=== PATIENT | male | born 1945 | race Caucasian/White ===

== ENCOUNTER 2022-02-05 14:23 | Outpatient (CLI) | payer MEDICARE, SELFPAY ==
[2022-02-05 17:50] LABS: Cholesterol* 167 mg/dL (90-199); HDL Cholesterol* 57 mg/dL (>=40); LDL Cholesterol Calculated 87 mg/dL (<100); Triglycerides* 116 mg/dL (40-149)
== END 2022-02-05 14:24 | disposition home or self-care (01) ==
LOC: NFLDREF 14:23
PROVIDERS: PCP Internal Medicine; Visit Provider Internal Medicine
DX: I25.10 Atherosclerotic heart disease of native coronary artery without angina pectoris (principal); I10 Essential (primary) hypertension
CPT/HCPCS: 80061

== ENCOUNTER 2022-11-11 15:45 | Outpatient (RCR) | payer MEDICARE, SELFPAY ==
--- NOTE | 2022-10-01 15:47 | PT.OPEX ---
PT [place] Outpatient Eval INITIAL EVAL MEDICARE REQUIRES SIGNATURE PT [facility] Outpatient Eval Start: 10/01/22 07:33 Freq: Status: Active Protocol: Document 10/01/22 07:33 ADRIEN (Rec: 10/01/22 15:43 ADRIEN [id number]) E-signed By Enzo Caballero DPT Physical Therapy Outpatient Evaluation Insurance Information Recert Due Date 12/25/22 Insurance Name Medicare B Insurance Information/Comments AARP Medical Diagnosis L TKA Treating Diagnosis L knee pain muscle weakness Referring MD Alec corbett Subjective Subjective Vel comes into clinic for a pre op visit prior to his L TKA on 10/07/22. Does notice he has some 'knock knee' presentation. Does note he has a cartilage condition where it has effected more of joints . States he has a hard time, walking, standing, sitting any prolonged activity really irritates it. HE is unable to perform stairs with the L knee . Overall just wants to get back into normal activity along with working in his [employer]op. Date of Surgery (If applicable) 10/13/22 Current Work Status Retired Objective Other/Pertinent Objective GAIT/FUNCTIONAL MOBILITY ambulates in step through pattern with increased knee valgus KNEE ROM L 2-134 LLE MMT: Hip flexion: L 4/5 Hip abduction: L4- /5 Knee flexion:L 4/5 Knee extension: L4 /5 TX: long sitting quad set x10 w/5 sec isometric hold performed ankle pumps x10 supine hamstring sets x10 w/5 sec isometric hold supine SAQ x10 w/cueing for isometric contraction at top of arc of motion with slow eccentric supine SLR flexion x10 w/ cueing for isometric contraction at top of arc of motion with slow eccentric supine heel slide x 10 w/3-5 sec hold at end range holding for stretch seated LAQ x10 w/cueing for isometric contraction at top of arc of motion with slow eccentric seated heel slides x5 with 30 sec holds into stretch passive knee ext stretch x 3 min - education on longer duration post-op educated on frequency to perform HEP post operatively Assessment Assessment/Impression Pt is a 77 yr old male who presents with concerns of L knee pain and pre op visit before L TKA. Patient also has notable objective findings including limited ROM, impaired balance, decreased strength also likely contributing to the problem. Patient is a good candidate for skilled therapy to target deficits described above. Skilled PT intervention is necessary for use of therapeutic exercise manual therapy, neuromuscular re- education, gait training, and therapeutic activity. Functional impairments include difficulty with: walking, standing, stairs, . See appropriate sections of PT eval for complete list of goals and POC. D/C plan and criteria is for pt to achieve the goals as listed below or until max rehab potential is met. Pt was agreeable with plan of care and goals established Plan of Care Rehabilitation Potential Excellent Physical Therapy Goals TKA GOALS STG (within 5 weeks ) 1) Pt will improve knee AROM at least 0 to 100 for improved sit to stand transfers 2) Pt will demonstrate negative extensor lag during straight leg raise exercise with ability to complete at least 15 reps with 5 sec hold to improve strength for ambulation 3) Patient will demonstrate/ report ability to walk for 15 minutes w/SPC with pain level <1/10, to allow for community and household ambulation. 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 Coordination/Communication With Referral Source Treatment Plan/Direct Interventions Gait Training,Joint Mobilization,Manual Therapy, Neuromuscular Re-ed,Self-Care/ Home Management,Therapeutic Activities,Therapeutic Exercises Frequency/Duration 1-2 a week for 8-16 weeks Patient Will Be Discharged From Therapy Completion of LTG(s), Independent w/HEP Evaluation Billing Untimed Code Treatment Minutes 20 Complexity Low Certification Information Initial Certification Date 10/01/22 Ending Certification Date 12/25/22 Physician Comment/Change : Physician NPI Number #
== END 2023-01-06 13:34 | disposition home or self-care (01) ==
PROVIDERS: PCP Internal Medicine; Visit Provider Orthopaedic Surgery Sports Medicine
DX: M17.12 Unilateral primary osteoarthritis, left knee (principal); M25.562 Pain in left knee; M62.81 Muscle weakness (generalized); Z96.652 Presence of left artificial knee joint; Z51.89 Encounter for other specified aftercare
CPT/HCPCS: 97110; 97112; 97140; 97161; 97164; 97530

== ENCOUNTER 2023-03-12 10:53 | Emergency (ER) | payer MEDICARE, SELFPAY ==
[2023-03-12 10:59] VITALS: BP 149/87; PULSE 74; RESP 16; TEMP 37.1; O2SAT 96; BMI 29.0
[2023-03-12] MEDS: LIDOCAINE 1 % PF 30 ML INJECTION (11:40)
[2023-03-12] MEDS: TETANUS/DIPHTH/PERTUSSIS 0.5 ML SYRINGE IM (12:07)
--- NOTE | 2023-03-12 12:43 | ED.NURSE ---
after stitches, bacitracin, Telfa, tube gauze, applied per tyler from
[2023-03-12 13:00] VITALS: BP 140/97; PULSE 75; RESP 16
--- NOTE | 2023-03-12 14:13 | ED.WOUNDLAC ---
HPI - Wound/Laceration General Date Seen: 03/12/23 Chief Complaint: Laceration/Wound Stated Complaint: L index finger lac Time Seen by Provider: 03/12/23 11:06 Source: patient Mode of arrival: ambulatory Limitations: no limitations History of Present Illness HPI narrative: Patient is a very nice 78-year-old gentleman who was doing some woodworking in a shop, and injured his left index finger, he ripped it through. But is able to move his finger normally, denies any numbness tingling, but thought he probably needs stitches. Sure when his last tetanus shot is, he is on no Coumadin, presents here for help. Place: home Patient tetanus UTD: No Context: accidental Associated symptoms: none Treatments prior to arrival: bandage Related Data Home Medications Medication Instructions Recorded Confirmed desoximetasone 0.25 % topical cream 1 applic topical BID PRN 02/05/22 11/17/22 diclofenac sodium 1 % topical gel 2 g topical BID PRN 02/05/22 11/17/22 multivitamin (Multiple Vitamins 1 tab PO QAM 02/05/22 11/17/22 tablet) timolol maleate 0.25 % eye drops 1 drp ophthalmic (eye) QAM 02/05/22 11/17/22 albuterol sulfate 90 mcg/actuation 2 inh inhalation Q4H PRN 10/05/22 11/17/22 aerosol inhaler fluorouracil 5 % topical cream 1 applic topical Q7D 10/05/22 11/17/22 mirtazapine 7.5 mg tablet 7.5 mg PO HS 10/05/22 11/17/22 Previous Rx's Medication Instructions Recorded bupropion HCl 150 mg 24 hr tablet, 150 mg PO DAILY #90 tabs 02/05/22 extended release hydrochlorothiazide 25 mg tablet 25 mg PO DAILY #90 tabs 02/05/22 escitalopram oxalate 20 mg tablet 20 mg PO QDAY #90 tabs 06/11/22 acetaminophen 500 mg capsule 500 - 1,000 mg (1 - 2 x 500 mg) PO 10/08/22 Q6H PRN #100 caps atomoxetine 40 mg capsule 40 mg PO QDAY #30 caps 12/02/22 (Strattera) pantoprazole 40 mg tablet,delayed 40 mg PO DAILY #90 tabs 01/05/23 release clopidogrel 75 mg tablet 75 mg PO DAILY #90 tabs 02/23/23 Allergies Allergy/AdvReac Type Severity Reaction Status Date / Time cephalexin Allergy Severe Swelling Verified 03/12/23 10:59 of Lip/Tongue/Throat clindamycin Allergy Mild Rash Verified 03/12/23 10:59 Review of Systems Status of ROS: Reports: 6 or more systems reviewed and unremarkable except as noted in History and below [facility] Medical History History of opioid abuse ?F11.11 - Opioid abuse, in remission (ICD-10) History of alcohol use disorder ?Z87.898 - Personal history of other specified conditions (ICD-10) Arterial dissection ?I77.70 - Dissection of unspecified artery (ICD-10) History of pancreatitis ?Z87.19 - Personal history of other diseases of the digestive system (ICD-10) Surgical History (Updated 11/17/22 @ 09:38 by Yecenia Nina) 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) ?Z96.659 - Presence of unspecified artificial knee joint (ICD-10) Status post total shoulder replacement (2016) ?Z96.619 - Presence of unspecified artificial shoulder joint (ICD-10) 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) ?Z96.649 - Presence of unspecified artificial hip joint (ICD-10) History of cholecystectomy (05/06/11) ?Z90.49 - Acquired absence of other specified parts of digestive tract (ICD-10) History of cataract extraction (2019) ?Z98.49 - Cataract extraction status, unspecified eye (ICD-10) Family History (Updated 09/22/22 @ 12:23 by Cailin Davies RN) Sister High blood pressure Breast cancer Mother High blood pressure Father High blood pressure Angina at rest CHF (congestive heart failure) Social History (Reviewed 11/17/22 @ 09:19 by Ana Martin [facility], [facility]) Highest level of school completed/degree received: Doctoral degree Smoking Status: Former smoker What tobacco products do you use: cigarettes Years smoked: 8 Smoking quit date/years: >15 years ago Do you use any of these nicotine containing products: None How often do you have a drink containing alcohol: monthly or less Alcohol type: wine How many standard drinks containing alcohol do you have on a typical day: 1 or 2 AUDIT-C Alcohol total score: 1 Non-prescribed substance use: marijuana (any form) Non-prescribed substance use details: THC Gummies Caffeine: Yes (coffee, 1-2 cups/am) Little interest or pleasure in doing things: several days Feeling down, depressed, or hopeless: more than half the days Exam Narrative: Exam Narrative: Examination of left index finger shows normal range of motion is pretty significant PIP arthritis, but is able to extend it fully and flex it fully at both the PIP and the IP joint is sensation is normal over his finger also. Cap refill is excellent. There is a flap, between his PIP and D IP, and area of avulsion within this. The flap is approximately 2 cm in the area of avulsed skin which appears to be more than just epidermal. Is approximately 1 and half to 2 centimeter sq. I explained to him that I can so up part of the flap part of it will have to fill in by secondary intention the good news is there is no exposed tendon. Modified the inter digital block was done with 1% lidocaine without epinephrine x4 mL. I was able to and the sewed up with 3 simple 4-0 sutures. Bacitracin dry dressing applied, no evidence of any foreign bodies. Estimated blood loss less than 1 mL no complication Const: Vital Signs, click to edit/add: Vital Signs - 24 hr 03/12/23 10:59 03/12/23 13:00 Temperature 98.7 F Pulse Rate [Pulse Oximeter] 74 75 Respiratory Rate 16 16 Blood Pressure [Ri ght Upper Arm] 149/87 H 140/97 H Pulse Oximetry 96 Oxygen Delivery Me thod Room Air Documenting provider has reviewed patient's vital signs: yes Course Vital Signs Vital signs: Initial Vital Signs Temperature 98.7 F 03/12/23 10:59 Temperature Source Temporal Artery Scan 03/12/23 10:59 Pulse Rate 74 03/12/23 10:59 Respiratory Rate 16 03/12/23 10:59 Blood Pressure 149/87 H 03/12/23 10:59 Blood Pressure Mean 107 H 03/12/23 10:59 Blood Pressure Position Sitting 03/12/23 10:59 Pulse Oximetry 96 03/12/23 10:59 Oxygen Delivery Method Room Air 03/12/23 10:59 Vital Signs Temperature 98.7 F 03/12/23 10:59 Pulse Rate 74 03/12/23 10:59 Respiratory Rate 16 03/12/23 10:59 Blood Pressure 149/87 H 03/12/23 10:59 Pulse Oximetry 96 03/12/23 10:59 Oxygen Delivery Method Room Air 03/12/23 10:59 Temperature 98.7 F 03/12/23 10:59 Pulse Rate 75 03/12/23 13:00 Respiratory Rate 16 03/12/23 13:00 Blood Pressure 140/97 H 03/12/23 13:00 Pulse Oximetry 96 03/12/23 10:59 Oxygen Delivery Method Room Air 03/12/23 10:59 Discharge Plan Discharge Clinical Impression: Finger laceration Patient Disposition: Home, Self-Care Condition: Improved Instructions: Finger Laceration (ED) Additional Instructions: Home rest use of medication for pain Tylenol ibuprofen, bacitracin daily on the wound, sutures should come out in 14 days, signs of infection such as redness fever swelling increasing pain then you should come back and be seen. Activity Level: No Restrictions Prescriptions: No Action timolol maleate 0.25 % drops 1 drp ophthalmic (eye) QAM diclofenac sodium 1 % gel 2 g topical BID PRN desoximetasone 0.25 % cream 1 applic topical BID PRN multivitamin [Multiple Vitamins] Tablet 1 tab PO QAM hydrochlorothiazide 25 mg tablet 25 mg PO DAILY Qty: 90 3RF bupropion HCl 150 mg tablet extended release 24 hr 150 mg PO DAILY Qty: 90 3RF escitalopram oxalate 20 mg tablet 20 mg PO QDAY Qty: 90 3RF albuterol sulfate 90 mcg/actuation HFA aerosol inhaler 2 inh inhalation Q4H PRN fluorouracil 5 % cream 1 applic topical Q7D Rx Instructions: Apply topically to affected area one night (Wednesday) every week mirtazapine 7.5 mg tablet 7.5 mg PO HS acetaminophen 500 mg capsule 500 - 1,000 mg PO Q6H MDD 4000mg PRNQty: 100 0RF atomoxetine [Strattera] 40 mg capsule 40 mg PO QDAY Qty: 30 1RF Rx Instructions: take one cap daily for adhd pantoprazole 40 mg tablet,delayed release (DR/EC) 40 mg PO DAILY Qty: 90 2RF clopidogrel 75 mg tablet 75 mg PO DAILY Qty: 90 0RF Follow Up/Referrals: [place] Jacques MD [Primary Care Provider] - Stand Alone Forms: [employer] Info Instructions
== END 2023-03-12 13:00 | disposition home or self-care (01) ==
PROVIDERS: Emergency Provider Family Medicine; PCP Internal Medicine
DX: S61.211A Laceration without foreign body of left index finger without damage to nail, initial encounter (principal)
CPT/HCPCS: 12001; 90471; 90715; 99283; 99284; J2001

== ENCOUNTER 2023-03-19 08:24 | Outpatient (CLI) | payer MEDICARE, SELFPAY | END 2023-03-19 08:25 | disposition home or self-care (01) | LOC: NFLDREF 03-22 12:51 | PROVIDERS: PCP Internal Medicine; Referring Provider Internal Medicine; Visit Provider Internal Medicine | DX: I25.10 Atherosclerotic heart disease of native coronary artery without angina pectoris (principal); I10 Essential (primary) hypertension | CPT/HCPCS: 80048; 80061 ==

== ENCOUNTER 2023-11-29 08:51 | Inpatient (IN) | payer MEDICARE, SELFPAY ==
[2023-11-29] VITALS (19 sets, daily range): BP systolic 105–131; BP diastolic 60–93; PULSE 58–77; RESP 14–18; TEMP 36.9–38; O2SAT 91–98; BMI 28.2; BMI 28.0
--- NOTE | 2023-11-29 08:56 | ED.GENADULT ---
HPI - General Adult General Time Seen by Provider: 08:56 Date Seen: 11/29/23 Chief complaint: Skin/Abscess/Foreign Body Stated complaint: LT hand skin abscess Time Seen by Provider: 11/29/23 08:58 Source: patient, RN notes reviewed and old records reviewed Mode of arrival: ambulatory Limitations: no limitations History of Present Illness HPI narrative: 78-year-old male who comes in today with concern of infection of his left hand. Patient reports that he had a splinter in his left hand about 10 days ago, in developed a pus pocket and then the splinter came out but noted increased redness and swelling. Seen in two days ago and started on Bactrim, increased pain and swelling so came to the emergency department. Denies fever or chills, no nausea or vomiting. Related Data Home Medications ?Medication ?Instructions ?Recorded ?Confirmed desoximetasone 0.25 % topical cream 1 applic topical BID PRN 02/05/22 11/29/23 diclofenac sodium 1 % topical gel 2 g topical BID PRN 02/05/22 11/29/23 multivitamin (Multiple Vitamins 1 tab PO QAM 02/05/22 11/29/23 tablet) timolol maleate 0.25 % eye drops 1 drp ophthalmic (eye) QAM 02/05/22 11/29/23 albuterol sulfate 90 mcg/actuation 2 inh inhalation Q4H PRN 10/05/22 11/29/23 aerosol inhaler fluorouracil 5 % topical cream 1 applic topical Q7D 10/05/22 11/29/23 escitalopram oxalate 20 mg tablet 20 mg PO DAILY 11/29/23 11/29/23 Previous Rx's ?Medication ?Instructions ?Recorded acetaminophen 500 mg capsule 500 - 1,000 mg (1 - 2 x 500 mg) PO 10/08/22 Q6H PRN #100 caps clopidogrel 75 mg tablet 75 mg PO DAILY #90 tabs 03/25/23 hydrochlorothiazide 25 mg tablet 25 mg PO DAILY #90 tabs 03/25/23 mirtazapine 7.5 mg tablet 7.5 mg PO HS #90 tabs 03/25/23 pantoprazole 40 mg tablet,delayed 40 mg PO DAILY #90 tabs 03/25/23 release bupropion HCl 150 mg 24 hr tablet, 150 mg PO DAILY #90 tabs 12/01/23 extended release methylphenidate HCl 18 mg 18 mg PO QAM #90 tabs 09/02/23 tablet,extended release 24 hr (Concerta) sulfamethoxazole 800 1 tab PO BID 7 days #14 tabs 11/27/23 mg-trimethoprim 160 mg tablet Allergies Allergy/AdvReac Type Severity Reaction Status Date / Time cephalexin Allergy Severe Swelling Verified 11/29/23 09:01 of Lip/Tongue/Throat clindamycin Allergy Mild Rash Verified 11/29/23 09:01 [facility] Medical History (Updated 11/29/23 @ 09:40 by Luis Esposito MD) History of arterial dissection ?Z86.79 - Personal history of other diseases of the circulatory system (ICD-10) History of pancreatitis ?Z87.19 - Personal history of other diseases of the digestive system (ICD-10) Surgical History 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) ?Z96.659 - Presence of unspecified artificial knee joint (ICD-10) Status post total shoulder replacement (2016) ?Z96.619 - Presence of unspecified artificial shoulder joint (ICD-10) 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) ?Z96.649 - Presence of unspecified artificial hip joint (ICD-10) History of cholecystectomy (05/06/11) ?Z90.49 - Acquired absence of other specified parts of digestive tract (ICD-10) History of cataract extraction (2019) ?Z98.49 - Cataract extraction status, unspecified eye (ICD-10) Family History Sister High blood pressure Breast cancer Mother High blood pressure Father High blood pressure Angina at rest CHF (congestive heart failure) Social History What is your current living situation?: I presently have a place to live Problems where you live: no known problems Problems where you live details: NA In the past 12 months, utilities in danger of being shut off: no In past 12 months, lack of transportation kept you from medical appts, meetings, work, or getting things needed for daily living: yes In the past 12 mos, have been you worried that your food would run out before you had money to buy more?: never true In the past 12 mos, the food you bought just didn't last and you didn't have money to buy more?: never true Highest level of school completed/degree received: Master's degree Smoking Status: Former smoker What tobacco products do you use: cigarettes Years smoked: 8 Smoking quit date/years: >15 years ago Do you use any of these nicotine containing products: None Second hand tobacco smoke exposure: No How often do you have a drink containing alcohol: monthly or less Alcohol type: wine and hard liquor How many standard drinks containing alcohol do you have on a typical day: 1 or 2 How often do you have six or more drinks on one occasion: Never AUDIT-C Alcohol total score: 1 Non-prescribed substance use: marijuana (any form) Non-prescribed substance use details: THC Gummies Caffeine: Yes (coffee and tea) How often does anyone, including family, friends and others, physically hurt you: never How often does anyone, including family, friends and others, insult or talk down to you: rarely How often does anyone, including family, friends and others, threaten you with harm: never How often does anyone, including family, friends and others, scream or curse at you: never Little interest or pleasure in doing things: several days Feeling down, depressed, or hopeless: several days service: No Exam Narrative: Exam Narrative: General: Well-developed and well-nourished, no acute distress Head: Atraumatic and normocephalic Eyes: Pupils are equal reactive, extraocular motions intact, conjunctiva clear ENT: External nose and ears are normal, posterior pharynx without erythema or exudate Neck: No midline cervical tenderness, full spontaneous range of motion the neck, trachea midline, no adenopathy Heart: Regular rate and rhythm no murmurs or thrills Lungs: Clear to auscultation bilaterally without wheezes or crackles Abdomen: Soft, nontender, nondistended with active bowel sounds Musculoskeletal: Left hand- palmar swelling over the distal 3rd metacarpal with central pustule, on the dorsum of the hand there is some redness between the 2nd and 3rd metacarpals with streaking on the extensor surface the forearm to the elbow Neurologic: Awake, alert, and oriented x3, no gross focal neurologic deficits, cranial nerves intact as tested Psych: Mood and affect are appropriate Skin: No rashes Const: Vital Signs, click to edit/add: Vital Signs - 24 hr 11/29/23 08:56 11/29/23 10:09 11/29/23 10:10 Temperature 99.1 F Pulse Rate 60 61 Pulse Rate [Left P ulse Oximeter] Pulse Rate [Pulse Oximeter] 66 Respiratory Rate 14 18 18 Blood Pressure 113/71 116/71 Blood Pressure [Ri ght Arm] Blood Pressure [Ri ght Upper Arm] 119/73 Pulse Oximetry 96 97 98 Oxygen Delivery Me thod Room Air 11/29/23 10:15 11/29/23 10:20 11/29/23 10:25 Temperature Pulse Rate 60 59 L 59 L Pulse Rate [Left P ulse Oximeter] Pulse Rate [Pulse Oximeter] Respiratory Rate 18 16 14 Blood Pressure 117/72 119/73 110/68 Blood Pressure [Ri ght Arm] Blood Pressure [Ri ght Upper Arm] Pulse Oximetry 97 97 97 Oxygen Delivery Me thod Room Air Room Air Room Air 11/29/23 10:30 11/29/23 10:35 11/29/23 10:40 Temperature Pulse Rate 59 L 59 L 58 L Pulse Rate [Left P ulse Oximeter] Pulse Rate [Pulse Oximeter] Respiratory Rate 16 16 16 Blood Pressure 111/70 105/65 113/73 Blood Pressure [Ri ght Arm] Blood Pressure [Ri ght Upper Arm] Pulse Oximetry 97 98 96 Oxygen Delivery Me thod Room Air Room Air Room Air 11/29/23 10:45 11/29/23 10:50 11/29/23 11:00 Temperature 98.8 F Pulse Rate 59 L 59 L 70 Pulse Rate [Left P ulse Oximeter] Pulse Rate [Pulse Oximeter] Respiratory Rate 16 16 16 Blood Pressure 114/69 115/72 117/93 H Blood Pressure [Ri ght Arm] Blood Pressure [Ri ght Upper Arm] Pulse Oximetry 97 98 95 Oxygen Delivery Me thod Room Air Room Air Room Air 11/29/23 13:33 11/29/23 13:45 Temperature 98.5 F 98.5 F Pulse Rate 65 Pulse Rate [Left P ulse Oximeter] 65 Pulse Rate [Pulse Oximeter] Respiratory Rate 18 18 Blood Pressure 119/60 Blood Pressure [Ri ght Arm] 119/60 Blood Pressure [Ri ght Upper Arm] Pulse Oximetry 95 95 Oxygen Delivery Me thod Room Air Room Air Course Course ED Course: Review prior urgent care visit from November 26 at which time ooze seen with palmar swelling and left hand min going on for several days, patient was started on Bactrim and notes increased pain since then. Reevaluation(s) Time of Reevaluation #1: 09:38 Reevaluation #1: Care discussed Dr. Ortiz, orthopedics, who evaluated the patient. Plan to go to OR for incision and drainage with washout, agrees with plan for admission afterward. Does request that antibiotics be held until after procedure. Time of Reevaluation #2: 10:23 Reevaluation #2: Labs ordered and independently interpreted by mood normal CBC, normal basic panel. On discussion with hospitalist Dr. Douglas, was informed there were no hospital beds after being told at the beginning and shows that there was 1 bed left the hospital. Spoke with warehouse puller, patient is in the OR now and will need to determine disposition. Vital Signs Vital signs: Initial Vital Signs Temperature 99.1 F 11/29/23 08:56 Temperature Source Temporal Artery Scan 11/29/23 08:56 Pulse Rate 66 11/29/23 08:56 Respiratory Rate 14 11/29/23 08:56 Blood Pressure 119/73 11/29/23 08:56 Blood Pressure Mean 88 11/29/23 08:56 Blood Pressure Position Sitting 11/29/23 08:56 Pulse Oximetry 96 11/29/23 08:56 Oxygen Delivery Method Room Air 11/29/23 08:56 Vital Signs Temperature 99.1 F 11/29/23 08:56 Pulse Rate 66 11/29/23 08:56 Respiratory Rate 14 11/29/23 08:56 Blood Pressure 119/73 11/29/23 08:56 Pulse Oximetry 96 11/29/23 08:56 Oxygen Delivery Method Room Air 11/29/23 08:56 Temperature 98.5 F 11/29/23 13:45 Pulse Rate 65 11/29/23 13:45 Respiratory Rate 18 11/29/23 13:45 Blood Pressure 119/60 11/29/23 13:45 Pulse Oximetry 95 11/29/23 13:45 Oxygen Delivery Method Room Air 11/29/23 13:45 Medications Administered Medications: Generic Name Dose Route Start Last Admin Trade Name Freq PRN Reason Stop Dose Admin Lactated Ringer's 1,000 mls @ 75 mls/hr 11/29/23 13:32 11/29/23 14:44 Lactated Ringers 1000 Ml IV 75 mls/hr .[id number] EDIE Administration Piperacillin Sod/Tazobactam 100 mls @ 200 mls/hr 11/29/23 15:00 11/29/23 15:28 Sod 3.375 gm/ Sodium Chloride IVPB 200 mls/hr Q6H EDIE Administration Discontinued Medications Generic Name Dose Route Start Last Admin Trade Name Freq PRN Reason Stop Dose Admin Bupivacaine HCl 10 ml 11/29/23 10:57 11/29/23 10:25 Bupivacaine 0.5 % 10 Ml Vial INJECTION 11/29/23 10:58 5 ml ONCE ONE Administration Lidocaine/Epinephrine 20 ml 11/29/23 10:58 11/29/23 10:25 Lidocaine 1%-Epi 1:100,000 20 Ml INFILTRATI 11/29/23 10:59 5 ml ONCE ONE Administration Oxycodone HCl 2.5 mg 11/29/23 12:00 11/29/23 12:00 Oxycodone 5 Mg Tablet PO 11/29/23 12:01 2.5 mg ONCE ONE Administration Oxycodone HCl 2.5 mg 11/29/23 12:45 11/29/23 13:47 Oxycodone 5 Mg Tablet PO 11/29/23 12:46 Not Given ONCE ONE Potassium Bicarbonate 50 meq 11/29/23 15:00 11/29/23 15:28 Potassium Bicarb 25 Meq Effervescent Tab PO 11/29/23 15:01 50 meq ONCE ONE Administration Medical Decision Making Lab Data Labs: Lab Results 11/29/23 Range/Units 09:43 WBC 10.17 (4.50-11.00) K/uL RBC 4.49 (4.30-5.90) m/uL Hgb 13.4 L (13.5-17.5) gm/dL Hct 40.8 (37.0-53.0) % MCV 91 (80-100) fL MCH 30 (26-34) pg MCHC 33 (32-36) gm/dL RDW Coeff of Eloy 14.0 (11.5-15.5) % Plt Count 240 (140-440) K/uL Neut % (Auto) 79.4 H (42.0-72.0) % Lymph % (Auto) 7.9 L (20-44) % Henry % (Auto) 9.5 (0.0-11.0) % Eos % (Auto) 2.7 (0.0-7.0) % Baso % (Auto) 0.3 (0.0-3.0) % Neut # (Auto) 8.10 H (1.7-7.0) K/uL Lymph # (Auto) 0.80 L (0.90-2.90) K/uL Henry # (Auto) 1.00 H (0.00-0.90) K/UL Eos # (Auto) 0.27 (0.00-0.50) K/uL Baso # (Auto) 0.03 (0.00-0.30) K/uL Abs Immat Gran (auto) 0.02 (0.00-0.30) K/uL Imm/Tot Granulo (auto) 0.2 % Sodium 137 (135-149) mmol/L Potassium 3.3 L (3.6-5.1) mmol/L Chloride 103 (96-114) mmol/L Carbon Dioxide 27 (20-32) mmol/L Anion Gap 7 (7-15) mEq/L BUN 11 (7-30) mg/dL Creatinine 0.7 (0.5-1.5) mg/dL Estimated Creat Clear 55.08 Estimated GFR 93 ml/min Glucose 120 H (60-115) mg/dL Calcium 8.8 (8.4-10.6) mg/dL Discharge Plan Discharge Clinical Impression: Abscess of left hand, Cellulitis of hand, left Patient Disposition: Admitted As Observation
[2023-11-29 09:51] LABS: Basophils Absolute Auto 0.03 K/uL (0.00-0.30); Basophils Percent Auto 0.3 % (0.0-3.0); Eosinophils Absolute Auto 0.27 K/uL (0.00-0.50); Eosinophils Percent Auto 2.7 % (0.0-7.0); Hematocrit 40.8 % (37.0-53.0); Hemoglobin* 13.4 gm/dL (13.5-17.5); Immature Granulocytes Abs Auto 0.02 K/uL (0.00-0.30); Immature Granulocytes Pct Auto 0.2 %; Lymphocytes Percent Auto 7.9 % (20-44); Mean Corpuscular HGB Conc 33 gm/dL (32-36); Mean Corpuscular Hemoglobin 30 pg (26-34); Mean Corpuscular Volume 91 fL (80-100); Monocytes Percent Auto 9.5 % (0.0-11.0); Neutrophils Percent Auto 79.4 % (42.0-72.0); Platelet Count* 240 K/uL (140-440); Red Blood Count 4.49 m/uL (4.30-5.90); White Blood Count* 10.17 K/uL (4.50-11.00)
[2023-11-29 09:53] LABS: Slide Review Reflex No
[2023-11-29 10:03] LABS: Chloride* 103 mmol/L (96-114)
[2023-11-29 10:04] LABS: Potassium* 3.3 mmol/L (3.6-5.1); Sodium* 137 mmol/L (135-149)
[2023-11-29 10:06] LABS: Creatinine* 0.7 mg/dL (0.5-1.5); Est. Creatinine Clearance* 55.08; Estimated Glomerular Filt Rate 93 ml/min
--- NOTE | 2023-11-29 10:06 | ED.NURSE ---
Patient presenting to ED with an abcess/infection to palm of his L hand. Pt reporting 2 weeks ago had a wooden sliver. Did not seek medical care until Wednesday, pt placed on Bactrim for possible cellulitis infection. Site has worsened and spread. Now reporting low grade fever with redness and swelling to area. PT to OR this visit for I&D. Verbal order from physician to hold ordered antibiotics. IV was placed and blood sent to lab.
[2023-11-29 10:07] LABS: Anion Gap 7 mEq/L (7-15); Blood Urea Nitrogen* 11 mg/dL (7-30); Calcium* 8.8 mg/dL (8.4-10.6); Carbon Dioxide* 27 mmol/L (20-32); Glucose* 120 mg/dL (60-115)
--- NOTE | 2023-11-29 10:08 | PM.ORCN ---
History of Present Illness HPI Date Seen: 11/29/23 Chief complaint: LT hand skin abscess Narrative: Vel is a pleasant 78-year-old male who presented [facility] ED on 11/29/2023 (today). This pertains to his left hand. He reports a splinter in his left hand approximately 10 days ago. Wood splinter. He noted a pus pocket was present but eventually this had rupture which resulted in the splinter coming out. Unfortunately, redness, pain, swelling persisted in the volar aspect on line with the left long finger near the MCP joint location. He does have swelling into the finger, but no hailey pain about the volar long finger. Seen in urgent care two days ago and started on Bactrim; unfortunately, still developed increased pain and swelling and thus present to the ED today. Orthopedics was consulted for possible surgical intervention. 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) ?Z96.649 - Presence of unspecified artificial hip joint (ICD-10) History of cholecystectomy (05/06/11) ?Z90.49 - Acquired absence of other specified parts of digestive tract (ICD-10) History of cataract extraction (2019) ?Z98.49 - Cataract extraction status, unspecified eye (ICD-10) Family History Sister High blood pressure Breast cancer Mother High blood pressure Father High blood pressure Angina at rest CHF (congestive heart failure) Social History What is your current living situation?: I presently have a place to live Problems where you live: no known problems In the past 12 months, utilities in danger of being shut off: no In past 12 months, lack of transportation kept you from medical appts, meetings, work, or getting things needed for daily living: no In the past 12 mos, have been you worried that your food would run out before you had money to buy more?: never true In the past 12 mos, the food you bought just didn't last and you didn't have money to buy more?: never true Highest level of school completed/degree received: Doctoral degree Smoking Status: Former smoker What tobacco products do you use: cigarettes Years smoked: 8 Smoking quit date/years: >15 years ago Do you use any of these nicotine containing products: None How often do you have a drink containing alcohol: monthly or less Alcohol type: wine How many standard drinks containing alcohol do you have on a typical day: 1 or 2 AUDIT-C Alcohol total score: 1 Non-prescribed substance use: marijuana (any form) Non-prescribed substance use details: THC Gummies Caffeine: Yes (coffee, 1-2 cups/am) How often does anyone, including family, friends and others, physically hurt you: never How often does anyone, including family, friends and others, insult or talk down to you: rarely How often does anyone, including family, friends and others, threaten you with harm: never How often does anyone, including family, friends and others, scream or curse at you: never Little interest or pleasure in doing things: several days Feeling down, depressed, or hopeless: several days Meds Home Medications and Allergies Home Medications ?Medication ?Instructions ?Recorded ?Confirmed ?Type desoximetasone 0.25 % topical cream 1 applic topical BID PRN 02/05/22 11/29/23 History diclofenac sodium 1 % topical gel 2 g topical BID PRN 02/05/22 11/29/23 History multivitamin (Multiple Vitamins 1 tab PO QA02/05/22 11/29/23 History tablet) timolol maleate 0.25 % eye drops 1 drp ophthalmic (eye) QA02/05/22 11/29/23 History albuterol sulfate 90 mcg/actuation 2 inh inhalation Q4H PRN 10/05/22 11/29/23 History aerosol inhaler fluorouracil 5 % topical cream 1 applic topical Q7D 10/05/22 11/29/23 History Allergies Allergy/AdvReac Type Severity Reaction Status Date / Time cephalexin Allergy Severe Swelling Verified 11/29/23 09:01 of Lip/Tongue/Throat clindamycin Allergy Mild Rash Verified 11/29/23 09:01 Ortho Exam Narrative Exam Narrative: He is lying supine in the emergency room bed. Cooperative with the exam. Memory intact both remote and recent events regarding today's presenting complaint. Left hand exam shows 1 cm scab over the volar MCP joint in line with the 3rd ray. Surrounding erythema over a 3 cm diameter region. Some erythema into the left long finger volarly and dorsally. There is swelling about the left long finger, but nontender along the volar flexor tendon region. He is able to actively flex his finger without significant pain. There is some tenderness in the left volar palm but this feels supple without significant swelling outside of the local 3 cm erythematous region. Minor erythema tracking into the dorsal aspect of the left forearm, subtle. Neurologically intact in the radial, ulnar, and median nerves to sensory light touch and motor function. Digit tip is pink, warm, brisk cap refill. Const Vital Signs, click to edit/add: Vital Signs - 24 hr 11/29/23 08:56 Temperature 99.1 F Pulse Rate [Pulse Oximeter] 66 Respiratory Rate 14 Blood Pressure [Right Upper Arm] 119/73 Pulse Oximetry 96 Oxygen Delivery Method Room Air Results Labs Labs: Laboratory Results - last 48 hr 11/29/23 09:43 WBC 10.17 RBC 4.49 Hgb 13.4 L Hct 40.8 MCV 91 MCH 30 MCHC 33 RDW Coeff of Eloy 14.0 Plt Count 240 Neut % (Auto) 79.4 H Lymph % (Auto) 7.9 L Citrus % (Auto) 9.5 Eos % (Auto) 2.7 Baso % (Auto) 0.3 Neut # (Auto) 8.10 H Lymph # (Auto) 0.80 L [place] # (Auto) 1.00 H Eos # (Auto) 0.27 Baso # (Auto) 0.03 Abs Immat Gran (auto) 0.02 Imm/Tot Granulo (auto) 0.2 Assessment and Plan Assessment and plan (1) Abscess of left hand: Status: Acute Plan Had a good discussion today with the patient. His was present as well. We recognize this abscess has been brewing for multiple days. He has been started on oral antibiotics 2 days ago in yet things still persists/worsens. In my opinion, I do think surgery is indicated to incise and drain this left hand abscess on the palmar aspect. Done this will be done within the next 30 minutes. Partly to decrease the abscess and bacterial load, but also partly to decrease the risk for freely in flexor tenosynovitis. I do not think he has this currently, but I think he is at risk for given its location. We discussed risks, benefits, and alternatives to the surgery. Specific for him, the risk for persistent infection, or development of purulent flexor tenosynovitis. I believe all questions were answered. We will plan to send a local anesthetic. I have coordinated care with the emergency room physician. Following the surgery, the plan will be to have the patient admitted to the hospitalist for IV antibiotics. Thereafter, eventually transitioning back to oral antibiotics when felt to be appropriate.
--- OUTSIDE RECORDS SUMMARY | 2023-11-29 10:11 | XMS_ITS ---
Author Organization [facility] Address [address] [place] [address] Care Team Providers Care Marine Steward Name Role Phone Unavailable Unavailable Unavailable Surgery Details Not on file Complications Check Surgery Details section. Procedure Estimated Blood Loss Check Surgery Details section. Procedure Findings Check Surgery Details section. Procedure Specimens Taken Check Surgery Details section.
--- OUTSIDE RECORDS SUMMARY | 2023-11-29 10:11 | XMS_ITS | Clinical Summary ---
Author Organization [facility] Address [address] [place] [address] Care Team Providers Care Network Support Specialist Name Role Phone Unavailable Primary Care Provider Unavailabl e Source Comments Patient records contain information from all sites at [facility]. For routine questions regarding patient records, call [phone] during business hours, M-F 8:00 AM - 5:00 PM Central Time. Record requests for emergency care only can be directed to [phone] at any time.[facility] Allergies Active Allergy Reactions Criticality Noted Date Comments Cephalexin Other (see comments),Swelling,Anap hylaxis High 03/15/2014 Difficult breathing Clindamycin Other (see comments) Low 03/25/2023 Nut - Unspecified Itching 06/22/2014 Pistachio Clams GI intolerance 06/22/2014 Medications Medication Sig Dispensed Refills Start Date End Date Status ascorbic acid, vitamin C, (VITAMIN C) 500 mg tablet Take 1 tablet by mouth 2 (two) times a day. 03/26/2015 Active buPROPion XL (WELLBUTRIN XL) 150 mg 24 hr tablet Take 150 mg by mouth. 02/01/2014 Active clopidogreL (PLAVIX) 75 mg tablet Take 75 mg by mouth. 02/01/2014 Active desoximetasone (TOPICORT) 0.25 % ointment Apply topically. Active diclofenac sodium (VOLTAREN) 1 % gel 02/27/2015 Active escitalopram (LEXAPRO) 20 mg tablet Take 1 tablet by mouth daily. 03/26/2015 Active hydroCHLOROthiazi de (HYDRODIURIL) 25 mg tablet 08/28/2018 Active miscellaneous medical supply [facility] [place] BIPAP machine for home use at pressure: EPAP min/max- 12cm/H2O, PS min/max- 3-15 cm/H2O, I time to 3, BR- 10; Heated humidifier x 1, 07/21/2018 Active methylphenidate HCl (RITALIN) 5 mg tablet 2 (two) times a day. 12/14/2015 Active mirtazapine (REMERON) 7.5 mg tablet Take 7.5 mg by mouth. 10/20/2018 Active multivitamin tablet Take 1 tablet by mouth daily. 03/26/2015 Active oxymetazoline (AFRIN) 0.05 % nasal spray Administer into affected nostril(s). 02/28/2018 Active pantoprazole (PROTONIX) 40 mg EC tablet Take 40 mg by mouth. 02/01/2014 Active timolol (TIMOPTIC) 0.25 % ophthalmic solution 09/21/2017 Active ketoconazole (NIZORAL) 2 % shampoo WASH AFFECTED AREAS ON FACE AND SCALP 2-3X WEEKLY. LATHER AND LET SIT FOR SEVERAL MINUTES BEFORE RINSING. 05/27/2023 Active ketoconazole (NIZORAL) 2 % cream APPLY A THIN LAYER TO AFFECTED AREA ON THE FOREHEAD 1-2X DAILY ONGOING. 05/27/2023 Active montelukast (SINGULAIR) 10 mg tablet Take 10 mg by mouth. 02/28/2018 11/24/2023 Discontinued( Discontinued by another clinician) multivitamin (THERAGRAN) tablet Take 1 tablet by mouth daily. 11/24/2023 Discontinued( Discontinued by another clinician) brimonidine (Alphagan) 0.2 % ophthalmic solution daily. 09/21/2017 11/24/2023 Discontinued( Discontinued by another clinician) gabapentin (Neurontin) 600 mg tablet Take 2 tablets by mouth 3 (three) times a day. 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 Dysfunction Somatic Cervical Region (Primary Dx); Dysfunction Somatic Thoracic Region; Dysfunction Somatic Lumbar Region; Scoliosis; Pain Myofascial 11/10/2023 8:00 AM CDT Comprehensive Visit Department of Spine in [place], [place] [address] [place] [phone] Regulo Tello APRN C.N.PHu [facility] Dysfunction Somatic Thoracic Region (Primary Dx); Dysfunction Somatic Cervical Region; Dysfunction Somatic Lumbar Region; Scoliosis; Pain Myofascial 08/30/2023 9:55 AM CDT - 08/30/2023 11:59 PM CDT [place] [address] [place] [phone] Regulo Tello APRN, C.N.P. Scoliosis Discharge Disposition: Home or Self Care 08/30/2023 8:00 AM CDT Comprehensive Visit Department of Spine in [place], [place] [address] [place] [phone] Regulo Tello APRN, C.N.P. Scoliosis (Primary Dx); Other Forms Of Scoliosis Lumbar Region; Pain Neck 08/30/2023 6:16 AM CDT - 08/30/2023 9:54 AM CDT [facility] [place] [place] [address] [place] [phone] Dionisio Carreon M.D. Other Forms Of Scoliosis Lumbar Region; Pain Back; Pain Neck Discharge Disposition: Home or Self Care from Last 3 Months Immunizations Name Administration Dates Next Due Influenza Split 03/20/2013 Pneumococcal, Unspecified 06/10/2013 Family History Medical History Relation Name Comments Rheum arthritis Sister 1 pat Sleep apnea Sister 1 pat Hypertension Sister 2 all Hyperlipidemia Sister 3 mark Skin cancer Sister 3 mark Sleep apnea Sister 3 mark Breast cancer Sister 4 domo Relation Name Status Comments Sister 1 pat Sister 2 all Sister 3 mark Sister 4 domo Social History Tobacco Use Types Packs/Day Years Used Date Smoking Tobacco: Former Cigarettes Q uit: 10/23/1975 Smokeless Tobacco: Never Tobacco Cessation:Counseling Given: Not Answered Alcohol Use Standard Drinks/Week Comments Yes 3 (1 standard drink = 0.6 oz pur e alcohol) Social Connection and Isolation Panel [NHANES] A nswer Date Recorded In a typical week, how many times do you talk on the phone with family, friends, or neighbors? Twice a week 01/23/2020 How often do you get together with friends or re latives? Once a week 01/23/2020 Attends Christianity Services Not on file 01/22 Active Member of Clubs or Organizations Not on f ile 01/23/2020 Attends Club or Organization Meetings Not on shanta e 01/23/2020 Marital Status Not on file 01/23/2020 AUDIT-C Answer Date Recorded Frequency of Alcohol Consumption 2-4 times a wed01/23/2020 Average Number of Drinks 1 or 2 020 Frequency of Binge Drinking Never 05/2019 Overall Financial Resource Strain (CARDIA) Answe r Date Recorded How hard is it for you to pa y for the very basics like food, housing, medical care, and heating? Not very hard 01/23/2020 [facility] - Occupational Stress Questionnaire Answer Date Recorded Feeling of Stress Rather much 01/23/2020 Exercise Vital Sign Answer Date Recorde d On average, how many days pe r week do you engage in moderate to strenuous exercise (like a brisk walk)? 3 days 01/23/2020 On average, how many minutes do you engage in exercise at this level? 50 min 01/23/2020 Hunger Vital Sign Answer Date Recorded Worried About Running Out of Food in the Last Ye ar Never true 01/23/2020 Ran Out of Food in the Last Year Never true 01/23/2020 PRAPARE - Transportation Answer Date Re corded Lack of Transportation (Medical) No 01/23/2020 Lack of Transportation (Non-Medical) No 01/23/2020 Nutrition Answer Date Recorded Nutrition: EVOO Fat Source No 01/22 On average, how many serving s of fruits and vegetables do you eat per day (serving size is equal to 1 cup or approximately the size of a tennis ball)? 2-3 01/23/2020 Dental Answer Date Recorded Dental: Regular Dentist Unknown 02/24/20 23 Education Answer Date Recorded What is the highest level of school you have completed or the highest degree you have received? Doctorate 11/07/2018 Sex and Gender Information Value Date Recorded Sex Assigned at Male 11/07/2018 10:45 PM CDT Gender Identity Male 11/07/2018 10:38 PM CDT Sexual Orientation Straight 11/07/2018 10 :38 PM CDT Last Filed Vital Signs Vital Sign Reading Time Taken Comments Blood Pressure 128/71 11/10/2023 7:50 AM CDT Pulse 73 11/10/2023 7:50 AM CDT Temperature - - Respiratory Rate 14 07/11/2014 1:05 PM ZINC SKIMMER Vital sign result from Clinical Notes. Oxygen Saturation - - Inhaled Oxygen Concentration - - Weight 86.4 kg (190 lb 7.6 oz) 06/08/2023 3:13 PM ZINC SKIMMER Height 169.2 cm (5' 6.61) 06/08/2023 3 :13 PM ZINC SKIMMER Body Mass Index 30.18 06/08/2023 3:13 PM ZINC SKIMMER Plan of Treatment Upcoming Encounters Date Type Department Care Team (Late st Contact Info) Description 12/08/2023 9:00 AM CDT Office Visit Department of Spine in [place], [place] [address] [place] [address] [facility] [address] [place] [phone] 01/06/2024 7:30 AM CDT Office Visit Department of Spine in [place], [place] [address] [place] [address] [facility] [address] [place] [phone] Health Maintenance Due Date Last Done Comments Zoster Vaccines (1 of 2) 1993 Pneumococcal vaccine (65+ ye ars) (2 of 2 - PPSV23 or PCV20) 06/05/2016 06/05/2015, 06/10/2013, 06/10/2013 Depression Screening (Annual PHQ-2) 05/24/2023 Fall Risk Screen (Annual) 05/24/2023 COVID-19 Vaccine (2022-2 4 season) 2023 02/17/2023, 04/08/2022, 10/29/2021, Additional history exists Influenza Vaccine (#1) 2024 , 04/08/2022, 07/31/2019, Additional history exists Creatinine Level (Kidney Fun ction Test) 06/08/2024 06/08/2023, 10/15/2020, 01/20/2013, Additional history exists Potassium Level 06/08/2024 06/08/2023, 09/22, 01/20/2013, Additional history exists Sodium Level 06/08/2024 06/08/2023, 09/22, 01/20/2013, Additional history exists DTaP,Tdap,and Td Vaccines (4 - Td or Tdap) 03/12/2033 03/12/2023, 03/12/2014, 05/08/2013 Medical Devices Implanted Type Area Lens Molder Device Identifier Shelf Expiration Date Model / Serial / Lot Conversions - Default Historical Implant Device Implanted:09/12 (Quantity not on file) Hip Implant Description:Device Status Te xt - Hip Imp. Conversions - Default Historical Implant Device Implanted:09/12 (Quantity not on file) Hip Implant Description:Device Status Te xt - Hip Imp. Knee Implant Knee Implant Left: Knee Description:Knee replacement 10/07/2022 Conversions - Default Historical Implant Device Implanted:06/22 (Quantity not on file) Misc Other Description:Device Status Te xt - MiscOther. left shoulder and right hip implant. Conversions - Default Historical Implant Device Implanted:09/12 (Quantity not on file) Shoulder Implant Description:Device Status Te xt - Shoulder. Procedures Procedure Name Priority Date/Time Associated Diagnosis Comments DX ENTIRE SPINE SCOLIOSIS 2-3 VIEWS RAD - Routine (most inpatients and all outpatients) 08/30/2023 10:37 AM CDT Scoliosis DX CERVICAL SPINE 2-3 VIEWS RAD - Routine (most inpatients and all outpatients) 08/30/2023 7:23 AM CDT Other Forms Of Scoliosis Lumbar Region Pain Neck DX LUMBAR SPINE 2-3 VIEWS RAD - Routine (most inpatients and all outpatients) 08/30/2023 7:23 AM CDT Other Forms Of Scoliosis Lumbar Region Pain Back SODIUM, S/P Routine 06/08/2023 6:53 AM ZINC SKIMMER Vascular Agustina Danlos Syndrome (HCC) POTASSIUM, S/P Routine 06/08/2023 6:53 AM ZINC SKIMMER Vascular Agustina Danlos Syndrome (HCC) CREATININE WITH EGFR, S/P Routine 06/08/2023 6:53 AM ZINC SKIMMER Vascular Agustina Danlos Syndrome (HCC) from Last 3 Months or Most Recently Relevant to Health Maintenance Results * DX Entire Spine Scoliosis 2-3 Views (08/30/2023 10:37 AM CDT) Anatomical Region Laterality Modality Spine, Musculoskeletal RST L OS, Neuroradiology ARZ LOS, Muskuloskeletal FLA LOS N/A Digital Radiography Impressions 08/30/2023 11:17 AM CDT Full-length standing views of the entire spine obtained for scoliosis evaluation. Thoracolumbar scoliosis with multilevel degenerative disc disease, marginal hypertrophic change, and degenerative facet arthritis. Right STAN. Left TSA. 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 Cholecystectomy. ?? Narrative 08/30/2023 11:17 AM CDT EXAM: ??DX ENTIRE SPINE SCOLIOSIS 2-3 VIEWS Procedure Note Saúl Paulino M.D. - 08/30/2023 EXAM: DX ENTIRE SPINE SCOLIOSIS 2-3 VIEWS IMPRESSION: Full-length standing views of the entire spine obtained for scoliosisevaluation. Thoracolumbar scoliosis with multilevel degenerative discdisease, marginal hypertrophic change, and degenerative facet arthritis.Right STAN. Left TSA. 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 Cholecystectomy. Regulo Tello APRN, C.N.P. IMG DIAGNOSTI C IMAGING PROCEDURES * DX Lumbar Spine 2-3 Views (08/30/2023 7:23 AM CDT) Anatomical Region Laterality Modality Lumbar Spine, Musculoskeleta l RST LOS, Neuroradiology ARZ LOS, Muskuloskeletal FLA LOS N/A Digital Radiography Impressions 08/30/2023 8:11 AM CDT Demineralization. Lumbar scoliosis, convex to the left. Advanced degenerative arthritis lumbar spine with facet joint arthropathy and diffuse disk space narrowing. Degenerative arthritis sacroiliac joints. Right STAN. Surgical clips RUQ. Narrative 08/30/2023 8:11 AM CDT EXAM: ??DX LUMBAR SPINE 2-3 VIEWS Procedure Note Himanshu Brownlee M.D. - 08/30/2023 EXAM: DX LUMBAR SPINE 2-3 VIEWS IMPRESSION: Demineralization. Lumbar scoliosis, convex to the left. Advanceddegenerative arthritis lumbar spine with facet joint arthropathy anddiffuse disk space narrowing. Degenerative arthritis sacroiliac joints.Right STAN. Surgical clips RUQ. Dionisio Carreon M.D. IMG DIAGNOSTIC IM AGING PROCEDURES * DX Cervical Spine 2-3 Views (08/30/2023 7:23 AM CDT) Anatomical Region Laterality Modality Cervical Spine, Musculoskele urszula RST LOS, Neuroradiology ARZ LOS, Muskuloskeletal FLA LOS N/A Digita l Radiography Impressions 08/30/2023 8:13 AM CDT Advanced degenerative arthritis of the cervical spine has progressed since 05/04/12. Hypertrophy at the cervical facet and uncovertebral joints. Degenerative narrowing of the C3-C7 interspaces. Reversal of the normal cervical lordosis. Low-grade anterior subluxation of C2 on C3 and C4 on C5. Posterior subluxation C3 on C4. ?? Narrative 08/30/2023 8:13 AM CDT EXAM: ??DX CERVICAL SPINE 2-3 VIEWS Procedure Note Himanshu Brownlee M.D. - 08/30/2023 EXAM: DX CERVICAL SPINE 2-3 VIEWS IMPRESSION: Advanced degenerative arthritis of the cervical spine has progressed since05/04/12. Hypertrophy at the cervical facet and uncovertebral joints.Degenerative narrowing of the C3-C7 interspaces. Reversal of the normalcervical lordosis. Low-grade anterior subluxation of C2 on C3 and C4 on C5. Posteriorsubluxation C3 on C4. Dionisio Carreon M.D. IMG DIAGNOSTIC IM AGING PROCEDURES * Sodium (06/08/2023 6:53 AM ZINC SKIMMER) Sodium, S 141 135 - 145 mmol/L 06/08/2023 7:55 AM ZINC SKIMMER DTL Blood (Blood, Venous) 06/08/2023 6:53 AM ZINC SKIMMER 06/08/2023 7:36 AM ZINC SKIMMER Dionisio Carreon M.D. LAB BLOOD ADD-ON Performing Organization Address City/[facility]/ZIP Co de Phone Number [facility] [address] [place] [address], [facility] [address] [address] * Potassium (06/08/2023 6:53 AM ZINC SKIMMER) Potassium, S 3.9 3.6 - 5.2 mmol/L 06/08/2023 7:55 AM ZINC SKIMMER DTL Blood (Blood, Venous) 06/08/2023 6:53 AM ZINC SKIMMER 06/08/2023 7:36 AM ZINC SKIMMER Dionisio Carreon M.D. LAB BLOOD ADD-ON Performing Organization Address City/[facility]/ZIP Co de Phone Number [facility] [address] [place] [address], [facility] [address] [address] * Creatinine with Estimated GFR (06/08/2023 6:53 AM ZINC SKIMMER) Creatinine 0.84 0.74 - 1.35 mg/dL 06/08/2023 7:55 AM ZINC SKIMMER DTL Estimated GFR (eGFR) 88 >=60 mL/min/BSA 06/08/2023 7:55 AM ZINC SKIMMER DTL Comment: Estimated GFR calculated using the 2020 CKD_EPI creatinine equation. Blood (Blood, Venous) 06/08/2023 6:53 AM ZINC SKIMMER 06/08/2023 7:36 AM ZINC SKIMMER Dionisio Carreon M.D. LAB BLOOD ADD-ON [facility] [address] [place] [address], [place] DTL [facility] [address] [place] [address] from Last 3 Months or Most Recently Relevant to Health Maintenance
--- OUTSIDE RECORDS SUMMARY | 2023-11-29 10:11 | XMS_ITS | Encounter Summary ---
Author Organization [facility] Address [address] [place] [phone] Care Team Providers Care Trial Justice Name Role Phone Unavailable Primary Care Provider Unavailabl e Reason for Referral * Outpatient (Routine) - Closed Specialty Diagnoses / Procedures Referred By Contac t Referred To Contact Diagnoses Scoliosis Procedures DX Entire Spine Scoliosis 2-3 Views Regulo Tello APRN, C.N.P. [address] [place] [phone] [facility] Referral ID Status Reason Start Date Expiration Date Visits Re quested Visits Authorized [id number] Closed 08/30/2023 08/29/2024 1 1 Reason for Visit * Outpatient (Routine) - Closed Specialty Diagnoses / Procedures Referred By Contac t Referred To Contact Diagnoses Scoliosis Procedures DX Entire Spine Scoliosis 2-3 Views Regulo Tello APRN, C.N.P. [address] [place] [phone] [facility] Referral ID Status Reason Start Date Expiration Date Visits Re quested Visits Authorized [id number] Closed 08/30/2023 08/29/2024 1 1 Encounter Details Date Type Department Care Team (Latest Contact Info) Description 08/30/2023 9:55 AM CDT - 08/30/2023 11:59 PM CDT Hospital Encounter Department of Radiology, [facility], in [place], [place] [address] [place] [address] Regulo Tello, LAUREANO, C.N.P. [address] [place] [address] Scoliosis Discharge Disposition: Home or Self Care Social History Tobacco Use Types Packs/Day Years Used Date Smoking Tobacco: Unknown Social Connection and Isolation Panel [NHANES] A nswer Date Recorded In a typical week, how many times do you talk on the phone with family, friends, or neighbors? Twice a week 01/23/2020 How often do you get together with friends or re latives? Once a week 01/23/2020 Attends Denominational Services Not on file 01/22 Active Member [...] care, and heating? Not very hard 01/23/2020 [facility] - Occupational Stress [...] Date Recorded Dental: Regular Dentist Unknown 02/24/20 Education Answer Date Recorded What is the highest level of school you have completed or the highest degree you have received? Doctorate 11/07/2018 Sex and Gender Information Value Date Recorded Sex Assigned at Male 11/07/2018 10:45 PM CDT Gender Identity Male 11/07/2018 10:38 PM CDT Sexual Orientation Straight 11/07/2018 10 :38 PM CDT documented as of this encounter Medications at Time of Discharge Medication Sig Dispensed Refills Start Date End Date ascorbic acid, vitamin C, (VITAMIN C) 500 mg tablet Take 1 tablet by mouth 2 (two) times a day. 03/26/2015 buPROPion XL (WELLBUTRIN XL) 150 mg 24 hr tablet Take 150 mg by mouth. 02/01/2014 clopidogreL (PLAVIX) 75 mg tablet Take 75 mg by mouth. 02/01/2014 desoximetasone (TOPICORT) 0.25 % ointment Apply topically. diclofenac sodium (VOLTAREN) 1 % gel 02/27/2015 escitalopram (LEXAPRO) 20 mg tablet Take 1 tablet by mouth daily. 03/26/2015 hydroCHLOROthiazide (HYDRODIURIL) 25 mg tablet 08/28/2018 ketoconazole (NIZORAL) 2 % cream APPLY A THIN LAYER TO AFFECTED AREA ON THE FOREHEAD 1-2X DAILY ONGOING. 05/27/2023 ketoconazole (NIZORAL) 2 % shampoo WASH AFFECTED AREAS ON FACE AND SCALP 2-3X WEEKLY. LATHER AND LET SIT FOR SEVERAL MINUTES BEFORE RINSING. 05/27/2023 methylphenidate HCl (RITALIN) 5 mg tablet 2 (two) times a day. 12/14/2015 mirtazapine (REMERON) 7.5 mg tablet Take 7.5 mg by mouth. 10/20/2018 miscellaneous medical supply [facility] [place] BIPAP machine for home use at pressure: EPAP min/max- 12cm/H2O, PS min/max- 3-15 cm/H2O, I time to 3, BR- 10; Heated humidifier x 1, 07/21/2018 multivitamin tablet Take 1 tablet by mouth daily. 03/26/2015 oxymetazoline (AFRIN) 0.05 % nasal spray Administer into affected nostril(s). 02/28/2018 pantoprazole (PROTONIX) 40 mg EC tablet Take 40 mg by mouth. 02/01/2014 timolol (TIMOPTIC) 0.25 % ophthalmic solution 09/21/2017 brimonidine (Alphagan) 0.2 % ophthalmic solution daily. 09/21/2017 11/24/2023 gabapentin (Neurontin) 600 mg tablet Take 2 tablets by mouth 3 (three) times a day. 07/15/2016 11/24/2023 montelukast (SINGULAIR) 10 mg tablet Take 10 mg by mouth. 02/28/2018 024 multivitamin (THERAGRAN) tablet Take 1 tablet by mouth daily. 11/24/2023 documented as of this encounter Plan of Treatment Upcoming Encounters Date Type Department Care Team (Late st Contact Info) Description 12/08/2023 9:00 AM CDT Office Visit Department of Spine in [place], [place] [address] [place] [phone] [facility] [address] [place] [phone] 01/06/2024 7:30 AM CDT Office Visit Department of Spine in [place], [place] [address] [place] [phone] [facility] [address] [place] [phone] documented as of this encounter Procedures Procedure Name Priority Date/Time Associated Diagnosis Comments DX ENTIRE SPINE SCOLIOSIS 2-3 VIEWS RAD - Routine (most inpatients and all outpatients) 08/30/2023 10:37 AM CDT Scoliosis documented in this encounter Results * DX Entire Spine Scoliosis 2-3 [...] APRN, C.N.P. 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
--- OUTSIDE RECORDS SUMMARY | 2023-11-29 10:11 | XMS_ITS | Encounter Summary ---
Author Organization [facility] Address [address] [place] [id number] Care Team Providers Care Color Depositing Machine Tender Name Role Phone Unavailable Primary Care Provider Unavailabl e Reason for Referral * Outpatient (Routine) - Closed Specialty Diagnoses / Procedures Referred By Contac t Referred To Contact Diagnoses Scoliosis Procedures DX Entire Spine Scoliosis 2-3 Views Regulo Tello APRN, C.N.P. [address] [place] [phone] [facility] Referral ID Status Reason Start Date Expiration Date Visits Re quested Visits Authorized [id number] Closed 08/30/2023 08/29/2024 1 1 * Outpatient (Routine) - Closed Specialty Diagnoses / Procedures Referred By Contac t Referred To Contact Spine Diagnoses Pain Neck Scoliosis Regulo Tello APRN, C.N.P. [address] [place] [phone] [facility] Referral ID Status Reason Start Date Expiration Date Visits Re quested Visits Authorized [id number] Closed 08/30/2023 02/28/2025 1 1 Reason for Visit * Outpatient (Routine) - Closed Specialty Diagnoses / Procedures Referred By Contac t Referred To Contact Spine Diagnoses Other Forms Of Scoliosis Lumbar Region Pain Neck Dionisio Carreon M.D. [address] [place] [address] [facility] Referral ID Status Reason Start Date Expiration Date Visits Re quested Visits Authorized [id number] Closed 06/08/2023 06/07/2024 1 1 Encounter Details Date Type Department Care Team (Latest Contact Info) Description 08/30/2023 8:00 AM CDT Comprehensive Visit Department of Spine in [place], [place] [address] [place] [phone] Regulo Tello, LAUREANO, C.N.P. [address] [place] [phone] Scoliosis (Primary Dx); Other Forms Of Scoliosis Lumbar Region; Pain Neck Social History Tobacco Use Types Packs/Day Years Used Date Smoking Tobacco: Unknown Social Connection and Isolation Panel [NHANES] A nswer Date Recorded In a typical week, how many times do you talk on the phone with family, friends, or neighbors? Twice a week 01/23/2020 How often do you get together with friends or re latives? Once a week 01/23/2020 Attends [employer] Not on file 01/22 Active Member [...] care, and heating? Not very hard 01/23/2020 [facility] Occupat ional Health - Occupational Stress [...] PM CDT documented as of this encounter Consult Notes * Regulo Tello, LAUREANO, C.N.P. - 08/30/2023 8:00 AM CDT CHIEF COMPLIANT: Scoliosis HISTORY OF PRESENT ILLNESS:Mr. Durbin is an 78-year-old patient from [place], [place], who returns to the [facility] for further evaluation of his neck pain and scoliosis. He met with Drs. Veronica and Shabnam back in 2012. He has also been followed by Dr. Urban in the Neurosurgery Clinic. Dr. Urban briefly discussed the option of pursuing a thoracolumbar instrumented fusion to stabilize the scoliosis, but given the patient's relatively minimal symptoms, they elected to continue with nonoperative measures. More recently, the patient met with Dr. Torres in the PM&R Clinic in 2019. At that point, they discussed pursuing a course of physical therapy. The patient had subsequent followup in our Vascular Medicine Clinic. He discussed with vascular medicine his concerns related to his ongoing neck and back pain. Therefore, he was referred back to the Spine Center by Dr. Carreon for further recommendations regarding management of his chronic neck and back pain. At the visit today, the patient describes pain located along his posterior cervical region, particularly over his right upper trapezius. He rates his pain as a 3. In addition to his neck and right shoulder-type pain, he also describes axial low back pain which is slightly more asymmetric to the left. He also describes a component of pain located near his right groin. He describes longstanding numbness in his left anterior thigh. He denies any radiation of symptoms into his arms or legs. He reports a longstanding history of weakness affect his left shoulder following a left total shoulder arthroplasty, but otherwise denies any new focal weakness to his arms or legs. He describes mild numbness in his bilateral feet, which has been longstanding. He has not noted any fine motor skill difficulties. He describes balance difficulties, but no falls. He has not had any fevers or unexplained weight loss. He denies any bowel or bladder dysfunction. He feels his posture has been worsening, particularly his coronal imbalance. He feels that his sagittal balance generally is maintained, but the more he is on his feet for long walks, the more sagittally imbalanced he becomes. TREATMENT: Physical therapy: Historically, he was very active with a home core strengthening routine, but overthe past year or two he has gotten out of his routine. He is not presently performing any core strengthening or low-impact aerobic conditioning programs. Spine injections: He has not had any spine injections over the past five or ten years. Pain medicines: He was utilizing opioids for many years, but completed our Pain Rehab program and is now only intermittently using Tylenol. He also was on gabapentin for a period of time, but he did not tolerate this. 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 CURRENT MEDICATIONS Current Outpatient Medications on File Prior to Visit Medication Sig Dispense Refill ascorbic acid, vitamin C, (VITAMIN C) 500 mg tablet Take 1 tablet by mouth 2 (two) times a day. buPROPion XL (WELLBUTRIN XL) 150 mg 24 hr tablet Take 150 mg by mouth. clopidogreL (PLAVIX) 75 mg tablet Take 75 mg by mouth. desoximetasone (TOPICORT) 0.25 % ointment Apply topically. diclofenac sodium (VOLTAREN) 1 % gel escitalopram (LEXAPRO) 20 mg tablet Take 1 tablet by mouth daily. hydroCHLOROthiazide (HYDRODIURIL) 25 mg tablet ketoconazole (NIZORAL) 2 % cream APPLY A THIN LAYER TO AFFECTED AREA ON THE FOREHEAD 1-2X DAILY ONGOING. ketoconazole (NIZORAL) 2 % shampoo WASH AFFECTED AREAS ON FACE AND SCALP 2-3X WEEKLY. LATHER AND LET SIT FOR SEVERAL MINUTES BEFORE RINSING. methylphenidate HCl (RITALIN) 5 mg tablet 2 (two) times a day. mirtazapine (REMERON) 7.5 mg tablet Take 7.5 mg by mouth. [facility] BIPAP machine for home use at pressure: EPAP min/max- 12cm/H2O, PS min/max- 3-15 cm/H2O, I time to 3, BR- 10; Heated humidifier x 1, montelukast (SINGULAIR) 10 mg tablet Take 10 mg by mouth. multivitamin (THERAGRAN) tablet Take 1 tablet by mouth daily. multivitamin tablet Take 1 tablet by mouth daily. oxymetazoline (AFRIN) 0.05 % nasal spray Administer into affected nostril(s). pantoprazole (PROTONIX) 40 mg EC tablet Take 40 mg by mouth. timolol (TIMOPTIC) 0.25 % ophthalmic solution No current facility-administered medications on file prior to visit. ALLERGIES Allergies Allergen Reactions Cephalexin Other (see comments), Swelling and Anaphylaxis Difficult breathing Nut - Unspecified Itching Pistachio Shellfish [Clams] GI intolerance Clindamycin Other (see comments) FAMILY HISTORY No family history on file. PHYSICAL EXAMINATION General: Well-developed, well-nourished individual who does not appear in any acute distress Mental: Appropriate mood and affect. Grossly oriented with coherent speech and thought processing. Spine: Inspection of the posterior cervical lumbar region did not reveal any redness, swelling or mass. Lumbar ROM limited by stiffness with both flexion and extension. His cervical range of motion is also limited flexion and extension as well as rotation. Palpation reveals an area of focal tenderness in spasms over his right upper trapezius Gait: Patient walks with a nonantalgic gait; he has difficulty with tandem gait; plantar and dorsi-flexion walking is normal; Strength: With independent testing of the bilateral upper and lower extremity strength is 5/5 throughout except left deltoid which has decreased range of motion secondary to his previous total shoulder arthroplasty Reflexes: Bilateral upper and lower extremity muscle stretch reflexes are physiologic and symmetric. No Im sign. Plantar responses are down going. No evidence of ankle clonus Provocative Maneuvers: Straight leg raise is negative. ROM of the bilateral hips did not reproduce the pain. Griffin sign is negative. Palpation over his right lateral hip reveals an area of focal tenderness. Cardiovascular: Pedal pulses are intact. No lower extremity edema. Respiratory: Breathing is comfortable and regular. DIAGNOSTICS Imaging: I reviewed his cervical spine x-ray dated from August 30, 2023, which reveals advanced multilevel spondylitic changes. He has reversal of his normal cervical lordosis. I anticipate he has ankylosed his C3-4 disk space. He also appears to have ankylosed several of his facet joints. He appearsto have a slight anterolisthesis of C2 on C3 and C4 on C5. He also appears to have a slight left-sided cervicothoracic scoliosis. I also reviewed his lumbar spine x-ray dated from August 30, 2023, compared it back to previous x-rays dated from March 22, 2020, as well as a full-length scoliosis x-ray dated from June 22, 2014.He is again noted to have a left- sided lumbar scoliosis that today I measure at approximately 53 degrees from the inferior endplate of T11 through the inferior endplate of L3. This is similar to the curvature from 2019 that I measured at approximately 49 degrees. When compared back to his full-length scoliosis x-ray from 2014, however, the curve has progressed about 10 degrees. 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 We discussed the multiple potential generators of his pain related to his spondylosis including his facet and disk degeneration. We also discussed that he likely has a component of myofascial pain. I do not detect any focal weakness. We discussed several different treatment modalities. With regard to his thoracolumbar scoliosis, although there has been some slow progression since he last saw Dr. Urban, at this time given the large magnitude ofsurgery in his other comorbidities I do not think surgery would be a good option and the patient isin agreement therefore we will continue focus on nonoperative treatment modalities. We discussed several options, and at the conclusion of our discussion he indicated and he is going to resume his home exercise core strengthening program. We also discussed options for therapeutic injections, including trigger point injections or facet-directed procedures. We discussed possible benefits of a TENS unit, acupuncture, topical ointments including capsaicin cream, as well as the role of myofascial release. The patient has had a good response to previous myofascial release, and he is interested in visiting with Dr. Mon. We reviewed signs and symptoms suggestive of progressive neurologic deterioration. He will contact me if he does not get good response with myofascial release with Dr. Mon or if he felt I could be of further assistance in his care. We have also elected to update his scoliosis x-ray. documented in this encounter Plan of Treatment Upcoming Encounters Date Type Department Care Team (Late st Contact Info) Description 12/08/2023 9:00 AM CDT Office Visit Department of Spine in [place], [place] [address] [place] [address] [facility] [address] [place] [phone] 01/06/2024 7:30 AM CDT Office Visit Department of Spine in [place], [place] [address] [place] [address] [facility] [address] [place] [phone] Scheduled Referrals Name Type Priority Associated Diagnoses Order Schedule Spine Clinic - Spine chiropractic consult (clinic) Outpatient Referral Routine Pain Neck Scoliosis Expected: 08/30/2023 (Approximate), Expires: 11/28/2024 documented as of this encounter Results * DX Entire Spine [...] documented in this encounter Visit Diagnoses Diagnosis Scoliosis- Primary Other Forms Of Scoliosis Lumbar Region Pain Neck Scoliosis documented in this encounter Additional Health Concerns Assessment Noted Time PHQ-9 Depression Total Score: 1 04/16/20 15 8:53 AM COAT EXAMINER documented as of this encounter
--- OUTSIDE RECORDS SUMMARY | 2023-11-29 10:11 | XMS_ITS | Encounter Summary ---
Author Organization [facility] Address [address] [place] [id number] Care Team Providers Care Banquet Line Cook Name Role Phone Unavailable Primary Care Provider Unavailabl e Reason for Referral * Outpatient (Routine) - Authorized Specialty Diagnoses / Procedures Referred By Contac t Referred To Contact Spine [facility] [address] [place] [phone] [facility] Referral ID Status Reason Start Date Expiration Date V isits Requested Visits Authorized [id number] Authorized 11/10/2023 05/11/2025 2 2 Reason for Visit * Outpatient (Routine) - Closed Specialty Diagnoses / Procedures Referred By Contac t Referred To Contact Spine Diagnoses Pain Neck Scoliosis Regulo Tello APRN, C.N.P. [address] [place] [phone] [facility] Referral ID Status Reason Start Date Expiration Date Visits Re quested Visits Authorized [id number] Closed 08/30/2023 02/28/2025 1 1 Encounter Details Date Type Department Care Team (Latest Contact Info) Description 11/10/2023 8:00 AM CDT Comprehensive Visit Department of Spine in [place], [place] [address] [place] [phone] Regulo Tello APRN, C.N.P. [address] [place] [phone] [facility] 200 [place] [phone] Dysfunction Somatic Thoracic Region (Primary Dx); Dysfunction Somatic Cervical Region; Dysfunction Somatic Lumbar Region; Scoliosis; Pain Myofascial Social History Tobacco Use Types Packs/Day Years [...] re latives? Once a week 01/23/2020 Attends [employer] Not on file 01/22 Active Member [...] care, and heating? Not very hard 01/23/2020 [facility] Occupat ional [facility] - Occupational Stress [...] PM CDT documented as of this encounter Last Filed Vital Signs Vital Sign Reading Time Taken Comments Blood Pressure 128/71 11/10/2023 7:50 AM CDT Pulse 73 11/10/2023 7:50 AM CDT Temperature - - Respiratory Rate - - Oxygen Saturation - - Inhaled Oxygen Concentration - - Weight - - Height - - Body Mass Index - - documented in this encounter Consult Notes * [facility] - 11/10/2023 8:00 AM CDT Images from the original note were not included. SUBJECTIVE HISTORY OF PRESENT ILLNESS Vel is a 78 y.o. male who presents today for primary complaints of right-sided neck and parascapular pain. He describes a history of chronic left-sided neck and parascapular pain that over the lastcouple of years has changed more to the right side. It is aggravated more with movement of the neckthan it is with movement of the arm. Has a fairly progressed thoracolumbar scoliosis that has tightening in the thoracolumbar region as well. Remaining history as provided by the Dey[facility] via electronic tablet is listed below. Adult Neck Pain Red Flags/HPI: Duration of symptoms: Chronic Recent change in symptoms: Yes (worsening of symptoms in the past 6 weeks with closing up a work shop) Does not have arm pain. Recent fall or accident: No Has experienced changes in bowel or bladder function (Has dealt with a recent bout of diarrhea thathe thinks may be related to increased intake of crystal light that is sweetened with aspartame. Elimination of this has gradually improved his bowel function.) and buttocks numbness (2-3 months' duration of right lateral buttock pain that he describes as a fiery burn. There is also some persistent numbness in this region. This typically is provoked with sitting.). Recently had recent weight loss (Unintentional weight loss over the last 6 weeks of about 12 lb. Has been more active and made some dietary changes that may have been contributing to the weight change.). Did not recently have fevers or chills, sickness in the last 30 days or recent surgery. Recent tests include X-ray. X-ray details: [facility] Recent treatments: ice/heat, medications and pain clinic. Response to the ice/heat treatment?: Improved (heat) Response to the medications?: Improved (Topical Voltaren to the right shoulder and parascapular region 1-2 times per day provides several hours of relief.) Response to pain clinic treatment?: No change Adult Low Back Red Flags/HPI: Symptom duration: Chronic Recent change in symptoms: Yes (4-6 month duration of spontaneous onset cold sensation to the left flank. Unable to relate specific movement or position that contributes to pain. Gradually resolves without specific intervention.) Does not have leg pain. Recent fall or accident: No Recently had recent weight loss (Unintentional weight loss over the last 6 weeks of about 12 lb. Has been more active and made some dietary changes that may have been contributing to the weight change.). Did not recently have fevers or chills, sickness in the last 30 days or recent surgery. Has experienced changes in bowel or bladder function (Has dealt with a recent bout of diarrhea thathe thinks may be related to increased intake of crystal light that is sweetened with aspartame. Elimination of this has gradually improved his bowel function.) and buttocks numbness (2-3 months' duration of right lateral buttock pain that he describes as a fiery burn. There is also some persistent numbness in this region. This typically is provoked with sitting.). Recent tests include X-ray. X-ray details: [facility] Recent treatments: pain clinic and physical therapy. Response to pain clinic treatment: No change Response to the physical therapy: Improved (Core stabilization exercises. No longer perfoms these regularly.) MEDICATIONS Current Outpatient Medications: ascorbic acid, vitamin C, (VITAMIN C) 500 mg tablet, Take 1 tablet by mouth 2 (two) times a day., Disp: , Rfl: buPROPion XL (WELLBUTRIN XL) 150 mg 24 hr tablet, Take 150 mg by mouth., Disp: , Rfl: clopidogreL (PLAVIX) 75 mg tablet, Take 75 mg by mouth., Disp: , Rfl: desoximetasone (TOPICORT) 0.25 % ointment, Apply topically., Disp: , Rfl: diclofenac sodium (VOLTAREN) 1 % gel, , Disp: , Rfl: escitalopram (LEXAPRO) 20 mg tablet, Take 1 tablet by mouth daily., Disp: , Rfl: hydroCHLOROthiazide (HYDRODIURIL) 25 mg tablet, , Disp: , Rfl: ketoconazole (NIZORAL) 2 % cream, APPLY A THIN LAYER TO AFFECTED AREA ON THE FOREHEAD 1-2X DAILY ONGOING., Disp: , Rfl: ketoconazole (NIZORAL) 2 % shampoo, WASH AFFECTED AREAS ON FACE AND SCALP 2-3X WEEKLY. LATHER AND LET SIT FOR SEVERAL MINUTES BEFORE RINSING., Disp: , Rfl: methylphenidate HCl (RITALIN) 5 mg tablet, 2 (two) times a day. , Disp: , Rfl: mirtazapine (REMERON) 7.5 mg tablet, Take 7.5 mg by mouth., Disp: , Rfl: miscellaneous medical supply mis, BIPAP machine for home use at pressure: EPAP min/max- 12cm/H2O, PS min/max- 3-15 cm/H2O, I time to 3, BR- 10; Heated humidifier x 1,, Disp: , Rfl: montelukast (SINGULAIR) 10 mg tablet, Take 10 mg by mouth., Disp: , Rfl: multivitamin (THERAGRAN) tablet, Take 1 tablet by mouth daily., Disp: , Rfl: multivitamin tablet, Take 1 tablet by mouth daily., Disp: , Rfl: oxymetazoline (AFRIN) 0.05 % nasal spray, Administer into affected nostril(s)., Disp: , Rfl: pantoprazole (PROTONIX) 40 mg EC tablet, Take 40 mg by mouth., Disp: , Rfl: timolol (TIMOPTIC) 0.25 % ophthalmic solution, , Disp: , Rfl: ALLERGIES Allergies Allergen Reactions Cephalexin Other (see comments), Swelling and Anaphylaxis Difficult breathing Nut - Unspecified Itching Pistachio Shellfish [Clams] GI intolerance Clindamycin Other (see comments) PAST MEDICAL HISTORY No past medical history on file. 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 FAMILY HISTORY No family history on file. SOCIAL HISTORY Social History Tobacco Use Smoking status: Unknown OBJECTIVE PHYSICAL EXAM GENERAL: 78 y.o. male in no acute distress with appropriate affect. SKIN: Inspection of the skin does not reveal any rashes or lesions to the cervical, thoracic, or lumbar regions. CARDIOVASCULAR: No upper or lower extremity edema is noted. MUSCULOSKELETAL EXAM: Diminished cervical and trunk rotation to the right with provocation of right-sided symptoms. He is diminished left side bending with right thoracolumbar symptoms noted. He has severe myofascial restriction along the distribution of the cervicothoracic paraspinal connective tissue, the thoracolumbar paraspinal connective tissue, the proximal and distal aspects of the thoracolumbar fascia, the right dorsal cervicothoracic fascia, the distal levator scapula, and the rhomboidalong the medial scapular border. Soft tissue changes are consistent with distribution of symptom complaint. He does have restricted mobility noted at the cervicothoracic and thoracolumbar junctions in a prone position. NEUROLOGICAL EXAM: Muscle stretch reflexes of the upper and lower extremity are within normal limits. Gait and balance are normal. Pathological reflexes are absent in the upper and lower extremities.Romberg sign is absent. No dysdiadochokinesia is noted. Isolated myotomal testing of the upper and lower extremities does not reveal any deficits. ASSESSMENT / PLAN #1 Pain Neck #2 Scoliosis We discussed initiating a trial of manual therapy and modified manipulation techniques given the scoliotic deformity. Vel does provide verbal consent to proceed with this today. Treatment today consisted of diversified manual manipulation to the cervicothoracic and thoracolumbar junctions. Fascial manipulation was performed to the involved connective tissues as indicated in the physical examination. No complications associated with today's visit. He does report a reduction in pain post treatment. I did provide him with some instruction in general mobilization techniques. We did discuss resuming his home exercise program that he is learned in physical therapy. He does feel comfortable withdoing this and does not have any questions about the exercise routine. I did ask him to bring in his exercises at his follow-up visit so that we could go through and reduce the redundancy that may exist as he found the volume of activity to be cumbersome on a daily basis. He is provided with instruction in use of ice and heat for any residual soreness. Vel is in agreement with this plan. PRO Scores: 03/18/2020 08/29/2023 [facility] PROMIS-CAT: Anxiety 56 (mild) 54 (within normal limits) PROMIS-CAT: Depression 54 (within normal limits) 54 (within normal limits) PROMIS-CAT: Fatigue 55 (within normal limits) 57 (mild) PROMIS-CAT: Sleep disturbance 50 (within normal limits) 48 (within normal limits) PROMIS-CAT: Pain interference 54 (within normal limits) 65 (moderate) PROMIS-CAT: Ability to participate social roles 58 (within normal limits) 39 (moderate dysfunction) PROMIS-CAT: Physical function 38 (moderate dysfunction) 39 (moderate dysfunction) PROMIS SHORT FORM (Pain Intensity): Pain rating (avg.) 4 documented in this encounter Plan of Treatment Upcoming Encounters Date Type Department Care Team (Late st Contact Info) Description 12/08/2023 9:00 AM CDT Office Visit Department of Spine in [place], [place] [address] [place] [phone] [facility] [address] [place] [phone] 01/06/2024 7:30 AM CDT Office Visit Department of Spine in [place], [place] [address] [place] [phone] [facility] 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
--- OUTSIDE RECORDS SUMMARY | 2023-11-29 10:11 | XMS_ITS | Encounter Summary ---
Author Organization [facility] Address [address] [place] [address] Care Team Providers Care Platen Press Operator Name Role Phone Unavailable Primary Care Provider Unavailabl e Reason for Referral * Outpatient (Routine) - Authorized Specialty Diagnoses / Procedures Referred By Contac t Referred To Contact [facility] [address] [place] [address] [phone] [facility] Referral ID Status Reason Start Date Expiration Date V isits Requested Visits Authorized [id number] Authorized 11/24/2023 05/25/2025 1 1 Reason for Visit * Outpatient (Routine) - Authorized Specialty Diagnoses / Procedures Referred By Contac t Referred To Contact [facility] [address] [place] [address] [phone] [facility] Referral ID Status Reason Start Date Expiration Date V isits Requested Visits Authorized [id number] Authorized 11/10/2023 05/11/2025 2 2 Encounter Details Date Type Department Care Team (Late st Contact Info) Description 11/24/2023 9:00 AM CDT Office Visit Department of Spine in [place], [place] [address] [place] [phone] [facility] [address] [place] [phone] Dysfunction Somatic Cervical Region (Primary Dx); Dysfunction Somatic Thoracic Region; Dysfunction Somatic Lumbar Region; Scoliosis; Pain Myofascial Social History Tobacco Use Types Packs/Day Years Used Date Smoking Tobacco: Former Cigarettes Q uit: 10/23/1975 Smokeless Tobacco: Never Alcohol Use Standard Drinks/Week Comments Yes 3 [...] care, and heating? Not very hard 01/23/2020 [facility] [place] [facility] Occupat ional Health - Occupational Stress [...] PM CDT documented as of this encounter Progress Notes * [facility] - 11/24/2023 9:00 AM CDT SUBJECTIVE HISTORY OF PRESENT ILLNESS Vel is a 78 y.o. male who presents today for recheck of neck and back pain. He reports improvement following his initial visit. He continues to have some tightness in the neck and mid back extending to the upper lumbar region on the right. He denies any residual soreness following his initial visit. He does feel as if his mobility has improved. OBJECTIVE PHYSICAL EXAM GENERAL: 78 y.o. male in no acute distress. MUSCULOSKELETAL EXAM: Cervical left rotation and left lateral flexion are provocative of right neckpain. Trunk rotation to the left is provocative right lower thoracic symptoms. Myofascial restriction right upper trapezius, right distal levator scapula, right latissimus dorsi at the ninth and tenth intercostal space, and the right serratus posterior. Soft tissue changes are consistent with reproduction of symptoms. Joint restriction is noted at the right cervicothoracic junction and the thoracolumbar junction. NEUROLOGICAL EXAM: Gross neurological function is normal in the extremities. Observation of gait and balance is within normal limits. ASSESSMENT / PLAN #1 Dysfunction Somatic Cervical Region #2 Dysfunction Somatic Thoracic Region #3 Dysfunction Somatic Lumbar Region #4 Scoliosis #5 Pain Myofascial Treatment today consisted of diversified manual manipulation to the cervicothoracic and thoracolumbar junctions. Fascial manipulation was performed to the involved connective tissues as indicated in the physical examination. No complications noted with today's visit. He reports a reduction in pain and stiffness. We did review some of the exercises that were provided by Physical therapy. I would like him to do the flexibility exercises, the pelvic tilt exercise, and the step-ups 3-4 days per week. He will continue with walking for general activity and exercise. Recommended chiropractic recheckin 2 weeks. documented in this encounter Plan of Treatment Upcoming Encounters Date Type Department Care Team (Late st Contact Info) Description 12/08/2023 9:00 AM CDT Office Visit Department of Spine in [place], [place] [address] [place] [phone] [facility] [address] [place] [phone] 01/06/2024 7:30 AM CDT Office Visit Department of Spine in [place], [place] [address] [place] [phone] [facility] [address] [place] [phone] Scheduled Referrals Name Type Priority Associated Diagnoses Orde r Schedule Spine office visit (clinic) Outpatient Referral Routine Expected: 12/15/2023 (Approximate), Expires: 2025 documented as of this encounter Visit Diagnoses Diagnosis Dysfunction Somatic Cervical Region- Primary Dysfunction Somatic Thoracic Region Dysfunction Somatic Lumbar Region Scoliosis Pain Myofascial documented in this encounter Additional Health Concerns Assessment Noted Time PHQ-9 Depression Total Score: 1 04/16/20 15 8:53 AM CHECKROOM CHIEF documented as of this encounter
--- OUTSIDE RECORDS SUMMARY | 2023-11-29 10:11 | XMS_ITS | Clinical Summary ---
Author Organization [facility] Address [place], [place] [address] Care Team Providers Care Plant Maintenance Manager Name Role Phone India Jacques MD Unavailable [phone] India Jacques MD Primary Care Provider [phone] Allergies Active Allergy Reactions Criticality Noted Date Comments Cephalexin Laryngospasm,Throat Swelling/Closing High 03/15/2014 Difficult breathing Nut - Unspecified Itching 06/22/2014 Pistachio Shellfish Derived Nausea Only,Throat Swelling/Closing High 07/08/2016 Medications Medication Sig Dispensed Refills Start Date End Date Status pantoprazole (PROTONIX) 40 mg delayed-release tablet Take 1 tablet by mouth once daily. 0 02/01/2014 Active clopidogrel (PLAVIX) 75 mg tablet Take 1 tablet by mouth once daily. 0 02/01/2014 Active buPROPion (WELLBUTRIN XL) 150 mg Extended-Release tablet Take 1 tablet by mouth every morning. 0 02/01/2014 Active VOLTAREN gel 02/27/2015 Active desoximetasone 0.25% topical (TOPICORT) 0.25 % ointment Apply topically to affected area(s) 2 times daily. Active escitalopram oxalate (LEXAPRO) 10 mg tablet Take 20 mg by mouth every morning. 0 01/10/2018 Active timolol maleate (TIMOPTIC) 0.25 % ophthalmic solution Place 1 Drop into both eyes once daily. 11/17/2017 Active hydroCHLOROthiazide (HCTZ) 25 mg tablet Take 25 mg by mouth once daily. 11/23/2017 Active oxymetazoline (AFRIN, OXYMETAZOLINE,) 0.05 % nasal spray Inhale in the nostril(s) 2 times daily if needed for Nasal Congestion. 0 02/28/2018 Active multivitamin (MVI) tablet Take 1 tablet by mouth once daily. 0 02/28/2018 Active rx prochlorperazine (COMPAZINE) 5 mg tablet (ED DC MED) Take 5 mg by mouth every 6 hours if needed. Active albuterol sulfate 90 mcg/actuation aebs Inhale 2 Puffs by mouth every 4 hours if needed. Active rosuvastatin (CRESTOR) 20 mg tabletIndications:Dysl ipidemia,ASHD (arteriosclerotic heart disease) Take 1 Tablet (20 mg) by mouth at bedtime. 30 Tablet 2 10/15/2020 Active mirtazapine (REMERON) 7.5 mg tabletIndications:Inso mnia, unspecified type Take 1 Tablet (7.5 mg) by mouth at bedtime. 30 Tablet 3 05/12/2022 Active BiPapIndications:Compl ex sleep apnea syndrome bPAP auto ASV machine for home use at pressure: epap 5-13 max pressure 22 max PS 8 min PS 0, rise time 3 BR 10, timed inspiration 1.5, Heated humidifier x 1 q 5 yr, Humidifier chamber x 1 q 6 mo, Full face mask x1 q 3mos, with cushion x 1 q mo, Heated tubing x 1 q 3 mo, Headgear x 1 q 3 mo, Filters: Disposable x 2 q mo non-disposable filters x1 q 6mo, Length of Need: 99 months, Frequency of use: Daily 1 Each 11 08/03/2023 Active Active Problems Problem Noted Date Diagnosed Date Abnormal stress echo 10/15/2020 ASHD (arteriosclerotic heart disease) 10/15/2020 Overview: Coronary angiogram 10/15/20: 30% stenosis in mLAD Treatment-emergent central sleep apnea 9 Complex sleep apnea syndrome 06/20/2018 Revision to Hemiarthroplasty , removal of total shoulder, impaction bone grafting, glenoid bone defect and humeral medial calcar defect on 07/08/16 by Vicente Taylor MD. 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 HTN (hypertension) 02/01/2014 Depression with anxiety 02/01/2014 GERD (gastroesophageal reflux disease) 4 LESLIE 11/21/2013 AHI-28, with tx increased centrals 02/01/2014 Erectile dysfunction Mechanical complication of g raft of bone, cartilage, muscle or tendon Primary osteoarthritis of left shoulder Resolved Problems Problem Noted Date Diagnosed Date Resolved Date OA (osteoarthritis) 02/01/2014 03/15/20 14 Erectile dysfunction 018 Erectile dysfunction 018 Immunizations Name Administration Dates Next Due Influenza, IIV4 05/08/2016 Tdap 03/13/2014 Social History Tobacco Use Types Packs/Day Years Used Date Smoking Tobacco: Former Cigarettes Q uit: 05/24/1972 Smokeless Tobacco: Never Tobacco Cessation:Counseling Given: Yes Alcohol Use Standard Drinks/Week Comments Yes 3 (1 standard drink = 0.6 oz pur e alcohol) PHQ-2 Answer Date Recorded PHQ-2 Score 0 07/24/2018 Social Connections Answer Date Recorded Frequency of Communication with Friends and Fami ly Not on file 05/24/2021 Financial Resource Strain Answer Date R ecorded Difficulty of Paying Living Expenses Not on file 05/24/2021 Difficulty of Paying Living Expenses Not on file 05/24/2021 Sex and Gender Information Value Date Recorded Sex Assigned at Not on file Gender Identity Not on file Sexual Orientation Not on file Obstetrics History Last Filed Vital Signs Vital Sign Reading Time Taken Comments Blood Pressure 118/74 11/26/2020 9:01 AM CDT Pulse 63 11/26/2020 9:01 AM CDT Temperature 35.8 ??C (96.5 ??F) 10/15/2020 4:47 PM CD T Respiratory Rate 16 10/15/2020 4:47 PM CDT Oxygen Saturation 97% 11/26/2020 9:01 AM CDT Inhaled Oxygen Concentration - - Weight 88 kg (193 lb 14.4 oz) 11/26/2020 9:01 AM CDT Height 170.2 cm (5' 7) 10/15/2020 10:50 AM CDT Body Mass Index 30.37 10/15/2020 10:50 AM CDT Plan of Treatment Health Maintenance Due Date Last Done Comments BMI (ht and wt on same day) for age 18+ 1961 Zoster (shingles) series for age 50+ (1 of 2) 1993 Medicare Wellness for age 65+ 02/24/2008 Pneumococcal series for age 65+ (1 of 1 - PCV) 02/24/2008 Depression screening for age 12+ 01/10/2019 01/11/20 18 COVID-19 vaccine series ( season) 2023 02/17/2023, 04/08/2022, 10/29/2021, Additional history exists Influenza for age 65+ 01/23/2024 05/08/2016 Tetanus booster 03/13/2024 03/13/2014 Tdap Completed 03/13/2014 Medical Devices Implanted Type Area Exhibit Display Representative Device Identifier Shelf Expiration Date Model / Serial / Lot [id number] 30cc Mtf Chips Canclls Pouch [[id number]] Implanted:Qty: 1 on 07/08/2016 by Vicente Taylor MD at [facility] Explanted:at [facility] (Quantity not on file) Left: Shoulder Musculoskeletal Transplant 07/01/2018 [id number]# / [id number] / [id number] one Matrix 5cc [place] Putty Dbm Implanted:Qty: 1 on 07/08/2016 by Vicente Taylor MD at [facility] Explanted:at [facility] (Quantity not on file) Left: Shoulder Medtronic Spine/Ortho 01/09/2019 [id number]# / [id number] / [id number] one Matrix 1cc Torsten Plus Paste Dbm Implanted:Qty: 1 on 07/08/2016 by Vicente Taylor MD at [facility] Explanted:at [facility] (Quantity not on file) Left: Shoulder Medtronic Spine/Ortho 03/11/2018 [id number]# / [id number] / [id number] one Matrix 10cc Torsten Puttydbm Implanted:Qty: 1 on 07/08/2016 by Vicente Taylor MD at [facility] Explanted:at [facility] (Quantity not on file) Left: Shoulder Medtronic Spine/Ortho 02/17/2019 [id number]# / [id number] / Stem Hum [id number] Comprehensive Rev - [id number] Implanted:Qty: 1 on 07/08/2016 by Vicente Taylor MD at [facility] Left: Shoulder [employer] [id number]# / / [id number] Head Hum [id number] Versa Dialco Cr - [id number] Implanted:Qty: 1 on 07/08/2016 by Vicente Taylor MD at [facility] Left: Shoulder [employer] [id number]# / / [id number] Adptr Shldr Versa-Dial Tape Red - [id number] Implanted:Qty: 1 on 07/08/2016 by Vicente Taylor MD at [facility] Left: Shoulder [employer] [id number]# / / [id number] Explanted Type Area Exhibit Display Representative Device Identifier Shelf Expiration Date Model / Serial / Lot Guidewire Ball Tip - [id number] Explanted:Qty: 1 on 07/08/2016 at [facility] Left: Shoulder [employer] [id number]# / / Advance Directives * Full Code (Latest Code Status on File) Date Activated Date Inactivated Comments 10/15/2020 11:34 AM 10/15/2020 7:20 PM Question Answer Comments Code Status Discussion: Discussed * Full Code Date Activated Date Inactivated Comments 10/15/2020 11:07 AM 10/15/2020 11:34 AM Will confi rm with patient Question Answer Comments Code Status Discussion: Other (specify in commen ts): * Full Code Date Activated Date Inactivated Comments 07/08/2016 8:28 PM 07/09/2016 3:59 PM * Full Code Date Activated Date Inactivated Comments 07/08/2016 11:58 AM 07/08/2016 8:28 PM Care Teams Plant Maintenance Manager Relationship Specialty Start Date End Date India Jacques MD [address] [place] [address] PCP - General Internal Medicine 08/29/20 India Jacques MD [address] [place] [address] Internal Medicine 10/19/13
--- OUTSIDE RECORDS SUMMARY | 2023-11-29 10:11 | XMS_ITS | Referral Summary ---
Author Organization [facility] Address [address] [place] [address] Care Team Providers Care Termite Control Service Representative Name Role Phone Unavailable Primary Care Provider Unavailabl e Source Comments Patient records contain information from all sites at [facility]. For routine questions regarding patient records, call [phone] during business hours, M-F 8:00 AM - 5:00 PM Central Time. Record requests for emergency care only can be directed to [phone] at any time.[facility] Encounters Date Type Department Care Team Description 11/24/2023 9:00 AM CDT Office Visit Department of Spine in [place], [place] [address] [place] [phone] Hu Mon D.C. Dysfunction Somatic Cervical Region (Primary Dx); Dysfunction Somatic Thoracic Region; Dysfunction Somatic Lumbar Region; Scoliosis; Pain Myofascial 11/10/2023 8:00 AM CDT Comprehensive Visit Department of Spine in [place], [place] [address] [place] [phone] Regulo Tello APRN, C.N.PHu Trinh D.C. Dysfunction Somatic Thoracic Region (Primary Dx); Dysfunction Somatic Cervical Region; Dysfunction Somatic Lumbar Region; Scoliosis; Pain Myofascial 08/30/2023 9:55 AM CDT - 08/30/2023 11:59 PM CDT Hospital Encounter Department of Radiology, [facility], in [place], [place] [address] [place] [phone] Regulo Telol APRN, C.N.P. Scoliosis Discharge Disposition: Home or Self Care 08/30/2023 8:00 AM CDT Comprehensive Visit Department of Spine in [place], [place] [address] [place] [address] Regulo Tello APRN, C.N.PIndia Scoliosis (Primary Dx); Other Forms Of Scoliosis Lumbar Region; Pain Neck 08/30/2023 6:16 AM CDT - 08/30/2023 9:54 AM CDT Hospital Encounter Department of Radiology, [facility] in [place], [place] [address] [place] [address] Dionisio Carreon M.D. 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 Once a week 01/23/2020 Attends Holiness Services Not on file 01/22 Active Member of Clubs or Organizations Not on f ile 01/23/2020 Attends Club or Organization Meetings Not on shanta e 01/23/2020 Marital Status Not on file 01/23/2020 AUDIT-C Answer Date Recorded Frequency of Alcohol Consumption 2-4 times a mon 01/23/2020 Average Number of Drinks 1 or 2 020 Frequency of Binge Drinking Never 05/2019 Overall Financial Resource Strain (CARDIA) Answe r Date Recorded How hard is it for you to pa y for the very basics like food, housing, medical care, and heating? Not very hard 01/23/2020 [facility] of Occupat ional Health - Occupational Stress [...] - Respiratory Rate 14 07/11/2014 1:05 PM TRAFFIC RECORDER Vital sign result from Clinical Notes. Oxygen Saturation - - Inhaled Oxygen Concentration - - Weight 86.4 kg (190 lb 7.6 oz) 06/08/2023 3:13 PM TRAFFIC RECORDER Height 169.2 cm (5' 6.61) 06/08/2023 3 :13 PM TRAFFIC RECORDER Body Mass Index 30.18 06/08/2023 3:13 PM TRAFFIC RECORDER Plan of Treatment Upcoming Encounters Date Type Department Care Team (Late st Contact Info) Description 12/08/2023 9:00 AM CDT Office Visit Department of Spine in [place], [place] [address] [place] [address] Hu Mon D.CIndia [address] [place] [phone] 01/06/2024 7:30 AM CDT Office Visit Department of Spine in [place], [place] [address] [place] [address] Hu Mon D.C. [address] [place] [phone] Medical Devices Implanted Type Area Rockboard Lather Device Identifier Shelf Expiration Date Model / [...] Back SODIUM, S/P Routine 06/08/2023 6:53 AM TRAFFIC RECORDER Vascular Agustina Danlos Syndrome (HCC) POTASSIUM, S/P Routine 06/08/2023 6:53 AM TRAFFIC RECORDER Vascular Agustina Danlos Syndrome (HCC) CREATININE WITH EGFR, S/P Routine 06/08/2023 6:53 AM TRAFFIC RECORDER Vascular Agustina Danlos Syndrome (HCC) from Last [...] the SI joints and left hip. Cholecystectomy. Adela Baird APRNNTeodoro IMG DIAGNOSTI C IMAGING PROCEDURES * DX [...] AGING PROCEDURES * Sodium (06/08/2023 6:53 AM TRAFFIC RECORDER) Sodium, S 141 135 - 145 mmol/L 06/08/2023 7:55 AM TRAFFIC RECORDER DT Blood (Blood, Venous) 06/08/2023 6:53 AM TRAFFIC RECORDER 06/08/2023 7:36 AM TRAFFIC RECORDER Dionisio Carreon M.D. LAB BLOOD ADD-ON Performing Organization Address City/[facility]/ZIP Co de Phone Number [facility] [address] [place] [address], [facility] [address] [place] [address] * Potassium (06/08/2023 6:53 AM TRAFFIC RECORDER) Potassium, S 3.9 3.6 - 5.2 mmol/L 06/08/2023 7:55 AM TRAFFIC RECORDER DTL Blood (Blood, Venous) 06/08/2023 6:53 AM TRAFFIC RECORDER 06/08/2023 7:36 AM TRAFFIC RECORDER Dionisio Carreon M.D. LAB BLOOD ADD-ON Performing Organization Address City/[facility]/ZIP Co de Phone Number [facility] [address] [facility] [address] [place] [address] * Creatinine with Estimated GFR (06/08/2023 6:53 AM TRAFFIC RECORDER) Creatinine 0.84 0.74 - 1.35 mg/dL 06/08/2023 7:55 AM TRAFFIC RECORDER DTL Estimated GFR (eGFR) 88 >=60 mL/min/BSA 06/08/2023 7:55 AM TRAFFIC RECORDER DTL Comment: Estimated GFR calculated using the 2020 CKD_EPI creatinine equation. Blood (Blood, Venous) 06/08/2023 6:53 AM TRAFFIC RECORDER 06/08/2023 7:36 AM TRAFFIC RECORDER Dionisio Carreon M.D. LAB BLOOD ADD-ON [facility] [address] [place] [address], [facility] [address] [place] [address] from Last 3 Months or Most Recently Relevant to Health Maintenance
--- OUTSIDE RECORDS SUMMARY | 2023-11-29 10:11 | XMS_ITS | Encounter Summary ---
Author Organization [facility] Address [address] [place] [address] Care Team Providers Care Engineering Manager Name Role Phone Unavailable Primary Care Provider Unavailabl e Reason for Referral * Outpatient (Routine) - Closed Specialty Diagnoses / Procedures Referred By Contac t Referred To Contact Diagnoses Other Forms Of Scoliosis Lumbar Region Pain Neck Procedures DX Cervical Spine 2-3 Views Dionisio Carreon M.D. [address] [place] [address] [facility] Referral ID Status Reason Start Date Expiration Date Visits Re quested Visits Authorized [id number] Closed 06/08/2023 06/07/2024 1 1 * Outpatient (Routine) - Closed Specialty Diagnoses / Procedures Referred By Contac t Referred To Contact Diagnoses Other Forms Of Scoliosis Lumbar Region Pain Back Procedures DX Lumbar Spine 2-3 Views Dionisio Carreon M.D. [address] [place] [address] [facility] Referral ID Status Reason Start Date Expiration Date Visits Re quested Visits Authorized [id number] Closed 06/08/2023 06/07/2024 1 1 Reason for Visit * Outpatient (Routine) - Closed Specialty Diagnoses / Procedures Referred By Contac t Referred To Contact Diagnoses Other Forms Of Scoliosis Lumbar Region Pain Neck Procedures DX Cervical Spine 2-3 Views Dionisio Carreon M.D. [address] [place] [address] [facility] Referral ID Status Reason Start Date Expiration Date Visits Re quested Visits Authorized [id number] Closed 06/08/2023 06/07/2024 1 1 Encounter Details Date Type Department Care Team (Latest Contact Info) Description 08/30/2023 6:16 AM CDT - 08/30/2023 9:54 AM CDT Hospital Encounter Department of Radiology, [facility], in [place], [place] [address] [place] [phone] Dionisio Carreon M.D. [address] [place] [phone] Other Forms Of Scoliosis Lumbar Region; Pain Back; Pain Neck Discharge Disposition: Home or Self Care Social [...] re latives? Once a week 01/23/2020 Attends [employer] Services Not on file 01/22 Active Member [...] care, and heating? Not very hard 01/23/2020 [facility] of Occupat ional Health - Occupational Stress [...] mg by mouth. 10/20/2018 miscellaneous medical supply [facility] [place] [place] BIPAP machine for home [...] CDT Office Visit Department of Spine in [place], [place] [address] [place] [phone] [facility]. [address] [place] [phone] 01/06/2024 7:30 AM CDT Office Visit Department of Spine in [place], [place] [address] [place] [phone] [facility] D.C. [address] [place] [phone] (work) documented as of this encounter Procedures Procedure Name Priority Date/Time Associated Diagnosis Comments DX LUMBAR SPINE 2-3 VIEWS RAD - Routine (most inpatients and all outpatients) 08/30/2023 7:23 AM CDT Other Forms Of Scoliosis Lumbar Region Pain Back DX CERVICAL SPINE 2-3 VIEWS RAD - Routine (most inpatients and all outpatients) 08/30/2023 7:23 AM CDT Other Forms Of Scoliosis Lumbar Region Pain Neck documented in this encounter Results * DX Cervical Spine 2-3 Views (08/30/2023 [...] on C5. Posteriorsubluxation C3 on C4. Dionisio WILKINSONG DIAGNOSTIC IM AGING PROCEDURES * DX Lumbar Spine 2-3 Views [...] Carreon M.D. IMG DIAGNOSTIC IM AGING PROCEDURES documented in this encounter Visit Diagnoses Diagnosis Other Forms Of Scoliosis Lumbar Region Pain Back Pain Neck documented in this encounter Additional Health Concerns Assessment Noted Time PHQ-9 Depression Total Score: 1 04/16/20 15 8:53 AM COMMERCIAL ESCROW ASSISTANT documented as of this encounter
[2023-11-29] MEDS: BUPIVACAINE 0.5 % 10 ML VIAL INJECTION (10:25)
--- NOTE | 2023-11-29 10:45 | P.ORPRC_ITS ---
Procedure Note Date of procedure: 11/29/23 Procedure: PREOPERATIVE DIAGNOSIS: 1. Left palmar hand deep abscess POSTOPERATIVE DIAGNOSIS: 1. Left palmar hand deep abscess PROCEDURE: 1. Left palmar hand deep abscess incision and drainage 2. Left palm excisional debridement of skin and subcutaneous tissue. SURGEON: Alec Delacruz MD. VICE PRESIDENT OF ACADEMIC AFFAIRS: Catarino Lopez PA-C ANESTHESIA: Local anesthetic 16 mL via 50:50 mixture of 1% Lidocaine with epi and 0.5% marcaine plain EBL: 10 mL IMPLANTS: None TOURNIQUET: None COMPLICATIONS: None evident INDICATIONS: The patient is a pleasant 78-year-old male who got a sliver on the palmar aspect of left hand overlying 3rd MCP joint approximately 10 days ago. This eventually became red and swollen and a small abscess developed. It spontaneously ruptured and he noted the sliver came out. However, the redness and swelling and pain persisted/worsened in the coming days. He presented to urgent care where he was placed on oral Bactrim. Unfortunately, things continue to progress. He presented [place] ED today (11/29/2023). Orthopedics was consulted and indeed felt that surgical debridement would be prudent along with admission for IV antibiotics. DESCRIPTION OF PROCEDURE: Following a thorough discussion of risks, benefits, and alternatives consent was obtained and the operative digit(s) was marked. The patient was brought to the operating room and placed supine on the operating table. Local anesthesia induction was undertaken in preop holding. No antibiotics until cultures could be obtained. Proper time-out was performed identifying proper patient, site, and procedure. The operative extremity was prepped and draped in the appropriate sterile fashion using ChloraPrep. A longitudinal incision was made overlying the 3rd MCP joint region of the left hand. Sharp incision through skin and blunt dissection through subcutaneous tissue allowed identification of the flexor tendon and its sheath. Upon entry into the space, purulence was encountered. A culture swab was utilized to obtain sample of the bacteria. After incising this deep abscess and evacuated majority of the purulence, thorough irrigation normal saline was performed. We also were able to milk down the digit as well as up the palm to express any other purulence that may be in the flexor sheath. A hemostat was utilized to mobilize tissue both proximally and distally and only a small amount of purulence was encountered on either side. The flexor tendon A1 judah was released and tendon found to have significant striations consistent with the infectious surrounding and subsequent inflammation and irritation. The skin and subcutaneous tissue was excised with a 15 blade in the local region as that was mostly scab and of poor quality. Again a thorough irrigation normal saline was performed. A total of 1 L normal saline was utilized in this small incisional space. Closure was performed with 4-O nylon in interrupted fashion. Soft dressings were applied, and the patient was transferred to the recovery room in stable condition. PLAN: 1. Encourage elevation of the operative extremity. 2. Range of motion and icing of the fingers and hand/wrist as tolerated/needed. 3. Ibuprofen/acetaminophen and/or oxycodone as needed for pain control. 4. Per the emergency department physician, recommendation was made for admission to the hospital for IV antibiotics. I would anticipate the patient will be discharged when medically stable and can switch to oral antibiotics. This may take 1-2 days for cultures to return with results. 5. Follow up with PA visit in 12-16 days for wound check and suture removal.
[2023-11-29] MEDS: OXYCODONE 5 MG TABLET 2.5 MG PO (12:00)
--- NOTE | 2023-11-29 12:20 | SUR.PHASEII ---
Pt tolerated tea and toast. Denies pain, states he feels it more but not painful. He requested a pain medication before the numbness wore off. Report given to Minna GAFFNEY on Med/surg. Pt transferred to med/surg via wheelchair.
[2023-11-29] MEDS: LACTATED RINGERS 1000 ML 1,000 ML 75 ML IV (14:44)
[2023-11-29] MEDS: POTASSIUM BICARB 25 MEQ EFFERVESCENT TAB 50 MEQ PO (15:28)
[2023-11-29] MEDS: PIPERACILLIN/TAZOBACTAM 3.375 GM in 0.9 % SODIUM CHLORIDE Mini-bag 100 ML IVPB ×2 (15:28→21:15)
--- NOTE | 2023-11-29 16:28 | P.IMHP_ITS ---
Hospitalist- H&P: HPI History of Present Illness Date Seen: 11/29/23 Chief complaint: LT hand skin abscess Narrative: Vel Durbin is a 78 year old male admitted to the hospital with his left hand infection. About 12 days ago he got a sliver in his left hand. He developed an infection over the palmar surface of the 3rd MCP. Abscess formed and then spontaneously drained and he sought piece of sliver come out when that occurred. Infection continued to get worse and so he was seen in urgent care 2 days ago were started on Bactrim. Despite being on Bactrim for the last 2 days his infection is gotten worse and he is having pain and redness going up his forearm. He reports a low-grade fever less than 100 F at home. No other symptoms of illness. He return to the emergency room today for evaluation treatment. He was seen by Orthopedic surgery and taken to the OR for I&D of a deep abscess of the palmar hand. Last tetanus shot he believes was in the last few years. Last documentation that I have is a Tdap in February 2014. He reports he has been feeling well other than this hand infection. Review of Systems Narrative: No other illness or injury recently. [facility] Medical History (Updated 11/29/23 @ 20:22 by Juan M Braga MD) Ulnar neuropathy at elbow of left upper extremity ?G56.22 - Lesion of ulnar nerve, left upper limb (ICD-10) Anxiety (05/06/11) ?F41.9 - Anxiety disorder, unspecified (ICD-10) Actinic keratitis ?H16.139 - Photokeratitis, unspecified eye (ICD-10) Chronic fatigue and malaise ?R53.82 - Chronic fatigue, unspecified (ICD-10) ?R53.81 - Other malaise (ICD-10) Attention deficit disorder (2016) ?F98.8 - Other specified behavioral and emotional disorders with onset usually occurring in childhood and adolescence (ICD-10) Chronic nausea ?R11.0 - Nausea (ICD-10) Coronary artery disease ?I25.10 - Atherosclerotic heart disease of [place] coronary artery without angina pectoris (ICD-10) 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 ?M24.152 - Other articular cartilage disorders, left hip (ICD-10) 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) ?Q79.60 - Agustina-Danlos syndrome, unspecified (ICD-10) Glaucoma ?H40.9 - Unspecified glaucoma (ICD-10) Erectile dysfunction (05/06/11) ?N52.9 - Male erectile dysfunction, unspecified (ICD-10) Obstructive sleep apnea syndrome ?G47.33 - Obstructive sleep apnea (adult) (pediatric) (ICD-10) Major depressive disorder ?F32.9 - Major depressive disorder, single episode, unspecified (ICD-10) Essential hypertension ?I10 - Essential (primary) hypertension (ICD-10) Obesity with body mass index 30 or greater ?E66.9 - Obesity, unspecified (ICD-10) Chronic insomnia ?F51.04 - Psychophysiologic insomnia (ICD-10) PVC (premature ventricular contraction) ?I49.3 - Ventricular premature depolarization (ICD-10) Left carpal tunnel syndrome ?G56.02 - Carpal tunnel syndrome, left upper limb (ICD-10) Right carpal tunnel syndrome ?G56.01 - Carpal tunnel syndrome, right upper limb (ICD-10) Cubital tunnel syndrome on left ?G56.22 - Lesion of ulnar nerve, left upper limb (ICD-10) History of alcohol use disorder ?Z87.898 - Personal history of other specified conditions (ICD-10) History of opioid abuse ?F11.11 - Opioid abuse, in remission (ICD-10) Statin intolerance ?Z78.9 - Other specified health status (ICD-10) History of arterial dissection ?Z86.79 - Personal history of other diseases of the circulatory system (ICD- 10) History of pancreatitis ?Z87.19 - Personal history of other diseases of the digestive system (ICD-10) Surgical History 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) ?Z96.659 - Presence of unspecified artificial knee joint (ICD-10) Status post total shoulder replacement (2016) ?Z96.619 - Presence of unspecified artificial shoulder joint (ICD-10) 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 He is a former smoker having quit in 1972. Occasional alcohol use. THC use as well. What is your current living situation?: I presently have a place to live Problems where you live: no known problems Problems where you live details: NA In the past 12 months, utilities in danger of being shut off: no In past 12 months, lack of transportation kept you from medical appts, meetings, work, or getting things needed for daily living: yes In the past 12 mos, have been you worried that your food would run out before you had money to buy more?: never true In the past 12 mos, the food you bought just didn't last and you didn't have money to buy more?: never true Highest level of school completed/degree received: Master's degree Smoking Status: Former smoker What tobacco products do you use: cigarettes Years smoked: 8 Smoking quit date/years: >15 years ago Do you use any of these nicotine containing products: None Second hand tobacco smoke exposure: No How often do you have a drink containing alcohol: monthly or less Alcohol type: wine and hard liquor How many standard drinks containing alcohol do you have on a typical day: 1 or 2 How often do you have six or more drinks on one occasion: Never AUDIT-C Alcohol total score: 1 Non-prescribed substance use: marijuana (any form) Non-prescribed substance use details: THC Gummies Caffeine: Yes (coffee and tea) How often does anyone, including family, friends and others, physically hurt you : never How often does anyone, including family, friends and others, insult or talk down to you: rarely How often does anyone, including family, friends and others, threaten you with harm: never How often does anyone, including family, friends and others, scream or curse at you: never Little interest or pleasure in doing things: several days Feeling down, depressed, or hopeless: several days service: No Meds Home Medications and Allergies Home Medications ?Medication ?Instructions ?Recorded ?Confirmed ?Type desoximetasone 0.25 % topical cream 1 applic topical BID PRN 02/05/22 11/29/23 History diclofenac sodium 1 % topical gel 2 g topical BID PRN 02/05/22 11/29/23 History multivitamin (Multiple Vitamins 1 tab PO QAM 02/05/22 11/29/23 History tablet) timolol maleate 0.25 % eye drops 1 drp ophthalmic (eye) QAM 02/05/22 11/29/23 History albuterol sulfate 90 mcg/actuation 2 inh inhalation Q4H PRN 10/05/22 11/29/23 History aerosol inhaler fluorouracil 5 % topical cream 1 applic topical Q7D 10/05/22 11/29/23 History escitalopram oxalate 20 mg tablet 20 mg PO DAILY 11/29/23 11/29/23 History Allergies Allergy/AdvReac Type Severity Reaction Status Date / Time cephalexin Allergy Severe Swelling Verified 11/29/23 09:01 of Lip/Tongue/Throat clindamycin Allergy Mild Rash Verified 11/29/23 09:01 Exam Narrative: Exam Narrative: He is alert and appears in no distress. Gives his own history. Oropharynx is normal. Neck is supple without mass or adenopathy. Respirations are clear to auscultation. Cardiovascular: S1, S2, regular rate and rhythm. No murmur gallop or rub. Abdomen: Bowel sounds active. Abdomen is soft without tenderness or mass. Left upper extremity is examined. He has a bandage over his left wrist and hand. He still has some numbness in his fingertips secondary to recent anesthesia and surgery. Good capillary refill in his fingertips. He can wiggle his fingers. Proximal to his wrist and hand bandage his left upper extremity is normal except for mild erythema streaking up lateral aspect of the forearm to the elbow. No epitrochlear or axillary lymphadenopathy. Lower extremities without significant edema. Const: Vital Signs, click to edit/add: Vital Signs - 24 hr 11/29/23 08:56 11/29/23 10:09 11/29/23 10:10 Temperature 99.1 F Pulse Rate 60 61 Pulse Rate [Left P ulse Oximeter] Pulse Rate [Pulse Oximeter] 66 Respiratory Rate 14 18 18 Blood Pressure 113/71 116/71 Blood Pressure [Ri ght Arm] Blood Pressure [Ri ght Upper Arm] 119/73 Pulse Oximetry 96 97 98 Oxygen Delivery Me thod Room Air 11/29/23 10:15 11/29/23 10:20 11/29/23 10:25 Temperature Pulse Rate 60 59 L 59 L Pulse Rate [Left P ulse Oximeter] Pulse Rate [Pulse Oximeter] Respiratory Rate 18 16 14 Blood Pressure 117/72 119/73 110/68 Blood Pressure [Ri ght Arm] Blood Pressure [Ri ght Upper Arm] Pulse Oximetry 97 97 97 Oxygen Delivery Me thod Room Air Room Air Room Air 11/29/23 10:30 11/29/23 10:35 11/29/23 10:40 Temperature Pulse Rate 59 L 59 L 58 L Pulse Rate [Left P ulse Oximeter] Pulse Rate [Pulse Oximeter] Respiratory Rate 16 16 16 Blood Pressure 111/70 105/65 113/73 Blood Pressure [Ri ght Arm] Blood Pressure [Ri ght Upper Arm] Pulse Oximetry 97 98 96 Oxygen Delivery Me thod Room Air Room Air Room Air 11/29/23 10:45 11/29/23 10:50 11/29/23 11:00 Temperature 98.8 F Pulse Rate 59 L 59 L 70 Pulse Rate [Left P ulse Oximeter] Pulse Rate [Pulse Oximeter] Respiratory Rate 16 16 16 Blood Pressure 114/69 115/72 117/93 H Blood Pressure [Ri ght Arm] Blood Pressure [Ri ght Upper Arm] Pulse Oximetry 97 98 95 Oxygen Delivery Me thod Room Air Room Air Room Air 11/29/23 13:33 11/29/23 13:45 Temperature 98.5 F 98.5 F Pulse Rate 65 Pulse Rate [Left P ulse Oximeter] 65 Pulse Rate [Pulse Oximeter] Respiratory Rate 18 18 Blood Pressure 119/60 Blood Pressure [Ri ght Arm] 119/60 Blood Pressure [Ri ght Upper Arm] Pulse Oximetry 95 95 Oxygen Delivery Me thod Room Air Room Air Documenting provider has reviewed patient's vital signs: yes Hospitalist - H&P: Result Labs Labs: Short CBC 11/29/23 Range/Units 09:43 WBC 10.17 (4.50-11.00) K/uL Hgb 13.4 L (13.5-17.5) gm/dL Hct 40.8 (37.0-53.0) % Plt Count 240 (140-440) K/uL BMP 11/29/23 09:43 Sodium 137 Potassium 3.3 L Chloride 103 Carbon Dioxide 27 BUN 11 Creatinine 0.7 Glucose 120 H Calcium 8.8 Assessment and Plan Assessment and plan (1) Abscess of left hand: Problem comment: Status post I&D of hand abscess. Vancomycin and Zosyn pending clinical course and culture. Status: Acute (2) Cellulitis of left hand: Status: Acute Plan Patient is admitted for IV antibiotics and evaluation management of hand infection postoperatively. Continue to coordinate with Orthopedic surgery on ongoing plan of care. Continue management and monitoring of other chronic medical problems. Total Time Spent Total Time Spent: Total time spent today is 60 minutes in evaluation and management.
[2023-11-29] MEDS: OXYCODONE 5 MG TABLET PO ×2 (19:25→22:34)
[2023-11-29] MEDS: ACETAMINOPHEN 500 MG TABLET 1000 MG PO (19:25)
--- NOTE | 2023-11-29 19:48 | PC.NURSE ---
Nursing Care Hours: [id number] Pt this shift alert and oriented, cooperative. Independent in the room. Restless legs. VSS. Pain controlled. CMS and cap refill WNL. Tolerating regular diet. IV infusing LR and ordered ABX.
[2023-11-29] MEDS: MIRTAZAPINE 15 MG TABLET 7.5 MG PO (21:14)
[2023-11-29] MEDS: SENNOSIDES 1 TAB TABLET 2 TAB PO (21:14)
[2023-11-30 03:00] VITALS: BP 117/80; PULSE 53; RESP 16; TEMP 36.4; O2SAT 96
[2023-11-30] MEDS: PIPERACILLIN/TAZOBACTAM 3.375 GM in 0.9 % SODIUM CHLORIDE Mini-bag 100 ML IVPB ×4 (03:16→22:14)
[2023-11-30] MEDS: OMEPRAZOLE 20 MG CAPSULE DR 40 MG PO (06:06)
--- NOTE | 2023-11-30 06:34 | PC.NURSE ---
End of shift note [id number]: Pt alert & oriented x 4 and able to make needs known. 2-/ pain to L hand managed with PRN Oxycodone and Tylenol throughout the shift. Pt transfers/ambulates independently. Pt noted to have temp of 100.4 at start of shift last evening with MD Braga updated. Pt had recently received PRN Tylenol from day RN. Pt has since been afebrile. IV to R FA patent with LR running at 75 mL/hr. Pt continent of bladder. No c/o shortness of breath or CP and pt denies cough when asked. Pt remains on IV antibiotics. CWMS to L hand noted to be intact with REMI wrap in place.
[2023-11-30 07:10] LABS: Basophils Absolute Auto 0.04 K/uL (0.00-0.30); Basophils Percent Auto 0.6 % (0.0-3.0); Eosinophils Absolute Auto 0.39 K/uL (0.00-0.50); Eosinophils Percent Auto 5.4 % (0.0-7.0); Hematocrit 38.5 % (37.0-53.0); Hemoglobin* 12.9 gm/dL (13.5-17.5); Immature Granulocytes Abs Auto 0.01 K/uL (0.00-0.30); Immature Granulocytes Pct Auto 0.1 %; Lymphocytes Absolute Auto 1.61 K/uL (0.90-2.90); Lymphocytes Percent Auto 22.4 % (20-44); Mean Corpuscular HGB Conc 34 gm/dL (32-36); Mean Corpuscular Hemoglobin 30 pg (26-34); Mean Corpuscular Volume 91 fL (80-100); Monocytes Percent Auto 12.5 % (0.0-11.0); Neutrophils Absolute Auto 4.23 K/uL (1.7-7.0); Platelet Count* 230 K/uL (140-440); RDW Coefficient of Variation % 13.9 % (11.5-15.5); Red Blood Count 4.24 m/uL (4.30-5.90); White Blood Count* 7.18 K/uL (4.50-11.00)
[2023-11-30 07:16] LABS: Chloride* 103 mmol/L (96-114); Potassium* 3.3 mmol/L (3.6-5.1); Sodium* 137 mmol/L (135-149)
[2023-11-30 07:18] LABS: Creatinine* 0.6 mg/dL (0.5-1.5); Est. Creatinine Clearance* 55.08; Estimated Glomerular Filt Rate 98 ml/min
[2023-11-30 07:19] LABS: Anion Gap 6 mEq/L (7-15); Calcium* 8.5 mg/dL (8.4-10.6); Carbon Dioxide* 28 mmol/L (20-32); Glucose* 93 mg/dL (60-115)
[2023-11-30 07:22] LABS: C Reactive Protein* 8.7 mg/dL (0.5-1.0)
[2023-11-30 07:28] LABS: Blood Urea Nitrogen* 12 mg/dL (7-30)
[2023-11-30 07:35] LABS: Slide Review Reflex No
[2023-11-30] MEDS: SENNOSIDES 1 TAB TABLET 2 TAB PO (08:34)
[2023-11-30] MEDS: hydroCHLOROthiazide 25 MG TABLET PO (08:34)
[2023-11-30] MEDS: ESCITALOPRAM 10 MG TABLET 20 MG PO (08:34)
[2023-11-30] MEDS: CLOPIDOGREL 75 MG TABLET PO (08:34)
[2023-11-30] MEDS: MULTIVITAMIN/MINERALS 1 TABLET 1 TAB PO (08:34)
[2023-11-30] MEDS: buPROPion XL 150 MG TABLET PO (08:35)
[2023-11-30] MEDS: timoloL maleate 0.25% EYE DROPS 1 DROP EYE-BOTH (08:35)
[2023-11-30 10:47] VITALS: BP 135/70; PULSE 53; RESP 20; TEMP 36.8; O2SAT 94
[2023-11-30] MEDS: ACETAMINOPHEN 500 MG TABLET 1000 MG PO (12:57)
[2023-11-30 13:16] VITALS: BP 139/82; PULSE 57; RESP 20; TEMP 36.7; O2SAT 97
--- NOTE | 2023-11-30 16:14 | P.IMPN_ITS ---
Progress Note: A&P Assessment and plan (1) Abscess of left hand: Problem details: Status post I&D of hand abscess. Admit for IV antibiotics. Continue Vancomycin and Zosyn pending clinical course and culture. Status: Acute (2) Cellulitis of left hand: Problem details: As above Status: Acute (3) History of opioid abuse: Problem details: Patient has only used 1 dose of oxycodone last night. Decrease oxycodone dose and frequency. Monitor. Status: Acute Subjective Time Seen by Provider: 07:49 Date Seen: 11/30/23 Interval history: Vel is feeling better today. He denies any numbness of his left hand. He denies any fever chills. He notes that the redness and streaking that was going up his arm has subsided, but it is still mildly tender there. He denies any chest pain or shortness of breath. Exam Narrative: Exam Narrative: General: No acute distress. Awake, alert, oriented x3. No pallor. No jaundice. Oropharynx: Clear. Mucous membranes moist. Cardiovascular: Regular rate and rhythm. No murmurs, gallops, or rubs. Respiratory: Clear to auscultation bilaterally. No wheezes or crackles. Abdomen: Bowel sounds present. Soft, nondistended, nontender. Extremities: Left hand bandages are clean, dry, and intact. There is no streaking or erythema on the left forearm, although there is some mild tenderness of the lateral aspect of the left forearm. There is edema and erythema of the left middle finger. He is neurovascularly intact in the left fingers. No pedal edema. Const: Vital Signs, click to edit/add: Vital Signs - 24 hr 11/29/23 19:58 11/29/23 20:24 11/29/23 22:46 Temperature 100.4 F H 100.4 F H 98.7 F Pulse Rate [Left P ulse Oximeter] 77 68 Respiratory Rate 16 16 Blood Pressure [Ri ght Arm] 131/73 110/73 Pulse Oximetry 91 92 Oxygen Delivery Me thod Room Air Room Air 11/29/23 22:55 11/30/23 03:00 11/30/23 10:47 Temperature 97.6 F 98.3 F Pulse Rate [Left P ulse Oximeter] 68 53 L 53 L Respiratory Rate 16 16 20 Blood Pressure [Ri ght Arm] 117/80 135/70 Pulse Oximetry 96 94 Oxygen Delivery Me thod Room Air Room Air 11/30/23 13:16 Temperature 98.0 F Pulse Rate [Left P ulse Oximeter] 57 L Respiratory Rate 20 Blood Pressure [Ri ght Arm] 139/82 Pulse Oximetry 97 Oxygen Delivery Me thod Room Air Documenting provider has reviewed patient's vital signs: yes Labs Labs: Laboratory Results - last 24 hr 11/30/23 06:07 WBC 7.18 RBC 4.24 L Hgb 12.9 L Hct 38.5 MCV 91 MCH 30 MCHC 34 RDW Coeff of Eloy 13.9 Plt Count 230 Neut % (Auto) 59.0 Lymph % (Auto) 22.4 Simpson % (Auto) 12.5 H Eos % (Auto) 5.4 Baso % (Auto) 0.6 Neut # (Auto) 4.23 Lymph # (Auto) 1.61 [place] # (Auto) 0.90 Eos # (Auto) 0.39 Baso # (Auto) 0.04 Abs Immat Gran (auto) 0.01 Imm/Tot Granulo (auto) 0.1 Sodium 137 Potassium 3.3 L Chloride 103 Carbon Dioxide 28 Anion Gap 6 L BUN 12 Creatinine 0.6 Estimated Creat Clear 55.08 Estimated GFR 98 Glucose 93 Calcium 8.5 C-Reactive Protein 8.7 H
--- NOTE | 2023-11-30 16:42 | P.ORPN_ITS ---
Subjective Subjective Date Seen: 11/30/23 Principal diagnosis: POD 1 left palmar hand I&D Interval history: Patient reports doing well. No acute events over night. Reports having 100 degree F temperature over night that has since resolved. Notes some mild discom fort that is not requiring any acetaminophen at this time. No oral narcotics for pain needed. Denying to me any fevers or chills. Reports that the ipsilateral form discomfort is improved, mild discomfort still present. Able to move his fingers without significant pain. Ortho Exam Narrative Exam Narrative: Left hand/upper extremity: Postoperative dressings in place. These removed. The wound is mildly macerated, sutures present, drainage with some mild pus present within the wound. There is erythema surrounding the palmar index MCP region just adjacent to the I&D region. This area of erythema is tender to touch. Nontender just ulnar to the I and D wound. The palmar hand and index, long digits are swollen especially more proximal. No fluctuance or induration regarding the forearm 2+ radial pulse, pink warm digits with brisk cap refill; intact dermatomes and myotomes distally including the radial, ulnar, and median nerve distributions Const Vital Signs, click to edit/add: Vital Signs - 24 hr 11/29/23 19:58 11/29/23 20:24 11/29/23 22:46 Temperature 100.4 F H 100.4 F H 98.7 F Pulse Rate [Left Pulse Oximeter] 77 68 Respiratory Rate 16 16 Blood Pressure [Right Arm] 131/73 110/73 Pulse Oximetry 91 92 Oxygen Delivery Method Room Air Room Air 11/29/23 22:55 11/30/23 03:00 11/30/23 10:47 Temperature 97.6 F 98.3 F Pulse Rate [Left Pulse Oximeter] 68 53 L 53 L Respiratory Rate 16 16 20 Blood Pressure [Right Arm] 117/80 135/70 Pulse Oximetry 96 94 Oxygen Delivery Method Room Air Room Air 11/30/23 13:16 Temperature 98.0 F Pulse Rate [Left Pulse Oximeter] 57 L Respiratory Rate 20 Blood Pressure [Right Arm] 139/82 Pulse Oximetry 97 Oxygen Delivery Method Room Air Assessment and Plan Assessment and plan (1) Abscess of left hand: Problem details: Status post I&D of hand abscess. Admit for IV antibiotics. Continue Vancomycin and Zosyn pending clinical course and culture. Status: Acute (2) Cellulitis of left hand: Problem details: As above Status: Acute Plan - Prescribed analgesics as needed - likely only needing acetaminophen at the most - wound care performed: The dressings were removed. ChloraPrep used to clean the wound area and palm. Adaptic, Telfa, gauze, Kerlix, and Rosendo bandage applied to the hand. Encouraged gentle finger motion, elevation of his hand above his heart. We will plan to change dressing inspected wound tomorrow, 12/01/2023. - plan is to keep patient in hospital to receive IV antibiotics until culture sensitivities are received. - Anticipation is for discharge to home once culture sensitivities are received for outpatient management. Pending patient's discharge, likely follow-up this 12/03/2023 with [facility] at [facility]
[2023-11-30 19:00] VITALS: BP 137/75; PULSE 66; RESP 18; TEMP 36.9; O2SAT 94
--- NOTE | 2023-11-30 19:56 | PC.NURSE ---
End of shift [id number] - Pt alert, oriented, cooperative. Up independently in room, continent of bowel and bladder. Tolerating RA, regular diet/fluids. Pt reported pain in L hand as 2/10, RN noted edema of fingers on L hand, capillary refill <3 seconds. RN contacted ortho PA to examine pt dressing, re-dress site, and observe edema. RN provided pt with education regarding proper elevation of extremely to encourage reduction of edema with verbalized understanding per ortho PA recommendation. Family at bedside during shift.
[2023-11-30] MEDS: MIRTAZAPINE 15 MG TABLET 7.5 MG PO (22:10)
[2023-11-30 22:19] LABS: C.Difficile Negative (Negative); CDIFFEPI 027 PRESUMPTIVE NEGATIVE (Negative)
[2023-11-30 22:20] VITALS: BP 136/75; PULSE 74; TEMP 37; O2SAT 95
[2023-12-01] MEDS: LOPERAMIDE HCL 2 MG CAPSULE PO (01:05)
[2023-12-01 03:00] VITALS: BP 137/81; PULSE 61; RESP 16; TEMP 36.8; O2SAT 98
[2023-12-01] MEDS: PIPERACILLIN/TAZOBACTAM 3.375 GM in 0.9 % SODIUM CHLORIDE Mini-bag 100 ML IVPB ×4 (03:47→21:08)
--- NOTE | 2023-12-01 05:03 | PC.NURSE ---
Patient pleasant, alert and oriented. Independent in room. Tolerating pain rated 0-2/10. Reported having a slight headache. CMS intact. Dressing to left hand CD&I. PRN Imodium effective.?
[2023-12-01] MEDS: OMEPRAZOLE 20 MG CAPSULE DR 40 MG PO (06:17)
[2023-12-01] MEDS: ACETAMINOPHEN 500 MG TABLET 1000 MG PO ×2 (06:18→21:07)
[2023-12-01 07:00] VITALS: BP 153/92; PULSE 65; RESP 16; TEMP 36.8; O2SAT 93
[2023-12-01 07:31] LABS: C Reactive Protein* 5.6 mg/dL (0.5-1.0)
[2023-12-01 08:04] LABS: Basophils Absolute Auto 0.05 K/uL (0.00-0.30); Basophils Percent Auto 0.7 % (0.0-3.0); Hematocrit 40.5 % (37.0-53.0); Hemoglobin* 13.3 gm/dL (13.5-17.5); Immature Granulocytes Abs Auto 0.01 K/uL (0.00-0.30); Immature Granulocytes Pct Auto 0.1 %; Lymphocytes Percent Auto 16.8 % (20-44); Mean Corpuscular HGB Conc 33 gm/dL (32-36); Mean Corpuscular Hemoglobin 30 pg (26-34); Mean Corpuscular Volume 91 fL (80-100); Monocytes Percent Auto 9.2 % (0.0-11.0); Neutrophils Absolute Auto 4.69 K/uL (1.7-7.0); Neutrophils Percent Auto 64.2 % (42.0-72.0); Platelet Count* 244 K/uL (140-440); RDW Coefficient of Variation % 13.9 % (11.5-15.5); Red Blood Count 4.44 m/uL (4.30-5.90); White Blood Count* 7.31 K/uL (4.50-11.00)
[2023-12-01 08:09] LABS: Slide Review Reflex No
[2023-12-01] MEDS: ESCITALOPRAM 10 MG TABLET 20 MG PO (09:17)
[2023-12-01] MEDS: MULTIVITAMIN/MINERALS 1 TABLET 1 TAB PO (09:17)
[2023-12-01] MEDS: CLOPIDOGREL 75 MG TABLET PO (09:18)
[2023-12-01] MEDS: buPROPion XL 150 MG TABLET PO (09:18)
[2023-12-01] MEDS: timoloL maleate 0.25% EYE DROPS 1 DROP EYE-BOTH (09:18)
[2023-12-01] MEDS: hydroCHLOROthiazide 25 MG TABLET PO (09:18)
[2023-12-01 11:00] VITALS: BP 142/96; PULSE 60; RESP 18; TEMP 36.4; O2SAT 94
--- NOTE | 2023-12-01 14:48 | PM.ORPN ---
Subjective Subjective Date Seen: 12/01/23 Principal diagnosis: POD 2 left palmar hand I&D Interval history: Patient reports doing well; hand is feeling better. Fingers less swollen. Feels the 2nd web space is a little full. No acute events over night. No fever. Notes some mild discomfort that is not requiring any pain medication. Reports that the ipsilateral forearm is feeling better. No drainage on dressingss Ortho Exam Narrative Exam Narrative: Left hand: Bandages are not saturated and intact Wound appears similar to previous day - erythema slightly darker in color A1 judah region/palmar aspect of the index MCP region with some erythema just ulnar to the wound as well. This area of erythema is less tender than previous day and without fluctuance or induration. The wound shows fibrinous tissue with approximately 2-3 mm gapping of the wound. Sutures are intact but a under tension due to swelling of the wound. No pus or foul odor nontender through the fingers. No fixed flexion of the fingers or increased pain with passive extension of the fingers at the MCP joints. No pain through the palm or adjacent fingers Left forearm is soft nontender Const Vital Signs, click to edit/add: Vital Signs - 24 hr 11/30/23 19:00 11/30/23 22:20 12/01/23 03:00 Temperature 98.4 F 98.6 F 98.2 F Pulse Rate [Left Pulse Oximeter] 66 74 61 Respiratory Rate 18 16 Blood Pressure [Right Arm] 137/75 136/75 137/81 Pulse Oximetry 94 95 98 Oxygen Delivery Method Room Air Room Air Room Air 12/01/23 07:00 12/01/23 07:00 12/01/23 11:00 Temperature 98.2 F 97.6 F Pulse Rate [Left Pulse Oximeter] 65 65 60 Respiratory Rate 16 16 18 Blood Pressure [Right Arm] 153/92 H 142/96 H Pulse Oximetry 93 94 Oxygen Delivery Method Room Air Assessment and Plan Assessment and plan (1) Abscess of left hand: Problem details: POD 2 I&D of hand abscess. Admit for IV antibiotics. Continue Vancomycin and Zosyn pending clinical course and culture. Cultures indicate gram positive cocci; awaiting sensitives. Status: Acute (2) Cellulitis of left hand: Problem details: As above Status: Acute Plan Today, dressing was removed. The hand and wound was cleansed with ChloraPrep. Benzoin and Steri-Strips applied. This Steri-Strips applied loosely in order to take some tension off the sutures and skin, but still allow the wound to drain and heal from a secondary intent. Telfa, gauze, Kerlix, and Rosendo bandage applied as well. Encouraged elevation, gentle motion of his fingers, and elbow motion. Once antibiotic sensitivities are back, patient will be transition to an oral antibiotic to cover Gram-positive cocci for discharge. Likely, patient will stay 1 more night in the hospital because pending sensitivities. We will plan to see him tomorrow for wound check, possible dressing change.
--- NOTE | 2023-12-01 14:54 | PC.NURSE ---
Patient VSS. Alert and oriented. Tolerated a regular diet well. No complaints of pain in left hand during shift. Ambulates independently. at bedside. Patient and walked the halls x2 this afternoon.
[2023-12-01 15:00] VITALS: BP 126/83; PULSE 63; RESP 16; TEMP 36.4; O2SAT 97
[2023-12-01] MEDS: 0.9 % SODIUM CHLORIDE 250 ml IV (15:52)
--- NOTE | 2023-12-01 16:51 | PM.IMPN1 ---
Progress Note: A&P Assessment and plan (1) Abscess of left hand: Problem details: POD 2 I&D of hand abscess. Two G+ organisms on culture. Continue Vancomycin and Zosyn pending clinical course and sensitivities. Status: Acute (2) Cellulitis of left hand: Problem details: As above Status: Acute (3) History of opioid abuse: Status: Acute Subjective Time Seen by Provider: 09:51 Date Seen: 12/01/23 Interval history: Vel is feeling well. His hand is less painful. He still has mild tenderness over the left lateral forearm. Exam Narrative: Exam Narrative: General: No acute distress. Awake, alert, oriented. Cardiovascular: Regular rate and rhythm. No murmurs, gallops, or rubs. Respiratory: Clear to auscultation bilaterally. No wheezes or crackles. Extremities: Left hand bandages are clean, dry, and intact. There is no streaking or erythema on the left forearm, although there is some mild tenderness of the lateral aspect of the left forearm. Edema and erythema of the left middle finger is improving. He is neurovascularly intact in the left fingers. No pedal edema. Const: Vital Signs, click to edit/add: Vital Signs - 24 hr 11/30/23 19:00 11/30/23 22:20 12/01/23 03:00 Temperature 98.4 F 98.6 F 98.2 F Pulse Rate [Left P ulse Oximeter] 66 74 61 Respiratory Rate 18 16 Blood Pressure [Ri ght Arm] 137/75 136/75 137/81 Pulse Oximetry 94 95 98 Oxygen Delivery Me thod Room Air Room Air Room Air 12/01/23 07:00 12/01/23 07:00 12/01/23 11:00 Temperature 98.2 F 97.6 F Pulse Rate [Left P ulse Oximeter] 65 65 60 Respiratory Rate 16 16 18 Blood Pressure [Ri ght Arm] 153/92 H 142/96 H Pulse Oximetry 93 94 Oxygen Delivery Me thod Room Air 12/01/23 15:00 12/01/23 15:00 Temperature 97.6 F Pulse Rate [Left P ulse Oximeter] 63 63 Respiratory Rate 16 16 Blood Pressure [Ri ght Arm] 126/83 Pulse Oximetry 97 Oxygen Delivery Me thod Room Air Documenting provider has reviewed patient's vital signs: yes Labs Labs: Laboratory Results - last 24 hr 11/30/23 12/01/23 20:34 06:26 WBC 7.31 RBC 4.44 Hgb 13.3 L Hct 40.5 MCV 91 MCH 30 MCHC 33 RDW Coeff of Eloy 13.9 Plt Count 244 Neut % (Auto) 64.2 Lymph % (Auto) 16.8 L [place] % (Auto) 9.2 Eos % (Auto) 9.0 H Baso % (Auto) 0.7 Neut # (Auto) 4.69 Lymph # (Auto) 1.20 [place] # (Auto) 0.70 Eos # (Auto) 0.70 H Baso # (Auto) 0.05 Abs Immat Gran (auto) 0.01 Imm/Tot Granulo (auto) 0.1 C-Reactive Protein 5.6 H Stl C. diff Tox B Gene Negative Stl C. diff [id number] PRESUMPTIVE NEGATIVE
[2023-12-01 19:00] VITALS: BP 148/95; PULSE 70; RESP 18; TEMP 36.8; O2SAT 95
[2023-12-01] MEDS: MIRTAZAPINE 15 MG TABLET 7.5 MG PO (21:07)
[2023-12-01] MEDS: SENNOSIDES 1 TAB TABLET 2 TAB PO (21:07)
[2023-12-01] MEDS: SODIUM CHLORIDE 0.9 % (FLUSH) 10 ML SYRINGE 5 ML IVF (21:08)
[2023-12-02] VITALS: BP 157/97; PULSE 67; PULSE 70; RESP 18; TEMP 36.6; O2SAT 96
[2023-12-02 02:03] LABS: Chloride* 107 mmol/L (96-114); Potassium* 3.9 mmol/L (3.6-5.1); Sodium* 138 mmol/L (135-149)
[2023-12-02 02:06] LABS: Anion Gap 8 mEq/L (7-15); Blood Urea Nitrogen* 13 mg/dL (7-30); Carbon Dioxide* 23 mmol/L (20-32); Creatinine* 0.7 mg/dL (0.5-1.5); Est. Creatinine Clearance* 55.08; Estimated Glomerular Filt Rate 93 ml/min
[2023-12-02 02:07] LABS: Calcium* 9.3 mg/dL (8.4-10.6); Glucose* 94 mg/dL (60-115)
[2023-12-02 03:00] VITALS: BP 149/104; PULSE 60; RESP 18; TEMP 36.6; O2SAT 97
[2023-12-02] MEDS: ACETAMINOPHEN 500 MG TABLET 1000 MG PO ×2 (03:11→10:20)
[2023-12-02] MEDS: PIPERACILLIN/TAZOBACTAM 3.375 GM in 0.9 % SODIUM CHLORIDE Mini-bag 100 ML IVPB ×2 (03:11→08:40)
[2023-12-02] MEDS: OMEPRAZOLE 20 MG CAPSULE DR 40 MG PO (06:32)
[2023-12-02 06:49] LABS: Basophils Absolute Auto 0.05 K/uL (0.00-0.30); Basophils Percent Auto 0.7 % (0.0-3.0); Eosinophils Percent Auto 9.6 % (0.0-7.0); Hematocrit 43.6 % (37.0-53.0); Hemoglobin* 14.5 gm/dL (13.5-17.5); Immature Granulocytes Abs Auto 0.05 K/uL (0.00-0.30); Immature Granulocytes Pct Auto 0.7 %; Lymphocytes Absolute Auto 1.58 K/uL (0.90-2.90); Lymphocytes Percent Auto 21.9 % (20-44); Mean Corpuscular HGB Conc 33 gm/dL (32-36); Mean Corpuscular Hemoglobin 30 pg (26-34); Mean Corpuscular Volume 91 fL (80-100); Monocytes Percent Auto 9.4 % (0.0-11.0); Neutrophils Absolute Auto 4.15 K/uL (1.7-7.0); Neutrophils Percent Auto 57.7 % (42.0-72.0); Platelet Count* 292 K/uL (140-440); RDW Coefficient of Variation % 13.8 % (11.5-15.5); Red Blood Count 4.82 m/uL (4.30-5.90)
--- NOTE | 2023-12-02 06:55 | PC.NURSE ---
Shift note: The pt has been pleasant and cooperative; denied chest pain and short of breath; Spo2 has been in the 90s in RA. The left hand incision is covered with dressing- clean, dry and intact. No fever is noted. Tylenol was given for headache with a good relief.The pt appeared without any acute distress.
[2023-12-02 07:00] LABS: Slide Review Reflex No
[2023-12-02 07:09] LABS: C Reactive Protein* 3.2 mg/dL (0.5-1.0)
[2023-12-02 07:47] VITALS: BP 171/111; PULSE 60; RESP 18; TEMP 36.7; O2SAT 96
[2023-12-02] MEDS: buPROPion XL 150 MG TABLET PO (08:40)
[2023-12-02] MEDS: CLOPIDOGREL 75 MG TABLET PO (08:40)
[2023-12-02] MEDS: MULTIVITAMIN/MINERALS 1 TABLET 1 TAB PO (08:41)
[2023-12-02] MEDS: hydroCHLOROthiazide 25 MG TABLET PO (08:41)
[2023-12-02] MEDS: SODIUM CHLORIDE 0.9 % (FLUSH) 10 ML SYRINGE 5 ML IVF (08:41)
[2023-12-02] MEDS: timoloL maleate 0.25% EYE DROPS 1 DROP EYE-BOTH (08:41)
[2023-12-02] MEDS: ESCITALOPRAM 10 MG TABLET 20 MG PO (08:41)
[2023-12-02 09:04] VITALS: PULSE 60; RESP 18
--- NOTE | 2023-12-02 10:36 | P.DS_ITS ---
DS: Providers Provider Date Seen: 12/02/23 Date of admission: 11/30/23 14:16 Primary care physician: India Jacques MD Admitting Clinician: Priscilla Douglas MD Attending Physician on discharge: Kristie Hernandes [facility], PA-C [facility] Date of Discharge: 12/02/23 DS: Diagnosis Discharge Diagnosis (1) Abscess of left hand: Status: Acute Problem details: Admitted with left hand infection and abscess, suspected secondary to a sliver in that hand. I&D of hand abscess on 11/29/23 with Orthopedic surgery. Culture grew Staph aureus and Staph epidermidis. Both sensitive to doxycycline. Vancomycin and Zosyn during hospital course was transitioned to oral doxycycline on discharge. Outpatient follow up in Orthopedic Clinic on 12/03/23 (2) Cellulitis of left hand: Status: Acute Problem details: Management as above Outpatient follow-up with Orthopedic surgery tomorrow DS: Summary Hospital Course Hospital Course: [age] year old male was admitted to the medical floor for further management left hand infection/abscess with surgical I&D on 11/28. Course of care and details as noted above. IV antibiotics transition to oral antibiotics. Outpatient follow-up with orthopedic clinic on 12/03/2023 Remainder of chronic medical comorbidities were monitored and managed with home medications. Status at Discharge Overall status at discharge: patient is back to baseline Time Spent with Patient Time attestation: Total time spent providing and/or coordinating discharge services: Time spent: Greater than 30 minutes Exam Narrative: Exam Narrative: PHYSICAL EXAM General: Pleasant, conversant, NAD Cardiovascular: RRR Pulmonary: No dyspnea Neurological: Alert, answering questions appropriately Skin: Warm, dry. Const: Vital Signs, click to edit/add: Vital Signs - 24 hr 12/01/23 11:00 12/01/23 15:00 12/01/23 15:00 Temperature 97.6 F 97.6 F Pulse Rate [Left P ulse Oximeter] 60 63 63 Respiratory Rate 18 16 16 Blood Pressure [Ri ght Arm] 142/96 H 126/83 Pulse Oximetry 94 97 Oxygen Delivery Me thod Room Air Room Air 12/01/23 19:00 12/02/23 00:00 12/02/23 00:00 Temperature 98.3 F 97.9 F Pulse Rate [Left P ulse Oximeter] 70 67 70 Respiratory Rate 18 18 18 Blood Pressure [Ri ght Arm] 148/95 H 157/97 H Pulse Oximetry 95 96 Oxygen Delivery Me thod Room Air Room Air 12/02/23 03:00 12/02/23 07:47 12/02/23 09:04 Temperature 97.8 F 98.0 F Pulse Rate [Left P ulse Oximeter] 60 60 60 Respiratory Rate 18 18 18 Blood Pressure [Ri ght Arm] 149/104 H 171/111 H Pulse Oximetry 97 96 Oxygen Delivery Me thod Room Air Room Air DS: Data Data Completed and Pending Labs on day of discharge: Labs from last 24 hours 12/02/23 12/01/23 06:02 06:26 WBC 7.20 RBC 4.82 Hgb 14.5 Hct 43.6 MCV 91 MCH 30 MCHC 33 RDW Coeff of Eloy 13.8 Plt Count 292 Neut % (Auto) 57.7 Lymph % (Auto) 21.9 Page % (Auto) 9.4 Eos % (Auto) 9.6 H Baso % (Auto) 0.7 Neut # (Auto) 4.15 Lymph # (Auto) 1.58 Page # (Auto) 0.70 Eos # (Auto) 0.70 H Baso # (Auto) 0.05 Abs Immat Gran (auto) 0.05 Imm/Tot Granulo (auto) 0.7 Sodium 138 Potassium 3.9 Chloride 107 Carbon Dioxide 23 Anion Gap 8 BUN 13 Creatinine 0.7 Estimated Creat Clear 55.08 Estimated GFR 93 Glucose 94 Calcium 9.3 C-Reactive Protein 3.2 H Discharge Plan Discharge Disposition: Home, Self-Care Date of Admission: 11/30/23 14:16 Attending Provider on Discharge: Kristie Hernandes Primary Care Provider: India Jacques Condition: Improved Anticipated Discharge Date/Time: 12/02/23 10:31 Discharge Medications: New doxycycline hyclate 100 mg capsule 100 mg PO BID Qty: 14 0RF Continued clopidogrel 75 mg tablet 75 mg PO DAILY Qty: 90 3RF pantoprazole 40 mg tablet,delayed release (DR/EC) 40 mg PO DAILY Qty: 90 3RF hydrochlorothiazide 25 mg tablet 25 mg PO DAILY Qty: 90 3RF mirtazapine 7.5 mg tablet 7.5 mg PO HS Qty: 90 3RF timolol maleate 0.25 % drops 1 drp ophthalmic (eye) QAM diclofenac sodium 1 % gel 2 g topical BID PRN desoximetasone 0.25 % cream 1 applic topical BID PRN multivitamin [Multiple Vitamins] Tablet 1 tab PO QAM methylphenidate HCl [Concerta] 18 mg tablet extended release 24hr 18 mg PO QAM Qty: 90 0RF escitalopram oxalate 20 mg tablet 20 mg PO DAILY albuterol sulfate 90 mcg/actuation HFA aerosol inhaler 2 inh inhalation Q4H PRN fluorouracil 5 % cream 1 applic topical Q7D Rx Instructions: Apply topically to affected area one night (Wednesday) every week acetaminophen 500 mg capsule 500 - 1,000 mg PO Q6H MDD 4000mg PRNQty: 100 0RF bupropion HCl 150 mg tablet extended release 24 hr 150 mg PO DAILY Qty: 90 3RF Discontinued sulfamethoxazole-trimethoprim 800-160 mg tablet 1 tab PO BID 7 Days Qty: 14 0RF Discharge Orders: Discharge Order (Routine); Ordered 12/02/23 Ordered By: Kristie Hernandes Patient Education: Doxycycline (By mouth), Cellulitis (GEN) Activity Level: No Restrictions Discharge Diet: Regular Follow Up Appointments: India Jacques MD [Primary Care Provider] - Catarino Lopez PA-C [Physician Recycling Coordinator] - 12/03/23 8:50 am (Post surgical follow up at [facility].) Forms: [facility] Info Instructions
--- NOTE | 2023-12-02 11:59 | PC.NURSE ---
Discharge: Patient pleasant and cooperative, A&O. VSS, afebrile. Patient reports a headache this shift, managed with PRN medication, see MAR. Dressing on left hand C/D/I. IV removed with tip intact. Discharge instructions provided. Discharged to home with .
--- NOTE | 2023-12-02 14:54 | PM.ORPN ---
Subjective Subjective Date Seen: 12/02/23 Principal diagnosis: POD 3 left palmar hand I&D Interval history: Patient reports doing well. No acute events over night. Reports fingers feel swollen and show better movement. Dressing remains dry. No pain. Denies fevers, chills, aches, N/V, CP, SOB/CORTES, or lightheadedness. Reports that it was decided to place patient on doxycycline for discharge. Ortho Exam Narrative Exam Narrative: Left hand: Dressings were not removed today. They were in good condition without saturation Fingers appear normal in size, no longer swollen specially regarding the index and long finger on the left. 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 Nontender digits; no pain increase with passive extension of the digits regarding the MCP and PIP joints. Nontender form without erythema No erythema about the digits [place] warm digits with brisk cap refill; intact dermatomes and myotomes distally including the radial, ulnar, and median nerve distributions Const Vital Signs, click to edit/add: Vital Signs - 24 hr 12/01/23 15:00 12/01/23 15:00 12/01/23 19:00 Temperature 97.6 F 98.3 F Pulse Rate [Left Pulse Oximeter] 63 63 70 Respiratory Rate 16 16 18 Blood Pressure [Right Arm] 126/83 148/95 H Pulse Oximetry 97 95 Oxygen Delivery Method Room Air Room Air 12/02/23 00:00 12/02/23 00:00 12/02/23 03:00 Temperature 97.9 F 97.8 F Pulse Rate [Left Pulse Oximeter] 67 70 60 Respiratory Rate 18 18 18 Blood Pressure [Right Arm] 157/97 H 149/104 H Pulse Oximetry 96 97 Oxygen Delivery Method Room Air Room Air 12/02/23 07:47 12/02/23 09:04 Temperature 98.0 F Pulse Rate [Left Pulse Oximeter] 60 60 Respiratory Rate 18 18 Blood Pressure [Right Arm] 171/111 H Pulse Oximetry 96 Oxygen Delivery Method Room Air Assessment and Plan Assessment and plan (1) Abscess of left hand: Problem details: I&D of hand abscess. Culture grew Staph aureus and Staph epidermidis. Both sensitive to doxycycline. Vancomycin and Zosyn during hospital course, transitioned to oral doxycycline on discharge. Outpatient follow up in Orthopedic Clinic on 12/03/23 Status: Acute (2) Cellulitis of left hand: Problem details: As above Status: Acute Plan Today, we did not perform dressing changes as the dressing appeared non saturated. Plan will be to remove the dressings tomorrow in clinic and redress. With Staph aureus (MSSA) and Staph epidermidis growing on cultures, doxycycline is appropriate oral antibiotic for discharge. Okay to take Tylenol as needed for discomfort and continue the rest of his chronic medications. Still encouraged elevation, digit motion, and ice as needed. Call clinic if worsening symptoms such as erythematous digits, swollen digits, increased pain and tenderness, and/or fevers. Will see him tomorrow in clinic 12/03/2023.
--- OUTSIDE RECORDS SUMMARY | 2023-12-08 10:03 | XMS_ITS | Referral Summary ---
Author Organization [facility] Address [address] [place] [address] Care Team Providers Care Senior Paralegal Name Role Phone Unavailable Primary Care Provider Unavailabl e Source Comments Patient records contain information from all sites at [facility]. For routine questions regarding patient records, call [phone] during business hours, M-F 8:00 AM - 5:00 PM Central Time. Record requests for emergency care only can be directed to [phone] at any time.[facility] Encounters Date Type Department Care Team Description 12/08/2023 9:00 AM CDT Office Visit Department of Spine in [place], [place] [address] [place] [phone] Hu Mon D.C. Dysfunction Somatic Cervical Region (Primary Dx); Dysfunction Somatic Thoracic Region; Pain Myofascial; Scoliosis 11/24/2023 9:00 AM CDT Office Visit Department of Spine in [place], [place] [address] [place] [phone] Hu Mon D.C. Dysfunction Somatic Cervical Region (Primary Dx); Dysfunction Somatic Thoracic Region; Dysfunction Somatic Lumbar Region; Scoliosis; Pain Myofascial 11/10/2023 8:00 AM CDT Comprehensive Visit Department of Spine in [place], [place] [address] [place] [phone] Regulo Tello APRN, C.N.PHu Trinh D.C. Dysfunction Somatic Thoracic Region (Primary Dx); Dysfunction Somatic Cervical Region; Dysfunction Somatic Lumbar Region; Scoliosis; Pain Myofascial from Last 3 Months Allergies Active Allergy [...] mg tablet 08/28/2018 Active miscellaneous medical supply misc BIPAP machine for home use at pressure: [...] re latives? Once a week 01/23/2020 Attends [employer] Not on file 01/22 Active Member [...] care, and heating? Not very hard 01/23/2020 [facility] [place] of Occupat ional Health - Occupational Stress [...] - Respiratory Rate 14 07/11/2014 1:05 PM WAREHOUSE UNLOADER Vital sign result from Clinical Notes. Oxygen Saturation - - Inhaled Oxygen Concentration - - Weight 86.4 kg (190 lb 7.6 oz) 06/08/2023 3:13 PM WAREHOUSE UNLOADER Height 169.2 cm (5' 6.61) 06/08/2023 3 :13 PM WAREHOUSE UNLOADER Body Mass Index 30.18 06/08/2023 3:13 PM WAREHOUSE UNLOADER Plan of Treatment Upcoming Encounters Date Type Department Care Team (Late st Contact Info) Description 01/06/2024 7:30 AM CDT Office Visit Department of Spine in [place], [place] [address] [place] [address] [facility] D[facility]. [address] [place] [phone] 01/19/2024 8:00 AM CDT Office Visit Department of Spine in [place], [place] [address] [place] [address] [facility] Mon D.C. [address] [place] [phone] Medical Devices Implanted Type Area [employer] Manager Device Identifier Shelf Expiration Date Model / [...] Procedure Name Priority Date/Time Associated Diagnosis Comments SODIUM, S/P Routine 06/08/2023 6:53 AM WAREHOUSE UNLOADER Vascular Agustina Danlos Syndrome (HCC) POTASSIUM, S/P Routine 06/08/2023 6:53 AM WAREHOUSE UNLOADER Vascular Agustina Danlos Syndrome (HCC) CREATININE WITH EGFR, S/P Routine 06/08/2023 6:53 AM WAREHOUSE UNLOADER Vascular Agustina Danlos Syndrome (HCC) from Last 3 Months or Most Recently Relevant to Health Maintenance Results * Sodium (06/08/2023 6:53 AM WAREHOUSE UNLOADER) Sodium, S 141 135 - 145 mmol/L 06/08/2023 7:55 AM WAREHOUSE UNLOADER DTL Blood (Blood, Venous) 06/08/2023 6:53 AM WAREHOUSE UNLOADER 06/08/2023 7:36 AM WAREHOUSE UNLOADER Dionisio Carreon M.D. LAB BLOOD ADD-ON Performing Organization Address City/[facility] [place]/ZIP Co de Phone Number [facility] [address] [facility] 200 [place] [address] * Potassium (06/08/2023 6:53 AM WAREHOUSE UNLOADER) Potassium, S 3.9 3.6 - 5.2 mmol/L 06/08/2023 7:55 AM WAREHOUSE UNLOADER DTL Blood (Blood, Venous) 06/08/2023 6:53 AM WAREHOUSE UNLOADER 06/08/2023 7:36 AM WAREHOUSE UNLOADER Dionisio Carreon M.D. LAB BLOOD ADD-ON Performing Organization Address [facility] [place]/[facility] Co de Phone Number [facility] [address] 200 [place] [address] * Creatinine with Estimated GFR (06/08/2023 6:53 AM WAREHOUSE UNLOADER) Creatinine 0.84 0.74 - 1.35 mg/dL 06/08/2023 7:55 AM WAREHOUSE UNLOADER DTL Estimated GFR (eGFR) 88 >=60 mL/min/BSA 06/08/2023 7:55 AM WAREHOUSE UNLOADER DTL Comment: Estimated GFR calculated using the 2020 CKD_EPI creatinine equation. Blood (Blood, Venous) 06/08/2023 6:53 AM WAREHOUSE UNLOADER 06/08/2023 7:36 AM WAREHOUSE UNLOADER Dionisio Carreon M.D. LAB BLOOD ADD-ON Performing Organization Address [facility] [place]/ZIP Co de Phone Number [facility] 200 [place] [address], [facility] DTL [facility] [address] [place] [address] from Last 3 Months or Most Recently Relevant to Health Maintenance
--- OUTSIDE RECORDS SUMMARY | 2023-12-08 10:03 | XMS_ITS | Clinical Summary ---
Author Organization [facility] Address [address] [place] [address] Care Team Providers Care Hospice Case Manager Name Role Phone Unavailable Primary Care Provider Unavailabl e Source Comments Patient records contain information from all sites at [facility]. For routine questions regarding patient records, call [phone] during business hours, M-F 8:00 AM - 5:00 PM Central Time. Record requests for emergency care only can be directed to [phone] at any time.[facility] Allergies Active Allergy Reactions Criticality Noted [...] mg tablet 08/28/2018 Active miscellaneous medical supply [facility] [...] CDT Office Visit Department of Spine in [place], [place] [address] [place] [address] Hu Mon D.C. Dysfunction Somatic Cervical Region (Primary Dx); Dysfunction Somatic Thoracic Region; Pain Myofascial; Scoliosis 11/24/2023 9:00 AM CDT Office Visit Department of Spine in [place], [place] [address] [place] [address] Hu Mon D.C. Dysfunction Somatic Cervical Region (Primary Dx); Dysfunction Somatic Thoracic Region; Dysfunction Somatic Lumbar Region; Scoliosis; Pain Myofascial 11/10/2023 8:00 AM CDT Comprehensive Visit Department of Spine in [place], [place] [address] [place] [address] Regulo Tello, Inocente TINSLEY Kevin G, D.C. Dysfunction Somatic Thoracic Region (Primary Dx); Dysfunction Somatic Cervical Region; Dysfunction Somatic Lumbar Region; Scoliosis; Pain Myofascial from Last 3 Months Immunizations Name Administration [...] re latives? Once a week 01/23/2020 Attends [employer] Not on file 01/22 Active Member of Clubs or Organizations Not on f ile 01/23/2020 Attends Club or Organization Meetings Not on shanta e 01/23/2020 Marital Status Not on file 01/23/2020 AUDIT-C Answer Date Recorded Frequency of Alcohol Consumption 2-4 times a wed01/23/2020 Average Number of Drinks 1 or 2 09/01/2 020 Frequency of Binge Drinking Never 05/2019 Overall Financial Resource Strain (CARDIA) Answe r Date Recorded How hard is it for you to pa y for the very basics like food, housing, medical care, and heating? Not very hard 01/23/2020 [facility] [place] of Occupat ional Health - Occupational Stress [...] - Respiratory Rate 14 07/11/2014 1:05 PM LOOM FIXER APPRENTICE Vital sign result from Clinical Notes. Oxygen Saturation - - Inhaled Oxygen Concentration - - Weight 86.4 kg (190 lb 7.6 oz) 06/08/2023 3:13 PM LOOM FIXER APPRENTICE Height 169.2 cm (5' 6.61) 06/08/2023 3 :13 PM LOOM FIXER APPRENTICE Body Mass Index 30.18 06/08/2023 3:13 PM LOOM FIXER APPRENTICE Plan of Treatment Upcoming Encounters Date Type Department Care Team (Late st Contact Info) Description 01/06/2024 7:30 AM CDT Office Visit Department of Spine in [place], [place] [address] [place] [address] [facility] D[facility]. [address] [place] [address] 01/19/2024 8:00 AM CDT Office Visit Department of Spine in [place], [place] [address] [place] [address] Hu Mon D.C. [address] [place] [phone] Health Maintenance Due Date Last Done Comments Zoster Vaccines (1 of 2) 1993 Pneumococcal vaccine (65+ ye ars) (2 of 2 - PPSV23 or PCV20) 06/05/2016 06/05/2015, 06/10/2013, 06/10/2013 Depression Screening (Annual PHQ-2) 05/24/2023 Fall Risk Screen (Annual) 05/24/2023 COVID-19 Vaccine (2 4 season) 2023 02/17/2023, 04/08/2022, 10/29/2021, Additional history exists Influenza Vaccine (#1) 2024 3, 04/08/2022, 07/31/2019, Additional history exists Creatinine Level (Kidney Fun ction Test) 06/08/2024 06/08/2023, 10/15/2020, 01/20/2013, Additional history exists Potassium Level 06/08/2024 06/08/2023, 09/22, 01/20/2013, Additional history exists Sodium Level 06/08/2024 06/08/2023, 09/22, 01/20/2013, Additional history exists DTaP,Tdap,and Td Vaccines (5 - Td or Tdap) 11/28/2033 11/29/2023, 03/12/2023, 03/12/2014, Additional history exists Medical Devices Implanted Type Area Accounting Office Manager Device Identifier Shelf Expiration Date Model [...] Comments SODIUM, S/P Routine 06/08/2023 6:53 AM LOOM FIXER APPRENTICE Vascular Agustina Danlos Syndrome (HCC) POTASSIUM, S/P Routine 06/08/2023 6:53 AM LOOM FIXER APPRENTICE Vascular Agustina Danlos Syndrome (HCC) CREATININE WITH EGFR, S/P Routine 06/08/2023 6:53 AM LOOM FIXER APPRENTICE Vascular Agustina Danlos Syndrome (HCC) from Last 3 Months or Most Recently Relevant to Health Maintenance Results * Sodium (06/08/2023 6:53 AM LOOM FIXER APPRENTICE) Sodium, S 141 135 - 145 mmol/L 06/08/2023 7:55 AM LOOM FIXER APPRENTICE DTL Blood (Blood, Venous) 06/08/2023 6:53 AM LOOM FIXER APPRENTICE 06/08/2023 7:36 AM LOOM FIXER APPRENTICE Dionisio Carreon M.D. LAB BLOOD ADD-ON [facility] [address] [place] [address], [facility] DTL [facility] [address] [place] [address] * Potassium (06/08/2023 6:53 AM LOOM FIXER APPRENTICE) Potassium, S 3.9 3.6 - 5.2 mmol/L 06/08/2023 7:55 AM LOOM FIXER APPRENTICE DTL Blood (Blood, Venous) 06/08/2023 6:53 AM LOOM FIXER APPRENTICE 06/08/2023 7:36 AM LOOM FIXER APPRENTICE Dionisio Carreon M.D. LAB BLOOD ADD-ON [facility] [address] [place] [address], [facility] DTFormerly named [facility] [address] [place] [address] * Creatinine with Estimated GFR (06/08/2023 6:53 AM LOOM FIXER APPRENTICE) Creatinine 0.84 0.74 - 1.35 mg/dL 06/08/2023 7:55 AM LOOM FIXER APPRENTICE DTL Estimated GFR (eGFR) 88 >=60 mL/min/BSA 06/08/2023 7:55 AM LOOM FIXER APPRENTICE DTL Comment: Estimated GFR calculated using the 2020 CKD_EPI creatinine equation. Blood (Blood, Venous) 06/08/2023 6:53 AM LOOM FIXER APPRENTICE 06/08/2023 7:36 AM LOOM FIXER APPRENTICE Dionisio Carreon M.D. LAB BLOOD ADD-ON [facility] [address] [place] [address], [facility] DTL [facility] [address] [place] [address] from Last 3 Months or Most Recently Relevant to Health Maintenance [address] [phone]
--- OUTSIDE RECORDS SUMMARY | 2023-12-08 10:03 | XMS_ITS | Encounter Summary ---
Author Organization [facility] Address [address] [place] [address] Care Team Providers Care Dairy And Food Laboratory Assistant Name Role Phone Unavailable Primary Care Provider Unavailabl e Reason for Referral * Outpatient (Routine) - Authorized Specialty Diagnoses / Procedures Referred By Contac t Referred To Contact Hu Coleman D.C. [address] [place] [phone] [facility] Referral ID Status Reason Start Date Expiration Date V isits Requested Visits Authorized [id number] Authorized 12/08/2023 06/08/2025 1 1 Reason for Visit * Outpatient (Routine) - Closed Specialty Diagnoses / Procedures Referred By Contac t Referred To Contact Hu Coleman D.C. [address] [place] [address] [facility] Referral ID Status Reason Start Date Expiration Date Visits Re quested Visits Authorized [id number] Closed 11/10/2023 05/11/2025 2 2 Encounter Details Date Type Department Care Team (Late st Contact Info) Description 12/08/2023 9:00 AM CDT Office Visit Department of Spine in [place], [place] [address] [place] [phone] Hu Mon D.C. [address] [place] [phone] Dysfunction Somatic Cervical Region (Primary Dx); Dysfunction Somatic Thoracic Region; Pain Myofascial; Scoliosis Social History Tobacco Use Types Packs/Day Years [...] re latives? Once a week 01/23/2020 Attends [employer] Not on file 01/22 Active Member [...] care, and heating? Not very hard 01/23/2020 [facility] [place] of Occupat ional Health - Occupational Stress [...] Progress Notes * Hu Mon D.C. - 12/08/2023 9:00 AM CDT Images from the original note were not included. SUBJECTIVE HISTORY OF PRESENT ILLNESS Vel is a 78 y.o. male who presents today for recheck of neck and back pain. He reports that his symptoms are gradually improving in his pain seems to be more manageable. He does relate that his greatest area of concern at this point is his neck and upper back. Symptoms are more prevalent on the right than they are in the left. He denies any radiation of symptoms to the extremities. He has not had any changes in coordination in his hands or fingers. Since his last visit he was diagnosed with cellulitis and was hospitalized in his currently on an antibiotic regiment to treat the condition. Hehas not had persistent fevers or chills. He does not feel as if the cellulitis has resulted in any change in his neck or back symptoms. Modifications to his exercise routine have made things more tolerable. He has started riding an exercise bike at the facility that he lives in and this is also going well. OBJECTIVE PHYSICAL EXAM GENERAL: 78 y.o. male in no acute distress. MUSCULOSKELETAL EXAM: Cervical rotation and lateral flexion are provocative of contralateral symptoms. Severe myofascial restriction is noted bilaterally to the distal levator scapula consistent withreproduction of pain. Joint restriction is noted at the cervicothoracic junction extending to the level of T3 in a prone position. NEUROLOGICAL EXAM: Gross neurological function is normal in the extremities. Observation of gait and balance is within normal limits. 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 Fascial manipulation was performed to the involved connective tissues as indicated in the physical examination. No complications associated with today's visit. He does report a reductionin pain post treatment. Continue with the modified exercise routine and use of cycling. We did discuss that although unlikely that the cellulitis would be a contributor to any of his neck or back symptoms if he starts to notice changes in an increase in intensity of the pain that is different from his baseline that this would warrant were more extensive workup for systemic infection. Recommended c hiropractic recheck in 2-3 weeks. Vel is in agreement with this plan. PRO Scores: 03/18/2020 08/29/2023 12/08/2023 [facility] PROMIS-CAT: Anxiety 56 (mild) 54 (within normal limits) 56 (mild) PROMIS-CAT: Depression 54 (within normal limits) 54 (within normal limits) 54 (within normal limits) PROMIS-CAT: Fatigue 55 (within normal limits) 57 (mild) 59 (mild) PROMIS-CAT: Sleep disturbance 50 (within normal limits) 48 (within normal limits) 52 (within normallimits) PROMIS-CAT: Pain interference 54 (within normal limits) 65 (moderate) 55 (within normal limits) PROMIS-CAT: Ability to participate social roles 58 (within normal limits) 39 (moderate dysfunction)44 (mild dysfunction) PROMIS-CAT: Physical function 38 (moderate dysfunction) 39 (moderate dysfunction) 39 (moderate dysfunction) PROMIS SHORT FORM (Pain Intensity): Pain rating (avg.) 4 4 documented in this encounter Plan of Treatment Upcoming Encounters Date Type Department Care Team (Late st Contact Info) Description 01/06/2024 7:30 AM CDT Office Visit Department of Spine in [place], [place] [address] [place] [phone] Hu Mon D.C. [address] [place] [address] 01/19/2024 8:00 AM CDT Office Visit Department of Spine in [place], [place] [address] [place] [address] Hu Mon D.C. 200 [place] [address] Scheduled Referrals Name Type Priority Associated Diagnoses Orde r Schedule Spine office visit (clinic) Outpatient Referral Routine Expected: 01/08/2024 (Approximate), Expires: 03/09/2025 documented as of this encounter Visit Diagnoses Diagnosis Dysfunction Somatic Cervical Region- Primary Dysfunction Somatic Thoracic Region Pain Myofascial Scoliosis documented in this encounter Additional Health Concerns Assessment Noted Time PHQ-9 Depression Total Score: 1 04/16/20 15 8:53 AM UC ARCHITECT documented as of this encounter
--- OUTSIDE RECORDS SUMMARY | 2023-12-08 10:03 | XMS_ITS | Encounter Summary ---
Author Organization [facility] Address [address] [place] [address] Care Team Providers Care Labor Training Manager Name Role Phone Unavailable Primary Care Provider Unavailabl e Reason for Referral * Outpatient (Routine) - Authorized Specialty Diagnoses / Procedures Referred By Contac t Referred To Contact Hu Coleman D.C. [address] [place] [phone] [facility] Referral ID Status Reason Start Date Expiration Date V isits Requested Visits Authorized [id number] Authorized 11/24/2023 05/25/2025 1 1 Reason for Visit * Outpatient (Routine) - Closed Specialty Diagnoses / Procedures Referred By Contac t Referred To Contact Hu Cloeman D.C. [address] [place] [address] [facility] Referral ID Status Reason Start Date Expiration Date Visits Re quested Visits Authorized [id number] Closed 11/10/2023 05/11/2025 2 2 Encounter Details Date Type Department Care Team (Late st Contact Info) Description 11/24/2023 9:00 AM CDT Office Visit Department of Spine in [place], [place] [address] [place] [phone] Hu Mon D.C. [address] [place] [phone] Dysfunction Somatic Cervical Region (Primary Dx); Dysfunction [...] re latives? Once a week 01/23/2020 Attends [employer] Not on file 01/22 Active Member [...] care, and heating? Not very hard 01/23/2020 [facility] [place] of Occupat ional Health - [...] CDT Office Visit Department of Spine in [place], [place] [address] [place] [address] Hu Mon D.C. [address] [place] [phone] 01/19/2024 8:00 AM CDT Office Visit Department of Spine in [place], [place] [address] [place] [address] Hu Mon D.C. [address] [place] [address] Scheduled Referrals Name Type Priority Associated Diagnoses [...] Total Score: 1 04/16/20 15 8:53 AM COMPENSATION ADJUSTER documented as of this encounter
--- OUTSIDE RECORDS SUMMARY | 2023-12-08 10:03 | XMS_ITS | Encounter Summary ---
Author Organization [facility] Address [address] [place] [address] Care Team Providers Care Quality Assurance Monitor Body Name Role Phone Unavailable Primary Care Provider Unavailabl e Reason for Referral * Outpatient (Routine) - Closed Specialty Diagnoses / Procedures Referred By Contac t Referred To Contact Spine Hu Mon D.C. [address] [place] [address] [facility] Referral ID Status Reason Start Date Expiration Date Visits Re quested Visits Authorized [id number] Closed 11/10/2023 05/11/2025 2 2 Reason for Visit * Outpatient (Routine) - Closed Specialty Diagnoses / Procedures Referred By Contac t Referred To Contact Spine Diagnoses Pain Neck Scoliosis Regulo Tello APRN, C.N.P. [address] [place] [address] [facility] Referral ID Status Reason Start Date Expiration Date Visits Re quested Visits Authorized [id number] Closed 08/30/2023 02/28/2025 1 1 Encounter Details Date Type Department Care Team (Latest Contact Info) Description 11/10/2023 8:00 AM CDT Comprehensive Visit Department of Spine in [place], [place] 200 [place] [phone] Regulo Tello APRN, C.N.P. [address] [place] [address] Hu Mon D.C. [address] [place] [address] Dysfunction Somatic Thoracic Region (Primary Dx); Dysfunction [...] care, and heating? Not very hard 01/23/2020 [facility] [place] of Occupat ional Health - Occupational Stress [...] documented in this encounter Consult Notes * Hu Mon D.C. - 11/10/2023 8:00 AM CDT [...] surgery. Recent tests include X-ray. X-ray details: [facility] Recent treatments: ice/heat, medications and pain clinic. [...] sitting.). Recent tests include X-ray. X-ray details: [facility] Recent treatments: pain clinic and physical therapy. [...] CDT Office Visit Department of Spine in [place], [place] [address] [place] [phone] Hu Mon D.C. [address] [place] [phone] 01/19/2024 8:00 AM CDT Office Visit Department of Spine in [place], [place] [address] [place] [phone] Hu Mon D.C. [address] [place] [phone] Scheduled Referrals Name Type Priority Associated Diagnoses [...] Total Score: 1 04/16/20 15 8:53 AM WINEMAKER documented as of this encounter
--- OUTSIDE RECORDS SUMMARY | 2023-12-08 10:03 | XMS_ITS ---
Author Organization [facility] Address [address] [place] [address] Care Team Providers Care Surgical Dressing Maker Name Role Phone Unavailable Unavailable Unavailable Surgery Details Not on file Complications Check Surgery Details section. Procedure Estimated Blood Loss Check Surgery Details section. Procedure Findings Check Surgery Details section. Procedure Specimens Taken Check Surgery Details section.
--- OUTSIDE RECORDS SUMMARY | 2023-12-08 10:04 | XMS_ITS | Encounter Summary ---
Author Organization [facility] Address [address] [place] [address] Care Team Providers Care Lithographic Press Operator Name Role Phone Unavailable Primary Care Provider Unavailabl e Reason for Referral * Outpatient (Routine) - Closed Specialty Diagnoses / Procedures Referred By Contac t Referred To Contact Diagnoses Scoliosis Procedures DX Entire Spine Scoliosis 2-3 Views Regulo Tello APRN, C.N.P. [address] [place] [address] [facility] Referral ID Status Reason Start Date Expiration Date Visits Re quested Visits Authorized [id number] Closed 08/30/2023 08/29/2024 1 1 Reason for Visit * Outpatient (Routine) - Closed Specialty Diagnoses / Procedures Referred By Contac t Referred To Contact Diagnoses Scoliosis Procedures DX Entire Spine Scoliosis 2-3 Views Regulo Tello APRN, C.N.P. [address] [place] [address] [facility] Referral ID Status Reason Start Date Expiration Date Visits Re quested Visits Authorized [id number] Closed 08/30/2023 08/29/2024 1 1 Encounter Details Date Type Department Care Team (Latest Contact Info) Description 08/30/2023 9:55 AM CDT - 08/30/2023 11:59 PM CDT Hospital Encounter Department of Radiology, [facility], in [place], [place] [address] [place] [address] Regulo Tello, LAUREANO, C.N.P. [address] [place] [address] Scoliosis Discharge Disposition: Home or Self Care [...] care, and heating? Not very hard 01/23/2020 [facility] [place] of Occupat ional Health - Occupational Stress [...] CDT Office Visit Department of Spine in [place], [place] [address] [place] [phone] Hu Mon D.C. [address] [place] [phone] 01/19/2024 8:00 AM CDT Office Visit Department of Spine in [place], [place] [address] [place] [phone] Hu Mon D.C. [address] [place] [phone] documented as of this encounter Procedures Procedure [...] Total Score: 1 04/16/20 15 8:53 AM WEARING APPAREL FOLDER documented as of this encounter
--- OUTSIDE RECORDS SUMMARY | 2023-12-08 10:04 | XMS_ITS | Encounter Summary ---
Author Organization [facility] Address [address] [place] [address] Care Team Providers Care Ob Gyn Physician Assistant Name Role Phone Unavailable Primary Care Provider Unavailabl e Reason for Referral * Outpatient (Routine) - Closed Specialty Diagnoses / Procedures Referred By Contac t Referred To Contact Diagnoses Other Forms Of Scoliosis Lumbar Region Pain Neck Procedures DX Cervical Spine 2-3 Views Dionisio Carreon M.D. [address] [place] [address] [facility] Referral ID Status Reason Start Date Expiration Date Visits Re quested Visits Authorized [id number] Closed 06/08/2023 06/07/2024 1 1 * Outpatient (Routine) - Closed Specialty Diagnoses / Procedures Referred By Contac t Referred To Contact Diagnoses Other Forms Of Scoliosis Lumbar Region Pain Back Procedures DX Lumbar Spine 2-3 Views Dionisio Carreon M.D. [address] [place] [address] [facility] Referral ID Status Reason Start Date Expiration Date Visits Re quested Visits Authorized [id number] Closed 06/08/2023 06/07/2024 1 1 Reason for Visit * Outpatient (Routine) - Closed Specialty Diagnoses / Procedures Referred By Contac t Referred To Contact Diagnoses Other Forms Of Scoliosis Lumbar Region Pain Neck Procedures DX Cervical Spine 2-3 Views Dionisio Carreon M.D. [address] [place] [address] [facility] Referral ID Status Reason Start Date Expiration Date Visits Re quested Visits Authorized [id number] Closed 06/08/2023 06/07/2024 1 1 Encounter Details Date Type Department Care Team (Latest Contact Info) Description 08/30/2023 6:16 AM CDT - 08/30/2023 9:54 AM CDT Hospital Encounter Department of Radiology, [facility], in [place], [place] [address] [place] [phone] Dionisio Carreon M.D. [address] [place] [phone] Other Forms Of Scoliosis Lumbar Region; Pain [...] re latives? Once a week 01/23/2020 Attends [employer] Not on file 01/22 Active Member [...] care, and heating? Not very hard 01/23/2020 [facility] [place] of Occupat ional Health - Occupational Stress [...] mg by mouth. 10/20/2018 [facility] BIPAP machine for home use at pressure: [...] CDT Office Visit Department of Spine in [place], [place] [address] [place] [phone] Hu Mon D.C. [address] [place] [phone] 01/19/2024 8:00 AM CDT Office Visit Department of Spine in [place], [place] [address] [place] [phone] Hu Mon D.C. [address] [place] [phone] (work) documented as of this encounter Procedures [...] Total Score: 1 04/16/20 15 8:53 AM PADDING MACHINE OPERATOR documented as of this encounter
--- OUTSIDE RECORDS SUMMARY | 2023-12-08 10:04 | XMS_ITS | Clinical Summary ---
Author Organization [facility] Address [place], [place] [address] Care Team Providers Care Migration Agent Name Role Phone India Jacques MD Unavailable [phone] India Jacques MD Primary Care Provider [phone] Allergies Active Allergy Reactions Criticality Noted Date [...] Completed 03/13/2014 Medical Devices Implanted Type Area Icu Manager Device Identifier Shelf Expiration Date Model / Serial / Lot [id number] 30cc Mtf Chips Canclls Pouch [[id number]] Implanted:Qty: 1 on 07/08/2016 by Vicente Taylor MD at [facility] Explanted:at [facility] (Quantity not on file) Left: Shoulder Musculoskeletal Transplant 07/01/2018 061937# / [id number] / [id number] one Matrix 5cc Torsten Putty Dbm Implanted:Qty: 1 on 07/08/2016 by Vicente Taylor MD at [facility] Explanted:at [facility] (Quantity not on file) Left: Shoulder Medtronic Spine/Ortho 01/09/2019 65845# / [id number] / [id number] one Matrix 1cc Torsten Plus Paste Dbm Implanted:Qty: 1 on 07/08/2016 by Vicente Taylor MD at [facility] Explanted:at [facility] (Quantity not on file) Left: Shoulder Medtronic Spine/Ortho 03/11/2018 [id number]# / [id number] / [id number] one Matrix 10cc Torsten Puttydbm Implanted:Qty: 1 on 07/08/2016 by Vicente Taylor MD at [facility] Explanted:at [facility] (Quantity not on file) Left: Shoulder Medtronic Spine/Ortho 02/17/2019 88220# / [id number] / [id number] [id number] Comprehensive Rev - [id number] Implanted:Qty: 1 on 07/08/2016 by Vicente Taylor MD at [facility] Left: Shoulder [employer]ak [employer] 344100# / / [id number] Head Hum [id number] Versa Dialco Cr - [id number] Implanted:Qty: 1 on 07/08/2016 by Vicente Taylor MD at [facility] Left: Shoulder [employer] 863052# / / [id number] Adptr Shldr Versa-Dial Tape Red - [id number] Implanted:Qty: 1 on 07/08/2016 by Vicente Taylor MD at [facility] Left: Shoulder [employer] 165369# / / [id number] Explanted Type Area Icu Manager Device Identifier Shelf Expiration Date Model / Serial / Lot Guidewire Ball Tip - [id number] Explanted:Qty: 1 on 07/08/2016 at [facility] Left: Shoulder [facility] [id number] S# / / Insurance Payer Benefit Plan / Group Subscriber ID Effective Dates Phone Address Type MEDICARE PART B - HB USE ONLY MEDICARE PART B HB ONLY [id number] 2008-Presen t ATTN: CLAIMS [address] [place] [address] MEDICARE PART A - HB USE ONLY MEDICARE PART A HB ONLY [id number] 2008-Presen t ATTN: CLAIMS [address] [place] [address] MEDICARE PART B - HB USE ONLY MEDICARE PART B HB ONLY [id number] 2008-Presen t ATTN: CLAIMS [address] [place] [address] MEDICARE - PB USE ONLY MEDICARE PB ONLY [id number] 2008-Presen t ATTN: CLAIMS [address] [place] [address] [employer] [employer] [id number] 2013-Present [address] [place] [address] AARP AARP PB ONLY [id number] 2016-Present [address] [place] [address] AARP AARP HB ONLY [id number] 2020-Present [address] [place] [address] Advance Directives * Full Code (Latest Code [...] 11:58 AM 07/08/2016 8:28 PM Care Teams Migration Agent Relationship Specialty Start Date End Date India Jacques MD [address] [place] [address] PCP - General Internal Medicine 08/29/20 India Jacques MD [address] [place] [address] Internal Medicine 10/19/13
--- OUTSIDE RECORDS SUMMARY | 2023-12-08 10:04 | XMS_ITS | Encounter Summary ---
Author Organization [facility] Address [address] [place] [address] Care Team Providers Care Flight Paramedic Name Role Phone Unavailable Primary Care Provider Unavailabl e Reason for Referral * Outpatient (Routine) - Closed Specialty Diagnoses / Procedures Referred By Contac t Referred To Contact Diagnoses Scoliosis Procedures DX Entire Spine Scoliosis 2-3 Views Regulo Tello APRN, C.N.P. [address] [place] [address] [facility] Referral ID Status Reason Start Date Expiration Date Visits Re quested Visits Authorized [id number] Closed 08/30/2023 08/29/2024 1 1 * Outpatient (Routine) - Closed Specialty Diagnoses / Procedures Referred By Contac t Referred To Contact Spine Diagnoses Pain Neck Scoliosis Regulo Tello APRN, C.N.P. [address] [place] [address] [facility] Referral ID Status Reason Start Date Expiration Date Visits Re quested Visits Authorized [id number] Closed 08/30/2023 02/28/2025 1 1 Reason for Visit * Outpatient (Routine) - Closed Specialty Diagnoses / Procedures Referred By Contac t Referred To Contact Spine Diagnoses Other Forms Of Scoliosis Lumbar Region Pain Neck Dionisio Carreon M.D. [address] [place] [address] [facility] Referral ID Status Reason Start Date Expiration Date Visits Re quested Visits Authorized [id number] Closed 06/08/2023 06/07/2024 1 1 Encounter Details Date Type Department Care Team (Latest Contact Info) Description 08/30/2023 8:00 AM CDT Comprehensive Visit Department of Spine in [place], [place] [address] [place] [phone] Regulo Tello, LAURAENO, C.N.P. [address] [place] [address] Scoliosis (Primary Dx); Other Forms [...] re latives? Once a week 01/23/2020 Attends [employer] Not on file 01/22 Active Member [...] care, and heating? Not very hard 01/23/2020 [facility] [place] of Occupat ional Health - Occupational Stress [...] ILLNESS:Mr. Durbin is an 78-year-old patient from [place], [place], who [facility] [...] mg tablet Take 7.5 mg by mouth. [facility] BIPAP machine for home use at pressure: [...] stretch reflexes are physiologic and symmetric. No Mi sign. Plantar responses are down going. No [...] CDT Office Visit Department of Spine in [place], [place] [address] [place] [address] Hu Mon D.C. [address] [place] [phone] 01/19/2024 8:00 AM CDT Office Visit Department of Spine in [place], [place] [address] [place] [address] Hu Mon D.C. [address] [place] [phone] Scheduled Referrals Name Type Priority Associated Diagnoses [...] Total Score: 1 04/16/20 15 8:53 AM GEOLOGICAL ENGINEER documented as of this encounter
== END 2023-12-02 11:55 | disposition home or self-care (01) | DRG 580 ==
LOC: ED 10:04 → SS 10:07 → MEDSURG 12:51 → SS 11-30 14:33 → MEDSURG 12-02 10:31
PROVIDERS: Family Medicine; Orthopaedic Surgery Sports Medicine; Admitting Provider Family Medicine; Emergency Provider Family Medicine; PCP Internal Medicine; Visit Provider Surgery
PROC: 0L980ZX Drainage of Left Hand Tendon, Open Approach, Diagnostic (ICD-10-PCS; principal; 2023-11-29 09:45)
DX: L02.512 Cutaneous abscess of left hand (principal); L03.114 Cellulitis of left upper limb; Q79.60 Ehlers-Danlos syndrome, unspecified; I25.10 Atherosclerotic heart disease of native coronary artery without angina pectoris; G47.33 Obstructive sleep apnea (adult) (pediatric); I10 Essential (primary) hypertension; E66.9 Obesity, unspecified; F11.11 Opioid abuse, in remission; M13.842 Other specified arthritis, left hand; B95.61 Methicillin susceptible Staphylococcus aureus infection as the cause of diseases classified elsewhere; B95.7 Other staphylococcus as the cause of diseases classified elsewhere; Z68.28 Body mass index [BMI] 28.0-28.9, adult
CPT/HCPCS: 36415; 80048; 85025; 86140; 87070; 87075; 87186; 87205; 87493; 90714; 99285; A9153; A9270; J0665; J2543; J3370; J7030; J7050; J7120

== ENCOUNTER 2024-04-27 08:06 | Outpatient (CLI) | payer MEDICARE, SELFPAY ==
--- OUTSIDE RECORDS SUMMARY | 2024-05-01 02:29 | XMS_ITS ---
Author Organization [facility] Address [address] [place] [address] Care Team Providers Care Meat Clerk Name Role Phone Unavailable Unavailable Unavailable Surgery Details Not on file Complications Check Surgery Details section. Procedure Estimated Blood Loss Check Surgery Details section. Procedure Findings Check Surgery Details section. Procedure Specimens Taken Check Surgery Details section.
--- OUTSIDE RECORDS SUMMARY | 2024-05-01 02:29 | XMS_ITS | Referral Summary ---
Author Organization [facility] Address [address] [place] [address] Care Team Providers Care Six Sigma Project Manager Name Role Phone Unavailable Primary Care Provider Unavailabl e Source Comments Patient records contain information from all sites at [facility]. For routine questions regarding patient records, call [phone] during business hours, M-F 8:00 AM - 5:00 PM Central Time. Record requests for emergency care only can be directed to [phone] at any time.[facility] Allergies Active Allergy Reactions Criticality Noted Date Comments Amoxicillin-Pot Clavulanate Rash Low 12/21/2023 Cephalexin Other (see comments),Swelling,An aphylaxis High 03/15/2014 Difficult breathing Clindamycin Other (see comments) Low 03/25/2023 Nut - Unspecified Itching 06/22/2014 Pistachio Clams GI intolerance 06/22/2014 Medications ascorbic acid, vitamin C, (VITAMIN C) 500 mg tablet Take 1 tablet by mouth 2 (two) times a day. 5 Active buPROPion XL (WELLBUTRIN XL) 150 mg 24 hr tablet Take 150 mg by mouth. 4 Active clopidogreL (PLAVIX) 75 mg tablet Take 75 mg by mouth. 4 Active desoximetasone (TOPICORT) 0.25 % ointment Apply topically. Active diclofenac sodium (VOLTAREN) 1 % gel 5 Active escitalopram (LEXAPRO) 20 mg tablet Take 1 tablet by mouth daily. 5 Active hydroCHLOROthia zide (HYDRODIURIL) 25 mg tablet 9 Active miscellaneous medical supply misc BIPAP machine for home use at pressure: EPAP min/max- 12cm/H2O, PS min/max- 3-15 cm/H2O, I time to 3, BR- 10; Heated humidifier x 1, 9 Active methylphenidate HCl (RITALIN) 5 mg tablet 2 (two) times a day. 6 Active mirtazapine (REMERON) 7.5 mg tablet Take 7.5 mg by mouth. 9 Active multivitamin tablet Take 1 tablet by mouth daily. 5 Active pantoprazole (PROTONIX) 40 mg EC tablet Take 40 mg by mouth. 4 Active timolol (TIMOPTIC) 0.25 % ophthalmic solution 8 Active ketoconazole (NIZORAL) 2 % shampoo WASH AFFECTED AREAS ON FACE AND SCALP 2-3X WEEKLY. LATHER AND LET SIT FOR SEVERAL MINUTES BEFORE RINSING. 4 Active ketoconazole (NIZORAL) 2 % cream APPLY A THIN LAYER TO AFFECTED AREA ON THE FOREHEAD 1-2X DAILY ONGOING. 4 Active albuterol 90 mcg/actuation inhaler Inhale. 3 Active Active Problems Problem Noted Date Diagnosed [...] re latives? Once a week 01/23/2020 Attends Yazdanism Services Not on file 01/22 Active Member of Clubs or Organizations Not on f ile 01/23/2020 Attends Club or Organization Meetings Not on shanta e 01/23/2020 Marital Status Not on file 01/23/2020 AUDIT-C Answer Date Recorded Frequency of Alcohol Consumption 2-4 times a mon th 01/23/2020 Average Number of Drinks 1 or 2 020 Frequency of Binge Drinking Never 05/2019 Overall Financial Resource Strain (CARDIA) Answe r Date Recorded How hard is it for you to pa y for the very basics like food, housing, medical care, and heating? Not very hard 01/23/2020 [facility] [facility] - Occupational Stress [...] Assigned at Male 11/07/2018 10:45 PM CDT Legal Sex Male 8:41 AM WHITE METAL CORROSION PROOFER Gender Identity Male 11/07/2018 10:38 PM CDT Sexual Orientation Straight 11/07/2018 10 :38 PM CDT Last Filed Vital Signs Vital Sign Reading Time Taken Comments Blood Pressure 128/71 11/10/2023 7:50 AM CDT Pulse 73 11/10/2023 7:50 AM CDT Temperature - - Respiratory Rate 14 07/11/2014 1:05 PM WHITE METAL CORROSION PROOFER Vital sign result from Clinical Notes. Oxygen Saturation - - Inhaled Oxygen Concentration - - Weight 86.4 kg (190 lb 7.6 oz) 06/08/2023 3:13 PM WHITE METAL CORROSION PROOFER Height 169.2 cm (5' 6.61) 06/08/2023 3 :13 PM WHITE METAL CORROSION PROOFER Body Mass Index 30.18 06/08/2023 3:13 PM WHITE METAL CORROSION PROOFER Plan of Treatment Not on file Medical Devices Implanted Type Area Trucking Contractor Device Identifier Shelf Expiration Date Model / [...] Comments SODIUM, S/P Routine 06/08/2023 6:53 AM WHITE METAL CORROSION PROOFER Vascular Agustina Danlos Syndrome (HCC) POTASSIUM, S/P Routine 06/08/2023 6:53 AM WHITE METAL CORROSION PROOFER Vascular Agustina Danlos Syndrome (HCC) CREATININE WITH EGFR, S/P Routine 06/08/2023 6:53 AM WHITE METAL CORROSION PROOFER Vascular Agustina Danlos Syndrome (HCC) from Last 3 Months or Most Recently Relevant to Health Maintenance Results * Sodium (06/08/2023 6:53 AM WHITE METAL CORROSION PROOFER) Sodium, S 141 135 - 145 mmol/L 06/08/2023 7:55 AM WHITE METAL CORROSION PROOFER DTL Blood (Blood, Venous) 06/08/2023 6:53 AM WHITE METAL CORROSION PROOFER 06/08/2023 7:36 AM WHITE METAL CORROSION PROOFER us Dionisio Carreon M.D. LAB BLOOD ADD-ON Final Re sult [facility] [address] [place] [address], [facility] [address] [place] [address] * Potassium (06/08/2023 6:53 AM WHITE METAL CORROSION PROOFER) Potassium, S 3.9 3.6 - 5.2 mmol/L 06/08/2023 7:55 AM WHITE METAL CORROSION PROOFER DTL Blood (Blood, Venous) 06/08/2023 6:53 AM WHITE METAL CORROSION PROOFER 06/08/2023 7:36 AM WHITE METAL CORROSION PROOFER us Dionisio Carreon M.D. LAB BLOOD ADD-ON Final Re sult Performing Organization Address City/[facility]/ZIP Co de Phone Number [facility] [address] [place] [address], [facility] [address] [place] [address] * Creatinine with Estimated GFR (06/08/2023 6:53 AM WHITE METAL CORROSION PROOFER) Creatinine 0.84 0.74 - 1.35 mg/dL 06/08/2023 7:55 AM WHITE METAL CORROSION PROOFER DTL Estimated GFR (eGFR) 88 >=60 mL/min/BSA 06/08/2023 7:55 AM WHITE METAL CORROSION PROOFER DTL Comment: Estimated GFR calculated using the 2020 CKD_EPI creatinine equation. Blood (Blood, Venous) 06/08/2023 6:53 AM WHITE METAL CORROSION PROOFER 06/08/2023 7:36 AM WHITE METAL CORROSION PROOFER us Dionisio Carreon M.D. LAB BLOOD ADD-ON Final Re sult [facility] [address] [place] [address], [facility] [address] [place] [address] from Last 3 Months or Most Recently Relevant to Health Maintenance Insurance MEDICARE [facility]
--- OUTSIDE RECORDS SUMMARY | 2024-05-01 02:29 | XMS_ITS | Clinical Summary ---
Author Organization [facility] Address [place], [place] [address] Care Team Providers Care Geography Department Chair Name Role Phone India Jacques MD Unavailable India Jacques MD Primary Care Provider [phone] Allergies Active Allergy Reactions Criticality Noted Date Comments Cephalexin Laryngospasm,Throat Swelling/Closing High 03/15/2014 Difficult breathing Nut - Unspecified Itching 06/22/2014 Pistachio Shellfish Derived Nausea Only,Throat Swelling/Closing High 07/08/2016 Medications pantoprazole (PROTONIX) 40 mg delayed-release tablet Take 1 tablet by mouth once daily. 0 02/02/20 14 Active clopidogrel (PLAVIX) 75 mg tablet Take 1 tablet by mouth once daily. 0 02/02/20 14 Active buPROPion (WELLBUTRIN XL) 150 mg Extended-Release tablet Take 1 tablet by mouth every morning. 0 02/02/20 14 Active VOLTAREN gel 02/28/20 15 Active desoximetasone 0.25% topical (TOPICORT) 0.25 % ointment Apply topically to affected area(s) 2 times daily. Active escitalopram oxalate (LEXAPRO) 10 mg tablet Take 20 mg by mouth every morning. 0 01/11/20 18 Active timolol maleate (TIMOPTIC) 0.25 % ophthalmic solution Place 1 Drop into both eyes once daily. 06/27/20 18 Active hydroCHLOROthiazide (HCTZ) 25 mg tablet Take 25 mg by mouth once daily. 11/24/19 18 Active oxymetazoline (AFRIN, OXYMETAZOLINE,) 0.05 % nasal spray Inhale in the nostril(s) 2 times daily if needed for Nasal Congestion. 0 02/29/20 18 Active multivitamin (MVI) tablet Take 1 tablet by mouth once daily. 0 02/29/20 18 Active rx prochlorperazine (COMPAZINE) 5 mg tablet (ED DC MED) Take 5 mg by mouth every 6 hours if needed. Active albuterol sulfate 90 mcg/actuation aebs Inhale 2 Puffs by mouth every 4 hours if needed. Active rosuvastatin (CRESTOR) 20 mg tabletIndications:Dy slipidemia,ASHD (arteriosclerotic heart disease) Take 1 Tablet (20 mg) by mouth at bedtime. 30 Tablet 2 10/16/19 21 Active mirtazapine (REMERON) 7.5 mg tabletIndications:In somnia, unspecified type Take 1 Tablet (7.5 mg) by mouth at bedtime. 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 [...] Recorded Sex Assigned at Not on file Legal Sex Male 9:32 AM CDT Gender Identity Not on file Sexual Orientation Not on file Obstetrics History Last Filed Vital Signs Vital Sign Reading Time Taken Comments Blood Pressure 118/74 11/26/2020 9:01 AM CDT Pulse 63 11/26/2020 9:01 AM CDT Temperature 35.8 C (96.5 F) 10/15/2020 4:47 PM CDT Respiratory Rate 16 10/15/2020 4:47 PM CDT [...] 65+ (1 of 1 - PCV) 02/24/2008 RSV vaccine for adults or (1 - 1-dose 75+ series) 2018 Depression screening for age 12+ 01/10/2019 01/11/20 18 COVID-19 vaccine series ( season) 2024 02/17/2023, 04/08/2022, 10/29/2021, Additional history exists Influenza for age 65+ 01/23/2024 05/08/2016 Tetanus booster 03/13/2024 03/13/2014 Tdap Completed 03/13/2014 Medical Devices Implanted Type Area Compliance Engineer Products Device Identifier Shelf Expiration Date Model / Serial / Lot [id number] 30cc Mtf Chips Canclls Pouch [[id number]] Implanted:Qty: 1 on 07/08/2016 by Vicente Taylor MD at [facility] Explanted:at [facility] (Quantity not on file) Left: Shoulder Musculoskeletal Transplant 07/01/2018 [id number]# / [id number] / [id number] one Matrix 5cc Shelby Putty Dbm Implanted:Qty: 1 on 07/08/2016 by Vicente Taylor MD at [facility] Explanted:at [facility] (Quantity not on file) Left: Shoulder Medtronic Spine/Ortho 01/09/2019 [id number]# / [id number] / [id number] one Matrix 1cc Torsten Plus Paste Dbm Implanted:Qty: 1 on 07/08/2016 by Vicente Taylor MD at [facility] Explanted:at [facility] (Quantity not on file) Left: Shoulder Medtronic Spine/Ortho 03/11/2018 [id number]# / [id number] / [id number] one Matrix 10cc Torsten Puttydbm Implanted:Qty: 1 on 07/08/2016 by Vicente Taylor MD at [facility] Explanted:at [facility] (Quantity not on file) Left: Shoulder Medtronic Spine/Ortho 02/17/2019 [id number]# / [id number] / [id number] [id number] Comprehensive Rev - [id number] Implanted:Qty: 1 on 07/08/2016 by Vicente Taylor MD at [facility] Left: Shoulder Isaak [employer]omet [id number]# / / [id number] Head Hum [id number] Versa Dialco Cr - [id number] Implanted:Qty: 1 on 07/08/2016 by Vicente Taylor MD at [facility] Left: Shoulder [employer] [id number]# / / [id number] Adptr Shldr Versa-Dial Tape Red - [id number] Implanted:Qty: 1 on 07/08/2016 by Vicente Taylor MD at [facility] Left: Shoulder [employer]ak [employer] [id number]# / / [id number] Explanted Type Area Compliance Engineer Products Device Identifier Shelf Expiration Date Model / Serial / Lot Guidewire Ball Tip - [id number] Explanted:Qty: 1 on 07/08/2016 at [facility] Left: Shoulder [employer] [facility] [id number] S# / / Insurance MEDICARE PB ONLY [facility] PB ONLY Member Subscriber Plan / Payer (Ef fective 2016-Present) Name:Vel Durbin Relation to Subscriber:Self Name:Vel Durbin Payer ID:Not on file Group ID:[id number] Type:Not on file Address: [address] [place] [phone] MEDICARE PART B HB ONLY [facility] HB [place] [address] MEDICARE PART B HB ONLY MEDICARE PART A HB ONLY Advance Directives * Full Code (Latest Code [...] 11:58 AM 07/08/2016 8:28 PM Care Teams Geography Department Chair Relationship Specialty Start Date End Date India Jacques MD [address] [place] [address] PCP - General Internal Medicine 08/29/20 India Jacques MD [address] [place] [address] Internal Medicine 10/19/13
--- OUTSIDE RECORDS SUMMARY | 2024-05-01 02:29 | XMS_ITS | Clinical Summary ---
Author Organization [facility] Address [address] [place] [address] Care Team Providers Care Fashion Supervisor Name Role Phone Unavailable Primary Care Provider Unavailabl e Source Comments Patient records contain information from all sites at [facility]. For routine questions regarding patient records, call [phone] during business hours, M-F 8:00 AM - 5:00 PM Central Time. Record requests for emergency care only can be directed to [phone] at any time.[facility] Allergies Active Allergy Reactions Criticality Noted [...] re latives? Once a week 01/23/2020 Attends Mormonism Services Not on file 01/22 Active Member [...] care, and heating? Not very hard 01/23/2020 [facility]at ional Health - Occupational Stress [...] PM CDT Legal Sex Male 8:41 AM VIBRATION ENGINEER Gender Identity Male 11/07/2018 10:38 PM CDT Sexual Orientation Straight 11/07/2018 10 :38 PM CDT Last Filed Vital Signs Vital Sign Reading Time Taken Comments Blood Pressure 128/71 11/10/2023 7:50 AM CDT Pulse 73 11/10/2023 7:50 AM CDT Temperature - - Respiratory Rate 14 07/11/2014 1:05 PM VIBRATION ENGINEER Vital sign result from Clinical Notes. Oxygen Saturation - - Inhaled Oxygen Concentration - - Weight 86.4 kg (190 lb 7.6 oz) 06/08/2023 3:13 PM VIBRATION ENGINEER Height 169.2 cm (5' 6.61) 06/08/2023 3 :13 PM VIBRATION ENGINEER Body Mass Index 30.18 06/08/2023 3:13 PM VIBRATION ENGINEER Plan of Treatment Health Maintenance Due Date Last Done Comments Zoster Vaccines (1 of 2) 1993 Pneumococcal vaccine (65+ years) (2 of 2 - PPSV23 or PCV20) 06/05/2016 06/05/2015, 06/10/2013 Depression Screening (Annual PHQ-2) 05/24/2023 Fall Risk Screen (Annual) 05/24/2023 COVID-19 Vaccine ( season) 2024 02/17/2023, 04/08/2022, 10/29/2021, Additional history exists Influenza Vaccine (#1) 2024 , 04/08/2022, 07/31/2019, Additional history exists Creatinine Level (Kidney Function Test) 06/08/2024 06/08/2023, 10/15/2020, 01/20/2013, Additional history exists Potassium Level 06/08/2024 06/08/2023, 09/22, 01/20/2013, Additional history exists Sodium Level 06/08/2024 06/08/2023, 09/22, 01/20/2013, Additional history exists DTaP,Tdap,and Td Vaccines (5 - Td or Tdap) 11/28/2033 11/29/2023, 03/12/2023, 03/12/2014, Additional history exists RSV vaccine - (32-36 weeks) or 60+ years Completed 03/01/2023 IPV Vaccines Aged Out No longer eligi ble based on patient's age to complete this topic Medical Devices Implanted Type Area Tube Winder Device Identifier Shelf Expiration Date Model / [...] Comments SODIUM, S/P Routine 06/08/2023 6:53 AM VIBRATION ENGINEER Vascular Agustina Danlos Syndrome (HCC) POTASSIUM, S/P Routine 06/08/2023 6:53 AM VIBRATION ENGINEER Vascular Agustina Danlos Syndrome (HCC) CREATININE WITH EGFR, S/P Routine 06/08/2023 6:53 AM VIBRATION ENGINEER Vascular Agustina Danlos Syndrome (HCC) from Last 3 Months or Most Recently Relevant to Health Maintenance Results * Sodium (06/08/2023 6:53 AM VIBRATION ENGINEER) Sodium, S 141 135 - 145 mmol/L 06/08/2023 7:55 AM VIBRATION ENGINEER DTL Blood (Blood, Venous) 06/08/2023 6:53 AM VIBRATION ENGINEER 06/08/2023 7:36 AM VIBRATION ENGINEER Dionisio Carreon M.D. LAB BLOOD ADD-ON Final Re sult [facility] [address] [place] [address], [place] [facility] [address] [place] [address] * Potassium (06/08/2023 6:53 AM VIBRATION ENGINEER) Potassium, S 3.9 3.6 - 5.2 mmol/L 06/08/2023 7:55 AM VIBRATION ENGINEER DTL Blood (Blood, Venous) 06/08/2023 6:53 AM VIBRATION ENGINEER 06/08/2023 7:36 AM VIBRATION ENGINEER us Dionisio Carreon M.D. LAB BLOOD ADD-ON Final Re sult Performing Organization Address [facility] [[email or web address]] Co de Phone Number [facility] [address] [place] [address], [facility] [address] [place] [address] * Creatinine with Estimated GFR (06/08/2023 6:53 AM VIBRATION ENGINEER) Creatinine 0.84 0.74 - 1.35 mg/dL 06/08/2023 7:55 AM VIBRATION ENGINEER DTL Estimated GFR (eGFR) 88 >=60 mL/min/BSA 06/08/2023 7:55 AM VIBRATION ENGINEER DTL Comment: Estimated GFR calculated using the 2020 CKD_EPI creatinine equation. Blood (Blood, Venous) 06/08/2023 6:53 AM VIBRATION ENGINEER 06/08/2023 7:36 AM VIBRATION ENGINEER us Dionisio Carreon M.D. LAB BLOOD ADD-ON Final Valeria samuels Performing Organization Address [facility]/ZIP Co de Phone Number [facility] [address] [place] [address], [facility] DTL [facility] [address] [place] [address] from Last 3 Months or Most Recently Relevant to Health Maintenance Insurance MEDICARE [employer]
== END 2024-04-27 08:07 | disposition home or self-care (01) ==
LOC: NFLDREF 05-01 02:27
PROVIDERS: PCP Internal Medicine; Referring Provider Internal Medicine; Visit Provider Internal Medicine
DX: I10 Essential (primary) hypertension (principal); I25.10 Atherosclerotic heart disease of native coronary artery without angina pectoris
CPT/HCPCS: 80048; 80061

== ENCOUNTER 2024-05-31 07:35 | Outpatient (CLI) | payer MEDICARE, SELFPAY | END 2024-05-31 07:36 | disposition home or self-care (01) | LOC: NFLDREF 06-03 12:50 | PROVIDERS: PCP Internal Medicine; Referring Provider Internal Medicine; Visit Provider Internal Medicine | DX: N52.9 Male erectile dysfunction, unspecified (principal) | CPT/HCPCS: 84270; 84402; 84403 ==

== ENCOUNTER 2024-10-18 10:23 | Outpatient (CLI) | payer MEDICARE, SELFPAY | END 2024-10-18 10:24 | disposition home or self-care (01) | LOC: NFLDREF 10-24 07:39 | PROVIDERS: PCP Internal Medicine; Referring Provider Internal Medicine; Visit Provider Internal Medicine | DX: R40.4 Transient alteration of awareness (principal) | CPT/HCPCS: 82384; 83835 ==